=== PATIENT | female | born 1950 | race Caucasian/White ===

== ENCOUNTER 2022-01-31 17:42 | Inpatient (IN) | payer MEDICARE, BC ==
--- NOTE | 2022-01-31 18:59 | ED ---
General Adult HPI - General Chief complaint: Shortness of Breath Stated complaint: Pneumonia Time Seen by Provider: 01/31/22 18:39 Source: patient, RN notes reviewed, old records reviewed Mode of arrival: EMS Limitations: no limitations - History of Present Illness Initial comments: This is a 71-year-old female presents emergency room stating she's had a 10 day history of cough and some shortness of breath. Patient states that she went and saw her doctor Dr. Bustamante and he told her she had pneumonia that she had to come to the emergency department for admission. Patient states she better not be admitted if she can go home. Patient denies chest pain or palpitations. Patient denies any lightheadedness or dizziness. Patient denies any fever. Patient denies any chills. Patient denies any numbness or weakness. Patient denies abdominal pain patient denies nausea vomiting diarrhea. - Related Data Allergies Allergy/AdvReac Type Severity Reaction Status Date / Time No Known Allergies Allergy Verified 01/31/22 17:59 Review of Systems ROS Statement: Those systems with pertinent positive or pertinent negative responses have been documented in the HPI. ROS Other: All systems not noted in ROS Statement are negative. General Exam - General Exam Comments Initial Comments: GENERAL: Patient is well-developed and well-nourished. Patient is nontoxic and well- hydrated and is in no acute distress. ENT: Neck is soft and supple. No significant lymphadenopathy is noted. Oropharynx is clear. Moist mucous membranes. Neck has full range of motion without hazel citing any pain. EYES: The sclera were anicteric and conjunctiva were pink and moist. Extraocular movements were intact and pupils were equal round and reactive to light. Eyelids were unremarkable. PULMONARY: Patient has occasional extra wheeze CARDIOVASCULAR: There is a regular rate and rhythm without any murmurs gallops or rubs. ABDOMEN: Soft and nontender with normal bowel sounds. SKIN: Skin is clear with no lesions or rashes and otherwise unremarkable. NEUROLOGIC: Patient is alert and oriented x3. Cranial nerves II through XII are grossly intact. Motor and sensory are also intact. Normal speech, volume and content. Symmetrical smile. MUSCULOSKELETAL: Normal extremities with adequate strength and full range of motion. LYMPHATICS: No significant lymphadenopathy is noted PSYCHIATRIC: Normal psychiatric evaluation. Limitations: no limitations Course Vital Signs 01/31/22 17:47 Temperature 98.3 F Pulse Rate 81 Respiratory 20 Rate Blood Pressure 133/64 Medical Decision Making - Medical Decision Making I interpreted the EKG EKG shows a sinus rhythm with occasional PAC at a rate of 89 bpm MT interval 235 QRS is 90 QT interval 311 QTC is 358. Patient's EKG shows no ST segment elevation or depression. Patient's chest x-ray was interpreted by me. Patient's chest x-ray showed a left upper lobe and left lower lobe pneumonia with a potential spiculated mass in the left lower lobe. Patient also had a hemoglobin was 6.9 I ordered 1 unit of packed red blood cells. I started the patient on antibiotics. I spoke with Dr. Rose he agreed to admit the patient admitted the patient wrote admitting orders and I continued antibiotics on the floor. - Lab Data Result diagrams: 01/31/22 19:38 01/31/22 19:38 Lab Results 01/31/22 01/31/22 01/31/22 Range/Units 19:38 19:38 19:38 WBC 18.9 H (3.8-10.6) k/uL RBC 1.89 L (3.80-5.40) m/uL Hgb 6.9 L* (11.4-16.0) gm/dL Hct 20.6 L (34.0-46.0) % MCV 108.9 H (80.0-100.0) fL MCH 36.7 H (25.0-35.0) pg MCHC 33.7 (31.0-37.0) g/dL RDW 18.6 H (11.5-15.5) % Plt Count 433 (150-450) k/uL MPV 9.9 Neutrophils % (Manual) 84 % Band Neuts % (Manual) 3 % Lymphocytes % (Manual) 7 % Monocytes % (Manual) 6 % Neutrophils # (Manual) 16.40 H (1.3-7.7) k/uL Lymphocytes # (Manual) 1.32 (1.0-4.8) k/uL Monocytes # (Manual) 1.13 H (0-1.0) k/uL Nucleated RBCs 0 (0-0) /100 WBC Manual Slide Review Performed Hypochromasia Slight Poikilocytosis Slight Anisocytosis Slight Macrocytosis Marked A Sodium 134 L (137-145) mmol/L Potassium 3.6 (3.5-5.1) mmol/L Chloride 98 (98-107) mmol/L Carbon Dioxide 25 (22-30) mmol/L Anion Gap 11 mmol/L BUN 31 H (7-17) mg/dL Creatinine 1.10 H (0.52-1.04) mg/dL Est GFR (CKD-EPI)AfAm 59 (>60 ml/min/1.73 sqM) Est GFR (CKD-EPI)NonAf 51 (>60 ml/min/1.73 sqM) Glucose 125 H (74-99) mg/dL Plasma Lactic Acid Walter 1.3 (0.7-2.0) mmol/L Calcium 9.0 (8.4-10.2) mg/dL Total Bilirubin 0.4 (0.2-1.3) mg/dL AST 30 (14-36) U/L ALT 24 (4-34) U/L Alkaline Phosphatase 107 (38-126) U/L Total Protein 7.2 (6.3-8.2) g/dL Albumin 3.6 (3.5-5.0) g/dL Critical Care Time Critical Care Time: Yes Total Critical Care Time: 35 Disposition Clinical Impression: Anemia, Left lower lobe pneumonia, Left upper lobe pneumonia Disposition: ADMITTED IP TO THIS HOSP Referrals: Hitesh Bustamante DO [Primary Care Provider] - 1-2 days Time of Disposition: 20:19
[2022-01-31 19:46] LABS: Anisocytosis Slight; HCT 20.6 % (34.0-46.0); Hypochromasia Slight; MCH 36.7 pg (25.0-35.0); MCHC 33.7 g/dL (31.0-37.0); MCV 108.9 fL (80.0-100.0); Macrocytosis Marked; Mean Platelet Volume 9.9; Platelet Count 433 k/uL (150-450); Poikilocytosis Slight; RBC 1.89 m/uL (3.80-5.40); RDW 18.6 % (11.5-15.5); WBC 18.9 k/uL (3.8-10.6)
[2022-01-31 19:51] LABS: HGB 6.9 gm/dL (11.4-16.0)
[2022-01-31 19:56] LABS: Albumin 3.6 g/dL (3.5-5.0); Potassium 3.6 mmol/L (3.5-5.1); Total Bilirubin 0.4 mg/dL (0.2-1.3); Total Protein 7.2 g/dL (6.3-8.2)
[2022-01-31 20:03] LABS: Band Neutrophils % 3 %; Lymphocytes # (M) 1.32 k/uL (1.0-4.8); Monocytes # (M) 1.13 k/uL (0-1.0); Neutrophils % (M) 84 %; Nucleated Red Blood Cells 0 /100 WBC (0-0); Total Cells Counted 100
[2022-01-31] MEDS ORDERED: AZITHROMYCIN 500 MG in SODIUM CHLORIDE 0.9% 250 ML IVPB STA (20:20)
[2022-01-31] MEDS ORDERED: PNEUMONIA PROTOCOL UTILIZED 1 EACH MISC PO PRN (20:20)
--- NOTE | 2022-01-31 20:21 | XR ---
EXAMINATION TYPE: XR chest 2V DATE OF EXAM: 01/31/2022 COMPARISON: NONE HISTORY: Short of breath TECHNIQUE: 2 views FINDINGS: There is an 8 cm masslike area of consolidation in the left upper lobe. There is coarsening of interstitial markings. No gross heart failure. Heart size is normal. No pleural effusion. There i s some linear infiltrate in the left lower lobe and right lower lobe posteriorly. Bony thorax appears intact. IMPRESSION: Pulmonary infiltrates as above. Masslike consolidation left upper lobe. Follow-up is darrius mmended.
[2022-01-31] MEDS ORDERED: SODIUM CHLORIDE 0.9% 500 ML 500 ML IV ONE (20:38)
[2022-01-31] MEDS ORDERED: SODIUM CHLORIDE 0.9% 1,000 ML IV ONE (20:38)
[2022-01-31 20:44] LABS: Anisocytosis Slight; Basophils # (A) 0.1 k/uL (0-0.2); Basophils % (A) 1 %; Eosinophils % (A) 0 %; HCT 21.8 % (34.0-46.0); HGB 7.3 gm/dL (11.4-16.0); Hypochromasia Slight; Lymphocytes # (A) 1.5 k/uL (1.0-4.8); Lymphocytes % (A) 8 %; MCH 36.6 pg (25.0-35.0); MCHC 33.6 g/dL (31.0-37.0); Macrocytosis Marked; Mean Platelet Volume 9.5; Monocytes # (A) 1.7 k/uL (0-1.0); Monocytes % (A) 9 %; Neutrophils # (A) 15.5 k/uL (1.3-7.7); Neutrophils % (A) 79 %; Platelet Count 448 k/uL (150-450); Poikilocytosis Slight; RDW 18.3 % (11.5-15.5); WBC 19.7 k/uL (3.8-10.6)
[2022-01-31 20:53] LABS: INR 1.1 (<1.2); Partial Thromboplastin Time 22.2 sec (22.0-30.0); Prothrombin Time 11.1 sec (9.0-12.0)
[2022-01-31 21:34] LABS: Polychromasia Present
[2022-01-31] MEDS ORDERED: RX INFO: IV CONTRAST WAS GIVEN 1 EACH MISC MISCELLANE PRN (22:17)
[2022-01-31] MEDS ORDERED: CALCIUM CARBONATE 500 MG CHEWABLE PO PRN (22:18)
[2022-01-31] MEDS ORDERED: MELATONIN 3 MG TABLET PO PRN (22:18)
[2022-01-31] MEDS ORDERED: NALOXONE 0.4 MG/ML 1 ML VIAL IV PRN (22:18)
[2022-01-31] MEDS ORDERED: LORazepam 0.5 MG TAB PO PRN (22:18)
[2022-01-31] MEDS ORDERED: ACETAMINOPHEN TAB 325 MG TAB PO PRN (22:18)
[2022-01-31] MEDS ORDERED: LACTULOSE 20 GM/30 ML CUP PO PRN (22:18)
[2022-01-31] MEDS ORDERED: ONDANSETRON 4 MG/2 ML VIAL IVP PRN (22:18)
--- NOTE | 2022-01-31 22:19 | P.HPIM ---
History of Present Illness H&P Date: 01/31/22 Chief Complaint: Short of breath This is a pleasant 71-year-old patient who is as established herself with her PCP Dr. Bustamante today. 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 Stem cell transplant was carried out. 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 Forward a week patient been having some cold chills cough. No fever no chills. Has recently noticed that she is getting increasing shortly breath and gets easily tired. Denies any weight loss. Appetite is fair. No change in bowel pattern. Had Hx x-ray was admitted for pneumonia. Also for a hemoglobin of 6.9. During that she is symptomatic weak and tired she'll be transfused blood. 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 Smoked a pack a day for over 35 years stopped about 15 years ago. Alcohol rarely Family history: Reviewed, noncontributory to presentation Physical examination: VITAL SIGNS: 98.3, 91, 20, 133/64, 94% on 2 L GENERAL: BMI 19.8, 10 pills sitting up awake tired. Clubbing. Loss of muscle mass and subcutaneous fat EYES: Pupils equal. Conjunctiva normal. HEENT: External appearance of nose and ears normal, oral cavity grossly normal. NECK: JVD not raised; masses not palpable. HEART: First and second heart sounds are normal; no edema. LUNGS:[ Respiratory rate increased, diminished breath sounds on expiration and wheezing some scattered crackles. ABDOMEN: Soft, nontender, liver spleen not palpable, no masses palpable. PSYCH: Alert and oriented x3; mood and affect normal. MUSCULOSKELETAL:No Clubbing/cyanosis;muscles-grossly intact, OA NEUROLOGICAL: Cranial nerves grossly intact; no facial asymmetry, power and sensation grossly intact. LYMPHATICS: No lymph nodes palpable in the axilla and neck INVESTIGATIONS, reviewed in the clinical context: White count 18.9 hemoglobin 6.9 MCV 108.9 platelets 433 sodium 1:30/83.6 BUN 31 and creatinine 1.10 Stool occult blood: Negative COVID 19 PCR: Not detected EKG tracing personally reviewed by me-normal sinus rhythm. Nonspecific T-wave changes. Chest x-ray film personally reviewed by me-masslike consolidation left upper lobe. Coarse markings. Hyperinflation Assessment and plan: -Suspect underlying pneumonia left upper lobe, gram-negative organism suspected IV ceftriaxone. -Concern for underlying malignancy left upper lobe in a previous smoker. Computed tomography scan chest with contrast in a.m. -Acute COPD exacerbation in an ex-smoker DuoNeb, Pulmicort -Mild protein calorie malnutrition Ensure IV ceftriaxone. DuoNeb. Nebulized Pulmicort. Medications and Allergies Home Medications Medication Instructions Recorded Confirmed Type Albuterol Nebulized [Ventolin 2.5 mg INHALATION RT-QID PRN 01/31/22 01/31/22 History Nebulized] Budesonide/Formoterol Fumarate 2 puff INHALATION RT-BID 01/31/22 01/31/22 History [Symbicort 160-4.5 Mcg Inhaler] Cholecalciferol [Vitamin D3 (25 50 mcg PO DAILY 01/31/22 01/31/22 History Mcg = 1000 Iu)] Montelukast [Singulair] 10 mg PO HS 01/31/22 01/31/22 History Vit C/E/Zn/Coppr/Lutein/Zeaxan 1 cap PO BID 01/31/22 01/31/22 History [Preservision Areds 2 Softgel] Allergies Allergy/AdvReac Type Severity Reaction Status Date / Time No Known Allergies Allergy Verified 01/31/22 20:53 Physical Exam Vitals: Vital Signs Temp Pulse Pulse Resp BP BP Pulse Ox 01/31/22 21:29 98.2 F 91 15 145/73 95 01/31/22 20:29 91 20 141/57 94 L 01/31/22 17:47 98.3 F 81 20 133/64 Intake and Output 01/31/22 01/31/22 01/31/22 06:59 14:59 22:59 Other: Weight 50.802 kg Results CBC & Chem 7: 01/31/22 20:38 01/31/22 19:38 Labs: Abnormal Lab Results - Last 24 Hours (Table) 01/31/22 01/31/22 01/31/22 Range/Units 19:38 19:38 20:23 WBC 18.9 H (3.8-10.6) k/uL RBC 1.89 L (3.80-5.40) m/uL Hgb 6.9 L* (11.4-16.0) gm/dL Hct 20.6 L (34.0-46.0) % MCV 108.9 H (80.0-100.0) fL MCH 36.7 H (25.0-35.0) pg RDW 18.6 H (11.5-15.5) % Neutrophils # (1.3-7.7) k/uL Neutrophils # (Manual) 16.40 H (1.3-7.7) k/uL Monocytes # (0-1.0) k/uL Monocytes # (Manual) 1.13 H (0-1.0) k/uL Macrocytosis Marked A Sodium 134 L (137-145) mmol/L BUN 31 H (7-17) mg/dL Creatinine 1.10 H (0.52-1.04) mg/dL Glucose 125 H (74-99) mg/dL Crossmatch See Detail 01/31/22 Range/Units 20:38 WBC 19.7 H (3.8-10.6) k/uL RBC 2.00 L (3.80-5.40) m/uL Hgb 7.3 L (11.4-16.0) gm/dL Hct 21.8 L (34.0-46.0) % MCV 109.0 H (80.0-100.0) fL MCH 36.6 H (25.0-35.0) pg RDW 18.3 H (11.5-15.5) % Neutrophils # 15.5 H (1.3-7.7) k/uL Neutrophils # (Manual) (1.3-7.7) k/uL Monocytes # 1.7 H (0-1.0) k/uL Monocytes # (Manual) (0-1.0) k/uL Macrocytosis Marked A Sodium (137-145) mmol/L BUN (7-17) mg/dL Creatinine (0.52-1.04) mg/dL Glucose (74-99) mg/dL Crossmatch
[2022-01-31] MEDS ORDERED: AZITHROMYCIN 500 MG in SODIUM CHLORIDE 0.9% 250 ML IVPB ONE (23:00)
[2022-01-31] MEDS: SODIUM CHLORIDE 0.9% 1,000 ML IV SCH (23:08)
[2022-01-31] MEDS: ENOXAPARIN 40 MG/0.4 ML SYRINGE SQ SCH (23:56)
[2022-02-01 06:49] LABS: African American GFR (CKD) 61 (>60 ml/min/1.73 sqM); Anion Gap 5 mmol/L; Blood Urea Nitrogen 27 mg/dL (7-17); Calcium 8.4 mg/dL (8.4-10.2); Carbon Dioxide 27 mmol/L (22-30); Chloride 105 mmol/L (98-107); Glucose 130 mg/dL (74-99); Non-African American GFR(CKD) 53 (>60 ml/min/1.73 sqM); Potassium 3.8 mmol/L (3.5-5.1); Sodium 137 mmol/L (137-145)
--- NOTE | 2022-02-01 07:09 | P.GSCN ---
History of Present Illness Consult date: 02/01/22 History of present illness: Patient presented to the hospital with hemoglobin less than 7.0. She is status post transfusion. Patient has pre-existing history of AML. Last upper endoscopy was at [facility] over 5+ years ago. Patient pending computed tomography scan for evaluation of lung mass. We'll proceed with upper endoscopy for anemia assessment today. Colonoscopy after bowel prep while inpatient. 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 History of Any Multi-Drug Resistant Organisms: None Reported Past Surgical History: Tonsillectomy Past Anesthesia/Blood Transfusion Reactions: No Reported Reaction Past Psychological History: No Psychological Hx Reported Smoking Status: Former smoker Medications and Allergies Home Medications Medication Instructions Recorded Confirmed Type Albuterol Nebulized [Ventolin 2.5 mg INHALATION RT-QID PRN 01/31/22 01/31/22 History Nebulized] Budesonide/Formoterol Fumarate 2 puff INHALATION RT-BID 01/31/22 01/31/22 History [Symbicort 160-4.5 Mcg Inhaler] Cholecalciferol [Vitamin D3 (25 50 mcg PO DAILY 01/31/22 01/31/22 History Mcg = 1000 Iu)] Montelukast [Singulair] 10 mg PO HS 01/31/22 01/31/22 History Vit C/E/Zn/Coppr/Lutein/Zeaxan 1 cap PO BID 01/31/22 01/31/22 History [Preservision Areds 2 Softgel] Allergies Allergy/AdvReac Type Severity Reaction Status Date / Time No Known Allergies Allergy Verified 01/31/22 20:53 Surgical - Exam Vital Signs Temp Pulse Resp BP 98.3 F 81 20 133/64 01/31/22 17:47 01/31/22 17:47 01/31/22 17:47 01/31/22 17:47 Results - Labs 01/31/22 20:38 02/01/22 06:05 Abnormal Lab Results - Last 24 Hours (Table) 01/31/22 01/31/22 01/31/22 Range/Units 19:38 19:38 20:23 WBC 18.9 H (3.8-10.6) k/uL RBC 1.89 L (3.80-5.40) m/uL Hgb 6.9 L* (11.4-16.0) gm/dL Hct 20.6 L (34.0-46.0) % MCV 108.9 H (80.0-100.0) fL MCH 36.7 H (25.0-35.0) pg RDW 18.6 H (11.5-15.5) % Neutrophils # (1.3-7.7) k/uL Neutrophils # (Manual) 16.40 H (1.3-7.7) k/uL Monocytes # (0-1.0) k/uL Monocytes # (Manual) 1.13 H (0-1.0) k/uL Macrocytosis Marked A Sodium 134 L (137-145) mmol/L BUN 31 H (7-17) mg/dL Creatinine 1.10 H (0.52-1.04) mg/dL Glucose 125 H (74-99) mg/dL Crossmatch See Detail 01/31/22 02/01/22 Range/Units 20:38 06:05 WBC 19.7 H (3.8-10.6) k/uL RBC 2.00 L (3.80-5.40) m/uL Hgb 7.3 L (11.4-16.0) gm/dL Hct 21.8 L (34.0-46.0) % MCV 109.0 H (80.0-100.0) fL MCH 36.6 H (25.0-35.0) pg RDW 18.3 H (11.5-15.5) % Neutrophils # 15.5 H (1.3-7.7) k/uL Neutrophils # (Manual) (1.3-7.7) k/uL Monocytes # 1.7 H (0-1.0) k/uL Monocytes # (Manual) (0-1.0) k/uL Macrocytosis Marked A Sodium (137-145) mmol/L BUN 27 H (7-17) mg/dL Creatinine 1.07 H (0.52-1.04) mg/dL Glucose 130 H (74-99) mg/dL Crossmatch Diabetes panel 01/31/22 02/01/22 Range/Units 19:38 06:05 Sodium 134 L 137 (137-145) mmol/L Potassium 3.6 3.8 (3.5-5.1) mmol/L Chloride 98 105 (98-107) mmol/L Carbon Dioxide 25 27 (22-30) mmol/L BUN 31 H 27 H (7-17) mg/dL Creatinine 1.10 H 1.07 H (0.52-1.04) mg/dL Glucose 125 H 130 H (74-99) mg/dL Calcium 9.0 8.4 (8.4-10.2) mg/dL AST 30 (14-36) U/L ALT 24 (4-34) U/L Alkaline Phosphatase 107 (38-126) U/L Total Protein 7.2 (6.3-8.2) g/dL Albumin 3.6 (3.5-5.0) g/dL Calcium panel 01/31/22 02/01/22 Range/Units 19:38 06:05 Calcium 9.0 8.4 (8.4-10.2) mg/dL Albumin 3.6 (3.5-5.0) g/dL Pituitary panel 01/31/22 02/01/22 Range/Units 19:38 06:05 Sodium 134 L 137 (137-145) mmol/L Potassium 3.6 3.8 (3.5-5.1) mmol/L Chloride 98 105 (98-107) mmol/L Carbon Dioxide 25 27 (22-30) mmol/L BUN 31 H 27 H (7-17) mg/dL Creatinine 1.10 H 1.07 H (0.52-1.04) mg/dL Glucose 125 H 130 H (74-99) mg/dL Calcium 9.0 8.4 (8.4-10.2) mg/dL Adrenal panel 01/31/22 02/01/22 Range/Units 19:38 06:05 Sodium 134 L 137 (137-145) mmol/L Potassium 3.6 3.8 (3.5-5.1) mmol/L Chloride 98 105 (98-107) mmol/L Carbon Dioxide 25 27 (22-30) mmol/L BUN 31 H 27 H (7-17) mg/dL Creatinine 1.10 H 1.07 H (0.52-1.04) mg/dL Glucose 125 H 130 H (74-99) mg/dL Calcium 9.0 8.4 (8.4-10.2) mg/dL Total Bilirubin 0.4 (0.2-1.3) mg/dL AST 30 (14-36) U/L ALT 24 (4-34) U/L Alkaline Phosphatase 107 (38-126) U/L Total Protein 7.2 (6.3-8.2) g/dL Albumin 3.6 (3.5-5.0) g/dL
[2022-02-01] MEDS: SODIUM CHLORIDE 0.9% 1,000 ML IV SCH ×2 (07:45→18:50)
--- NOTE | 2022-02-01 08:06 | CT ---
EXAMINATION TYPE: CT chest w con DATE OF EXAM: 02/01/2022 COMPARISON: None HISTORY: Left upper lobe suspected mass CT DLP: 181.4 mGycm Automated exposure control for dose reduction was used. CONTRAST: CT scan of the chest is performed with IV Contrast, patient injected with 100 ml mL of Isovue 370. FINDINGS: LUNGS: There is a left upper lobe mass measuring 6.3 x 5.7 cm with early central necrosis. This is fe lt to reflect malignancy until proven otherwise. There is extension to the lateral pleural surface. L eft apical pleural thickening noted as well. No additional mass is identified at this time. There are basilar areas of atelectasis or infiltrate. Groundglass density right upper lobe may reflect inflamm atory process. A few scattered emphysematous bulla noted. MEDIASTINUM: There are no greater than 1 cm hilar or mediastinal lymph nodes. No pericardial effusi on is seen. Thoracic aorta is of normal caliber. The heart is not enlarged. UPPER ABDOMEN: No significant abnormality appreciated. OTHER: No additional significant abnormality is seen. IMPRESSION: 1. Left upper lobe mass felt to reflect malignancy until proven otherwise. Subcentimeter prevascular space lymph nodes noted. 2. Basilar atelectasis and/or infiltrates as well as scattered areas of groundglass infiltrate right upper lobe could reflect acute inflammatory process. Correlate clinically.
--- NOTE | 2022-02-01 08:10 | XR ---
EXAMINATION TYPE: XR chest 2V DATE OF EXAM: 02/01/2022 COMPARISON: 02/10/2022 HISTORY: Shortness of breath TECHNIQUE: Frontal and lateral views of the chest are obtained. FINDINGS: Scattered senescent parenchymal changes noted. Hyperinflation compatible with COPD. Left upper lobe mass persists. Patchy basilar densities may reflect infiltrate and/or atelectasis. Heart size is stable. Mediastinal structures are stable and grossly unremarkable. No evidence for hilar prominence. Degenerative changes dorsal spine. IMPRESSION: 1. Left upper lobe mass persists. Patchy basilar densities may reflect infiltrate and/or atelectasis.
[2022-02-01] MEDS: IPRATROPIUM-ALBUTEROL 3 ML NEB INHALATION SCH ×4 (08:11→20:00)
[2022-02-01] MEDS: BUDESONIDE 1 MG/2 ML NEBU INHALATION SCH ×2 (08:11→20:00)
[2022-02-01 11:15] LABS: % Iron Saturation 36.83 (12.00-45.00); Iron 59 ug/dL (50-170); Total Iron Binding Capacity 161 ug/dL (228-460)
[2022-02-01] MEDS ORDERED: MELATONIN 5 MG TABLET PO PRN (11:49)
[2022-02-01] MEDS ORDERED: ARTIFICIAL TEARS-HYPROMELLOSE DROPS 15 ML BTL BOTH EYES PRN (11:49)
[2022-02-01] MEDS ORDERED: LIDOCAINE 2% INJ 20 MG/ML (2 ML VIAL) ONE (12:08)
[2022-02-01] MEDS ORDERED: PROPOFOL 10 MG/ML 20 ML VIAL IV ONE (12:08)
[2022-02-01] MEDS ORDERED: IV FLUID CONTINUATION 500 ML IV ONE (12:16)
[2022-02-01] MEDS: ENOXAPARIN 40 MG/0.4 ML SYRINGE SQ SCH (12:32)
[2022-02-01 12:46] LABS: Anisocytosis Moderate; HCT 27.5 % (34.0-46.0); Hypochromasia Slight; MCH 35.4 pg (25.0-35.0); MCHC 34.4 g/dL (31.0-37.0); Macrocytosis Marked; Mean Platelet Volume 10.4; Platelet Count 414 k/uL (150-450); Poikilocytosis Slight; RBC 2.67 m/uL (3.80-5.40); RDW 21.4 % (11.5-15.5); WBC 20.7 k/uL (3.8-10.6)
--- NOTE | 2022-02-01 12:46 | P.PCN ---
Date of Procedure: 02/01/22 Description of Procedure: PREOPERATIVE DIAGNOSIS: Acute anemia History of AML Status post blood transfusion POSTOPERATIVE DIAGNOSIS: Diaphragmatic hiatal hernia History OPERATION: Esophagogastroduodenoscopy SURGEON: Emilia Ferrer MD ANESTHESIA: MAC. INDICATIONS: The patient is a 71-year-old female who presents with acute anemia status post blood transfusion. Benefits and risks of the procedure were described. Informed consent was obtained. DESCRIPTION: The patient was brought into the endoscopy suite and laid in the left lateral decubitus position. An Olympus gastroscope was passed along the posterior oropharynx down to the distal esophagus where the squamocolumnar junction was encountered at 36 cm from the incisors. The stomach was entered and no bile reflux was found. Additional findings are listed below. The first through third portion of the duodenum was examined and unremarkable. Retroflexion of the scope confirmed Hill grade 2 lower esophageal valve. The squamocolumnar junction demonstrated LA grade B erosive esophagitis. The stomach was desufflated. The patient tolerated the procedure well. FINDINGS: Squamocolumnar junction 36 cm from the incisors. Diaphragmatic hiatus at 40 cm. Hiatal hernia, 4 cm Hill grade 3 lower esophageal valve. LA grade B erosive esophagitis. No active duodenitis. No stigmata of bleeding Chronic gastritis RECOMMENDATIONS: 1. Diet as tolerated 2. Upper endoscopy as needed 3. Recommend colonoscopy for anemia evaluation
[2022-02-01 12:47] LABS: HGB 9.5 gm/dL (11.4-16.0); MCV 103.1 fL (80.0-100.0)
[2022-02-01 13:37] LABS: Band Neutrophils % 1 %; Eosinophils # (M) 0.21 k/uL (0-0.7); Lymphocytes # (M) 1.04 k/uL (1.0-4.8); Monocytes # (M) 0.21 k/uL (0-1.0); Neutrophils % (M) 92 %; Nucleated Red Blood Cells 0 /100 WBC (0-0); Polychromasia Present; Total Cells Counted 100
--- NOTE | 2022-02-01 13:38 | P.CNPUL ---
History of Present Illness Consult date: 02/01/22 Requesting physician: Christiano Rose Reason for consult: dyspnea, cough, COPD, hypoxemia, lung mass, abnormal CXR/CT Chief complaint: Shortness of breath and cough. History of present illness: Pulmonary consult dated 02/01/2022. 71-year-old female who presents to the emergency department on January 31, brought in by EMS, because of shortness of breath. She apparently has had a 10 day course of increasing shortness of breath, cough, and occasional phlegm production. She apparently was being treated by her primary care physician for pneumonia. Because she was not getting better, and actually getting worse, she was sent to the emergency room to be evaluated. The patient had a chest x-ray which showed a infiltrate/mass in the left upper lobe. CAT scan suggested mask, and likely we are dealing with bronchogenic carcinoma. The patient was a heavy smoker for a number of years, quit in 2006. White count 20.7, hemoglobin 9.5, hematocrit 27.5, and platelet count normal. Her initial hemoglobin was 6.9. Sodium 137, potassium 3.8, chlorides 105, CO2 27, BUN 27, and creatinine 1.07. Pro-calcitonin level was 0.45. TSH was normal. Testing for coronavirus was negative. Chest x-ray shows a mass in the left upper lobe. Computed tomography scan shows a left upper lobe mass, felt to reflect malignancy until proven otherwise. Review of Systems REVIEW OF SYSTEMS: CONSTITUTIONAL: [Negative.] NEUROLOGIC: [ Negative.] HEENT: [ Negative.] CARDIAC: [Negative.] PULMONARY: Shortness of breath and cough, and minimal phlegm production. GI: [Negative.] : [Negative.] RHEUMATOLOGIC: [ Negative.] IMMUNOLOGIC: [ Negative.] ENDOCRINE: [Negative. 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 History of Any Multi-Drug Resistant Organisms: None Reported Past Surgical History: Tonsillectomy Past Anesthesia/Blood Transfusion Reactions: No Reported Reaction Past Psychological History: No Psychological Hx Reported Smoking Status: Former smoker Medications and Allergies Home Medications Medication Instructions Recorded Confirmed Type Albuterol Nebulized [Ventolin 2.5 mg INHALATION RT-QID PRN 01/31/22 01/31/22 History Nebulized] Budesonide/Formoterol Fumarate 2 puff INHALATION RT-BID 01/31/22 01/31/22 History [Symbicort 160-4.5 Mcg Inhaler] Cholecalciferol [Vitamin D3 (25 50 mcg PO DAILY 01/31/22 01/31/22 History Mcg = 1000 Iu)] Montelukast [Singulair] 10 mg PO HS 01/31/22 01/31/22 History Vit C/E/Zn/Coppr/Lutein/Zeaxan 1 cap PO BID 01/31/22 01/31/22 History [Preservision Areds 2 Softgel] Lifitegrast [Xiidra] 1 dropper BOTH EYES BID 02/01/22 02/01/22 History Melatonin 5 mg PO HS PRN 02/01/22 02/01/22 History Propylene Glycol/Peg 400/Pf 1 dropper BOTH EYES QID PRN 02/01/22 02/01/22 History [Systane 0.3-0.4% Eye Drop] Allergies Allergy/AdvReac Type Severity Reaction Status Date / Time No Known Allergies Allergy Verified 01/31/22 20:53 Physical Exam Osteopathic Statement: *. No significant issues noted on an osteopathic structural exam other than those noted in the History and Physical/Consult. Vitals: Vital Signs Temp Pulse Pulse Resp BP BP Pulse Ox 02/01/22 11:48 76 02/01/22 11:34 76 02/01/22 08:25 74 02/01/22 08:15 74 95 02/01/22 07:13 97.9 F 84 12 126/62 95 02/01/22 05:21 98.3 F 85 18 109/58 96 02/01/22 02:32 97.9 F 89 16 118/61 96 02/01/22 02:12 98.3 F 98 18 99/46 93 L 02/01/22 01:56 100.3 F H 95 16 114/63 96 02/01/22 01:20 99.5 F 95 15 116/63 93 L 01/31/22 21:29 98.2 F 91 15 145/73 95 01/31/22 20:29 91 20 141/57 94 L 01/31/22 17:47 98.3 F 81 20 133/64 Intake and Output 01/31/22 02/01/22 02/01/22 22:59 06:59 14:59 Intake Total 310 200 Balance 310 200 Intake: IV 200 Blood Product 310 Rc As-1 Unit 310 [id number] Other: # Voids 3 Weight 50.802 kg No acute distress, oriented 3. No respiratory distress. Currently on 2 L of oxygen. HEENT examination is grossly unremarkable. Neck supple. Full range of motion. No adenopathy thyromegaly or neck vein distention. Cardiovascular examination reveals regular rhythm rate. S1-S2 normal. No S3 or S4. No discernible murmur noted. Heart rate 76 bpm. Lungs reveal scattered bilateral rhonchi and expiratory wheezes. No crackles. Breath sounds equal bilaterally. 2 L saturation is 95%. Abdomen soft bowel sounds are heard. No masses or tenderness. Extremities are intact. No cyanosis clubbing or edema. Skin is without rash or lesion. Neurologic examination is brief but nonfocal. Results - Laboratory Findings CBC and BMP: 02/01/22 11:40 02/01/22 06:05 PT/INR, D-dimer PT 11.1 sec (9.0-12.0) 01/31/22 20:23 INR 1.1 (<1.2) 01/31/22 20:23 Abnormal lab findings: Abnormal Labs 01/31/22 01/31/22 01/31/22 19:38 19:38 20:23 WBC 18.9 H RBC 1.89 L Hgb 6.9 L* Hct 20.6 L MCV 108.9 H MCH 36.7 H RDW 18.6 H Neutrophils # Neutrophils # (Manual) 16.40 H Monocytes # Monocytes # (Manual) 1.13 H Macrocytosis Marked A Sodium 134 L BUN 31 H Creatinine 1.10 H Glucose 125 H TIBC Transferrin Ferritin Procalcitonin Crossmatch See Detail 01/31/22 02/01/22 02/01/22 20:38 06:05 06:05 WBC 19.7 H RBC 2.00 L Hgb 7.3 L Hct 21.8 L MCV 109.0 H MCH 36.6 H RDW 18.3 H Neutrophils # 15.5 H Neutrophils # (Manual) Monocytes # 1.7 H Monocytes # (Manual) Macrocytosis Marked A Sodium BUN 27 H Creatinine 1.07 H Glucose 130 H TIBC 161 L Transferrin 115.0 L Ferritin 2866.0 H Procalcitonin Crossmatch 02/01/22 02/01/22 06:05 11:40 WBC 20.7 H RBC 2.67 L Hgb 9.5 L D Hct 27.5 L MCV 103.1 H D MCH 35.4 H RDW 21.4 H Neutrophils # Neutrophils # (Manual) Monocytes # Monocytes # (Manual) Macrocytosis Marked A Sodium BUN Creatinine Glucose TIBC Transferrin Ferritin Procalcitonin 0.45 H Crossmatch - Diagnostic Findings Chest x-ray: image reviewed CT scan - chest: image reviewed Assessment and Plan Assessment: Shortness of breath, likely related to underlying COPD exacerbation, from previous heavy tobacco use. 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 Previous history of tobacco use. Anemia, status post EGD, February 01, with findings of erosive gastritis, hiatal hernia, and diaphragmatic hiatus. Plan: Plan dated 02/01/2022. The patient will be maintained nothing by mouth after midnight, and be scheduled for bronchoscopy tomorrow. We explained to the patient that this lesion may represent bronchogenic carcinoma. The patient's currently on antibiotics in the form of azithromycin and ceftriaxone. She is also receiving breathing treatments in the form of albuterol sulfate and ipratropium bromide. Additional recommendations and suggestions are forthcoming. Prognosis is guarded. I will DC the Lovenox. Time with Patient: Greater than 30
--- NOTE | 2022-02-01 16:02 | P.PN ---
Progress Note - Text Progress Note Date: 02/01/22 Chief Complaint: Short of breath This is a pleasant 71-year-old patient who is as established herself with her PCP Dr. Bustamante today. 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 Stem cell transplant was carried out. 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 Forward a week patient been having some cold chills cough. No fever no chills. Has recently noticed that she is getting increasing shortly breath and gets easily tired. Denies any weight loss. Appetite is fair. No change in bowel pattern. Had Hx x-ray was admitted for pneumonia. Also for a hemoglobin of 6.9. During that she is symptomatic weak and tired she'll be transfused blood. Admitted with pneumonia, left upper lobe mass. Started on IV ceftriaxone. COPD exacerbation. DuoNeb. Nebulized Pulmicort. Significant anemia. 02/01/2022: Patient seen earlier this morning. Some wheezing and shortness of breath. Later to underwent EGD by Dr. Lam: LA grade B erosive esophagitis, chronic gastritis. Patient will have bronchoscopy tomorrow. Disc ussed with patient Active Medications Acetaminophen (Acetaminophen Tab 325 Mg Tab) 650 mg PO Q6HR PRN PRN Reason: Mild Pain or Fever > 100.5 Last Admin: 02/01/22 02:09 Dose: 650 mg Albuterol/Ipratropium (Ipratropium-Albuterol 3 Ml Neb) 3 ml INHALATION RT-QID DIEGO Last Admin: 02/01/22 15:49 Dose: 3 ml Artificial Tears (Artificial Tears-Hypromellose Drops 15 Ml Btl) 1 drops BOTH EYES QID PRN PRN Reason: Dry Eye(s) Azithromycin (Azithromycin 500 Mg Tab) 500 mg PO HS DIEGO; Protocol Stop: 02/02/22 21:01 Budesonide (Budesonide 1 Mg/2 Ml Nebu) 1 mg INHALATION RT-BID DIEGO Last Admin: 02/01/22 08:11 Dose: 1 mg Calcium Carbonate/Glycine (Calcium Carbonate 500 Mg Chewable) 1,000 mg PO Q4HR PRN PRN Reason: Dyspepsia Ceftriaxone Sodium 2 gm/ (Sodium Chloride) 50 mls @ 100 mls/hr IVPB HS DIEGO; Protocol Stop: 02/03/22 21:29 Last Admin: 01/31/22 23:09 Dose: 100 mls/hr Sodium Chloride (Saline 0.9%) 1,000 mls @ 100 mls/hr IV .Q10H DIEGO Last Admin: 02/01/22 07:45 Dose: 130 mls/hr Lactulose (Lactulose 20 Gm/30 Ml Cup) 20 gm PO DAILY PRN PRN Reason: Constipation Lorazepam (Lorazepam 0.5 Mg Tab) 0.5 mg PO Q6HR PRN PRN Reason: Anxiety Melatonin (Melatonin 5 Mg Tablet) 5 mg PO HS PRN PRN Reason: Insomnia Miscellaneous Information (Pneumonia Protocol Utilized 1 Each Misc) 1 each PO ONCE PRN PRN Reason: Per Protocol Miscellaneous Information (Rx Info: Iv Contrast Was Given 1 Each Misc) 1 each MISCELLANE DAILY PRN PRN Reason: Per Protocol Stop: 02/02/22 22:17 Naloxone HCl (Naloxone 0.4 Mg/Ml 1 Ml Vial) 0.2 mg IV Q2M PRN PRN Reason: Opioid Reversal Lifitegrast [Xiidra] (1 Each Droperette) 1 dropper BOTH EYES BID DIEGO Ondansetron HCl (Ondansetron 4 Mg/2 Ml Vial) 4 mg IVP Q8HR PRN PRN Reason: Nausea And Vomiting Past medical history to include: COPD, prostatitis, AML with stem cell transplant, 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 Smoked a pack a day for over 35 years stopped about 15 years ago. Alcohol rarely Family history: Reviewed, noncontributory to presentation Physical examination: VITAL SIGNS: 97.6, 97, codeine, 91/65, 93% on 2 L GENERAL: Reclining in bed, awake, tired Clubbing. Loss of muscle mass and subcutaneous fat EYES: Pupils equal. Conjunctiva normal. HEENT: External appearance of nose and ears normal, oral cavity grossly normal. NECK: JVD not raised; masses not palpable. HEART: First and second heart sounds are normal; no edema. LUNGS:[ Respiratory rate increased, diminished breath sounds , expiration / wheezing some scattered crackles. ABDOMEN: Soft, nontender, liver spleen not palpable, no masses palpable. PSYCH: Alert and oriented x3; mood and affect normal. MUSCULOSKELETAL:No Clubbing/cyanosis;muscles-grossly intact, OA INVESTIGATIONS, reviewed in the clinical context: CT chest with contrast: Left upper lobe mass felt to reflect malignancy. Basilar atelectasis/infiltrates. 02/01/2022: White count 20.7 hemoglobin 9.5 platelets 414 BUN 27 creatinine 1.07 Iron 59 TIBC 161 transferrin 115 ferritin 2866 B12 437 procalcitonin 0.45 ESS 0.477 White count 18.9 hemoglobin 6.9 MCV 108.9 platelets 433 sodium 1:30/83.6 BUN 31 and creatinine 1.10 Stool occult blood: Negative COVID 19 PCR: Not detected EKG tracing personally reviewed by me-normal sinus rhythm. Nonspecific T-wave changes. Chest x-ray film personally reviewed by me-masslike consolidation left upper lobe. Coarse markings. Hyperinflation Assessment and plan: -Suspect underlying pneumonia left upper lobe, gram-negative organism suspected IV ceftriaxone. -Concern for underlying malignancy left upper lobe in a previous smoker. Computed tomography scan chest noted. For bronchoscopy tomorrow. -Acute COPD exacerbation in an ex-smoker: Slow to respond DuoNeb, Pulmicort -Esophagitis, gastritis PPI -Mild protein calorie malnutrition Ensure IV ceftriaxone. DuoNeb. Nebulized Pulmicort. For bronchoscopy tomorrow.
[2022-02-01] MEDS: PANTOPRAZOLE 40 MG TABLET PO SCH (16:55)
[2022-02-01 17:47] LABS: HCT 27.8 % (37.2-46.3); HGB 8.7 g/dL (12.0-15.0); MCH 33.5 pg (27.0-32.0); MCHC 31.3 g/dL (32.0-37.0); MCV 106.9 fL (80.0-97.0); Mean Platelet Volume 12.8 fL (9.5-12.2); NRBC Per 100 WBC 0.2 /100 WBCS (0.0-0.0); Platelet Count 407 X 10*3/uL (140-440); RDW 22.1 % (11.5-14.5); WBC 19.95 X 10*3/uL (4.50-10.00)
[2022-02-01 18:25] LABS: Anisocytosis (M) 2+; Basophils # (A) 0.11 X 10*3/uL (0.00-0.10); Basophils % (A) 0.6 %; Crenated RBC 2+; Eosinophils # (A) 0.02 X 10*3/uL (0.04-0.35); Eosinophils % (A) 0.1 %; Immature Grans, Automated 1.7 %; Lymphocytes # (A) 1.79 X 10*3/uL (0.90-5.00); Macrocytosis (M) 2+; Monocytes # (A) 2.63 X 10*3/uL (0.20-1.00); Monocytes % (A) 13.2 %; Neutrophils # (A) 15.07 X 10*3/uL (1.80-7.70); Neutrophils % (A) 75.4 %
[2022-02-01 18:45] LABS: Anisocytosis Moderate; Basophils # (A) 0.1 k/uL (0-0.2); Basophils % (A) 0 %; Eosinophils # (A) 0.1 k/uL (0-0.7); Eosinophils % (A) 0 %; HCT 25.9 % (34.0-46.0); HGB 8.4 gm/dL (11.4-16.0); Hypochromasia Slight; Lymphocytes # (A) 1.7 k/uL (1.0-4.8); Lymphocytes % (A) 8 %; MCH 33.6 pg (25.0-35.0); MCHC 32.4 g/dL (31.0-37.0); MCV 103.4 fL (80.0-100.0); Mean Platelet Volume 9.6; Monocytes # (A) 1.6 k/uL (0-1.0); Monocytes % (A) 8 %; Neutrophils # (A) 16.7 k/uL (1.3-7.7); Neutrophils % (A) 80 %; Platelet Count 408 k/uL (150-450); Poikilocytosis Slight; RDW 21.6 % (11.5-15.5); WBC 20.8 k/uL (3.8-10.6)
[2022-02-01 18:48] LABS: Macrocytosis Marked
[2022-02-01] MEDS: VIT A,C & E-LUTEIN-MINERALS 1 EACH TAB PO SCH (18:50)
[2022-02-01] MEDS: MONTELUKAST 10 MG TAB PO SCH (18:50)
[2022-02-01] MEDS ORDERED: MONTELUKAST 10 MG TAB PO SCH (21:00)
[2022-02-01] MEDS: Lifitegrast [Xiidra] 1 EACH Droperette BOTH EYES SCH (21:43)
[2022-02-01] MEDS: AZITHROMYCIN 500 MG TAB PO SCH (21:48)
[2022-02-02] MEDS: IPRATROPIUM-ALBUTEROL 3 ML NEB INHALATION SCH ×4 (08:22→21:12)
[2022-02-02] MEDS: BUDESONIDE 1 MG/2 ML NEBU INHALATION SCH ×2 (08:22→21:12)
[2022-02-02] MEDS: SODIUM CHLORIDE 0.9% 1,000 ML IV SCH ×3 (09:20→21:46)
[2022-02-02] MEDS: VIT A,C & E-LUTEIN-MINERALS 1 EACH TAB PO SCH ×2 (09:21→17:49)
[2022-02-02] MEDS: CHOLECALCIFEROL 25 MCG (1000 IU) TABLET PO SCH (09:21)
[2022-02-02] MEDS: PANTOPRAZOLE 40 MG TABLET PO SCH (09:21)
[2022-02-02] MEDS: Lifitegrast [Xiidra] 1 EACH Droperette BOTH EYES SCH ×2 (10:58→21:36)
[2022-02-02] MEDS ORDERED: LIDOCAINE 2% INJ 20 MG/ML (2 ML VIAL) ONE (13:08)
[2022-02-02] MEDS ORDERED: PROPOFOL 10 MG/ML 20 ML VIAL IV ONE (13:08)
[2022-02-02] MEDS ORDERED: IV FLUID CONTINUATION 1,000 ML IV ONE ×2 (13:10)
--- NOTE | 2022-02-02 13:53 | P.PN ---
Subjective Progress Note Date: 02/02/22 71-year-old female who presents to the emergency department on January 31, brought in by EMS, because of shortness of breath. She apparently has had a 10 day course of increasing shortness of breath, cough, and occasional phlegm production. She apparently was being treated by her primary care physician for pneumonia. Because she was not getting better, and actually getting worse, she was sent to the emergency room to be evaluated. The patient had a chest x-ray which showed a infiltrate/mass in the left upper lobe. CAT scan suggested mask, and likely we are dealing with bronchogenic carcinoma. The patient was a heavy smoker for a number of years, quit in 2006. White count 20.7, hemoglobin 9.5, hematocrit 27.5, and platelet count normal. Her initial hemoglobin was 6.9. Sodium 137, potassium 3.8, chlorides 105, CO2 27, BUN 27, and creatinine 1.07. Pro-calcitonin level was 0.45. TSH was normal. Testing for coronavirus was negative. Chest x-ray shows a mass in the left upper lobe. Computed tomography scan shows a left upper lobe mass, felt to reflect malignancy until proven otherwise. Progress note dated 02/02/2022 in follow-up on the regular medical floor. He is currently sitting up in bed. Awake and alert in no acute distress. No worsening shortness of breath, cough or congestion.maintaining O2 saturation the mid 90s on 4 L/m per nasal cannula. Afebrile. She did undergo EGD yesterday that revealed diaphragmatic hiatal hernia. No active bleeding. Current hemoglobin 8.4. The plan is for bronchoscopy and biopsy of the left upper lobe mass today. Objective - Vital Signs Vital signs: Vital Signs Temp 97.8 F 02/02/22 13:42 Pulse 95 02/02/22 13:42 Resp 16 02/02/22 13:42 BP 125/64 02/02/22 13:42 Pulse Ox 95 02/02/22 13:42 FiO2 Intake & Output 02/01/22 02/02/22 02/02/22 18:59 06:59 18:59 Intake Total 1200 500 Balance 1200 500 Intake: IV 200 500 Oral 1000 Other: # Voids 4 4 - Exam GENERAL EXAM: Alert, pleasant 71-year-old female, on 4 L nasal cannula, comfortable in no apparent distress. HEAD: Normocephalic. EYES: Normal reaction of pupils, equal size. NOSE: Clear with pink turbinates. THROAT: No erythema or exudates. NECK: No masses, no JVD. CHEST: No chest wall deformity. LUNGS: Equal air entry with few scattered rhonchi. CVS: S1 and S2 normal with no audible murmur, regular rhythm. ABDOMEN: No hepatosplenomegaly, normal bowel sounds, no guarding or rigidity. SPINE: No scoliosis or deformity SKIN: No rashes CENTRAL NERVOUS SYSTEM: No focal deficits, tone is normal in all 4 extremities. EXTREMITIES: There is no peripheral edema. No clubbing, no cyanosis. Peripheral pulses are intact. - Labs CBC & Chem 7: 02/01/22 18:07 02/01/22 06:05 Labs: Abnormal Lab Results - Last 24 Hours (Table) 02/01/22 02/01/22 Range/Units 06:05 18:07 WBC 19.95 H 20.8 H (4.50-10.00) X 10*3/uL RBC 2.60 L 2.50 L (4.10-5.20) X 10*6/uL Hgb 8.7 L 8.4 L (12.0-15.0) g/dL Hct 27.8 L 25.9 L (37.2-46.3) % MCV 106.9 H 103.4 H (80.0-97.0) fL MCH 33.5 H (27.0-32.0) pg MCHC 31.3 L (32.0-37.0) g/dL RDW 22.1 H 21.6 H (11.5-14.5) % MPV 12.8 H (9.5-12.2) fL Absolute Nucleated RBC 0.03 H (0.00-0.00) X 10*3/uL Immature Gran # 0.33 H (0.00-0.04) X 10*3/uL Neutrophils # 15.07 H 16.7 H (1.80-7.70) X 10*3/uL Monocytes # 2.63 H 1.6 H (0.20-1.00) X 10*3/uL Eosinophils # 0.02 L (0.04-0.35) X 10*3/uL Basophils # 0.11 H (0.00-0.10) X 10*3/uL NRBC/100 WBC Diff 0.2 H (0.0-0.0) /100 WBCS Macrocytosis Marked A Microbiology - Last 24 Hours (Table) 02/01/22 08:11 Gram Stain - Preliminary Sputum Sputum Culture - Preliminary 01/31/22 19:15 Blood Culture - Preliminary Blood No Growth after 24 hours 01/31/22 19:30 Blood Culture - Preliminary Blood No Growth after 24 hours Assessment and Plan Assessment: Shortness of breath, likely related to underlying COPD exacerbation, from previous heavy tobacco use. 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 Previous history of tobacco use. Anemia, status post EGD, February 01, with findings of erosive gastritis, hiatal hernia, and diaphragmatic hiatus. Plan: The patient was seen and evaluated Currently stable and on 4 L nasal cannula Plan is for bronchoscopy with biopsies a left upper lobe mass today Patient verbalizes understanding and is agreeable to the plan I have personally seen and examined the patient, performed the documentation and the assessment and plan as written. Number of minutes spent on the visit: 10.
--- NOTE | 2022-02-02 14:02 | FL ---
Intraoperative/procedural fluoroscopic services were provided. Total fluoroscopy time is 36 seconds w ith a total of 1 submitted image to PACS. Please see the operative note for further details.
--- NOTE | 2022-02-02 14:24 | XR ---
EXAMINATION TYPE: XR chest 1V portable DATE OF EXAM: 02/02/2022 CLINICAL HISTORY: Difficulty breathing progress study. TECHNIQUE: Single AP portable upright view of the chest is obtained. COMPARISON: Chest CT from February 01, 2022. FINDINGS: Background chronic emphysematous change with persistent left upper lung consolidation seco ndary to suprahilar mass. Bibasilar opacities remain present. Cardiac silhouette size is stable and u pper limits of normal. Osseous structures remain demineralized with underlying scoliosis. IMPRESSION: Chronic emphysematous change with bibasilar acute infiltrate and/or atelectasis redemonst rated. Persistent left upper lung mass or neoplasm with obstructive left upper lung atelectasis and/o r consolidation. No significant change from one day earlier.
--- NOTE | 2022-02-02 15:50 | P.PN ---
Subjective Progress Note Date: 02/02/22 CHIEF COMPLAINT: Anemia HISTORY OF PRESENT ILLNESS: Patient is status post EGD for evaluation of anemia and results showed a diaphragmatic hiatal hernia, erosive esophagitis and chronic gastritis. Patient is sitting up at bedside chair. She denies any abdominal pain. Denies any nausea or vomiting. She is tolerating diet. Patient scheduled for bronchoscopy and biopsy of left upper lobe mass today with pulmonary service. Afebrile. WBC is 20.8 Hgb 8.4 platelets 408. PHYSICAL EXAM: VITAL SIGNS: Reviewed GENERAL: Well-developed in no acute distress. HEENT: No sclera icterus. Extraocular movements grossly intact. Moist buccal mucosa. Head is atraumatic, normocephalic. Hears conversational speech. No nasal drainage. NECK: Supple without lymphadenopathy. CHEST: Non-labored respirations and equal bilateral excursions. CARDIOVASCULAR: Palpable 2+ radial pulses. ABDOMEN: Soft. Nondistended. Nontender. MUSCULOSKELETAL: No clubbing or cyanosis. NEUROLOGIC: No focal or lateralizing signs. Cranial nerves II through XII grossly intact. PSYCH: Appropriate affect. Alert and oriented to person, place and time. SKIN: Well perfused. Good skin turgor. ASSESSMENT: 1. Diaphragmatic hiatal hernia, erosive esophagitis and chronic gastritis on EGD 2. Anemia 3. History of AML 4. Left upper lobe lung mass PLAN: -Continue pulmonary workup for lung mass -Recommend colonoscopy for anemia evaluation -Continue supportive care -Continue Regular diet Physician [place] Supervisor note has been reviewed by physician. Signing provider agrees with the documented findings, assessment, and plan of care. Objective - Vital Signs Vital signs: Vital Signs Temp 97.8 F 02/02/22 13:42 Pulse 101 H 02/02/22 14:12 Resp 16 02/02/22 14:12 BP 124/67 02/02/22 14:12 Pulse Ox 92 L 02/02/22 14:12 FiO2 Intake & Output 02/01/22 02/02/22 02/02/22 18:59 06:59 18:59 Intake Total 1200 500 Balance 1200 500 Intake: IV 200 500 Oral 1000 Other: # Voids 4 4 - Labs CBC & Chem 7: 02/01/22 18:07 02/01/22 06:05 Labs: Abnormal Lab Results - Last 24 Hours (Table) 02/01/22 02/01/22 Range/Units 06:05 18:07 WBC 19.95 H 20.8 H (4.50-10.00) X 10*3/uL RBC 2.60 L 2.50 L (4.10-5.20) X 10*6/uL Hgb 8.7 L 8.4 L (12.0-15.0) g/dL Hct 27.8 L 25.9 L (37.2-46.3) % MCV 106.9 H 103.4 H (80.0-97.0) fL MCH 33.5 H (27.0-32.0) pg MCHC 31.3 L (32.0-37.0) g/dL RDW 22.1 H 21.6 H (11.5-14.5) % MPV 12.8 H (9.5-12.2) fL Absolute Nucleated RBC 0.03 H (0.00-0.00) X 10*3/uL Immature Gran # 0.33 H (0.00-0.04) X 10*3/uL Neutrophils # 15.07 H 16.7 H (1.80-7.70) X 10*3/uL Monocytes # 2.63 H 1.6 H (0.20-1.00) X 10*3/uL Eosinophils # 0.02 L (0.04-0.35) X 10*3/uL Basophils # 0.11 H (0.00-0.10) X 10*3/uL NRBC/100 WBC Diff 0.2 H (0.0-0.0) /100 WBCS Macrocytosis Marked A Microbiology - Last 24 Hours (Table) 02/01/22 08:11 Gram Stain - Preliminary Sputum Sputum Culture - Preliminary 01/31/22 19:15 Blood Culture - Preliminary Blood No Growth after 24 hours 01/31/22 19:30 Blood Culture - Preliminary Blood No Growth after 24 hours
[2022-02-02] MEDS: MONTELUKAST 10 MG TAB PO SCH (17:49)
--- NOTE | 2022-02-02 20:50 | PCN ---
PROCEDURE NOTE This is a Pulmonary/Critical Care Procedure Note. PROCEDURES PERFORMED: Bronchoscopy, airway examination, therapeutic lavage, bronchoalveolar lavage, brushes and biopsies, transbronchial, left upper lobe. PREOPERATIVE DIAGNOSIS: Left upper lobe mass. Rule out lung cancer. POSTOPERATIVE DIAGNOSIS: Left upper lobe mass. Rule out lung cancer. OPERATORS: 1. Dr. Person. 2. Dr. Edwards. There were informed consent and universal time-out ANESTHESIA PROVIDED: General anesthesia DESCRIPTION OF PROCEDURE: Once the patient was placed on the anesthesia machine and was intubated, the bronchoscope was inserted through the bronchoscope adapter connected to the endotracheal tube. We did a thorough evaluation of the right lung. Right upper lobe and its 3 segments, right middle lobe and its 2 segments, and the right lower lobe and its 5 segments were normal. On the left side, there was thick mucus noted throughout the left lung. It was suctioned with some difficulty. The left lower lobe and its 4 segments appeared normal. Likewise, the lingula and its 2 segments appeared normal. The left upper lobe proper appeared relatively normal, although there did seem to be some mucosal friability and easy bleeding. There was no dominant mass or tumor. Under fluoroscopic guidance, brushes were performed in the apical posterior segment of the left upper lobe. Next, multiple transbronchial biopsies were performed under fluoroscopic guidance in the left upper lobe, apical posterior segment. Finally, washes were done in the apical posterior segment of the left upper lobe. The patient tolerated the procedure well. There was minimal bleeding. Once there was adequate hemostasis, the bronchoscope was withdrawn. The patient will be recovered. No additional recommendations are made. The patient tolerated the procedure well without difficulty. MMODL / IJN: [id number] /
[2022-02-02] MEDS: AZITHROMYCIN 500 MG TAB PO SCH (21:35)
--- NOTE | 2022-02-02 22:50 | P.PN ---
Progress Note - Text Progress Note Date: 02/02/22 Chief Complaint: Short of breath This is a pleasant 71-year-old patient who is as established herself with her PCP Dr. Bustamante today. 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 Stem cell transplant was carried out. 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 Forward a week patient been having some cold chills cough. No fever no chills. Has recently noticed that she is getting increasing shortly breath and gets easily tired. Denies any weight loss. Appetite is fair. No change in bowel pattern. Had Hx x-ray was admitted for pneumonia. Also for a hemoglobin of 6.9. During that she is symptomatic weak and tired she'll be transfused blood. Admitted with pneumonia, left upper lobe mass. Started on IV ceftriaxone. COPD exacerbation. DuoNeb. Nebulized Pulmicort. Significant anemia. 02/01/2022: Patient seen earlier this morning. Some wheezing and shortness of breath. Later to underwent EGD by Dr. Lam: LA grade B erosive esophagitis, chronic gastritis. Patient will have bronchoscopy tomorrow. Disc ussed with patient 02/02/2022: Patient had bronchoscopy today. Diet. Resting in a recliner. Coloscopy: Thick mucus noted throughout the left lung. It was suctioned. No obvious mass encountered. Brushings were done. Active Medications Acetaminophen (Acetaminophen Tab 325 Mg Tab) 650 mg PO Q6HR PRN PRN Reason: Mild Pain or Fever > 100.5 Last Admin: 02/01/22 02:09 Dose: 650 mg Albuterol/Ipratropium (Ipratropium-Albuterol 3 Ml Neb) 3 ml INHALATION RT-QID [facility] Last Admin: 02/02/22 21:12 Dose: 3 ml Artificial Tears (Artificial Tears-Hypromellose Drops 15 Ml Btl) 1 drops BOTH EYES QID PRN PRN Reason: Dry Eye(s) Budesonide (Budesonide 1 Mg/2 Ml Nebu) 1 mg INHALATION RT-BID [facility] Last Admin: 02/02/22 21:12 Dose: 1 mg Calcium Carbonate/Glycine (Calcium Carbonate 500 Mg Chewable) 1,000 mg PO Q4HR PRN PRN Reason: Dyspepsia Cholecalciferol (Cholecalciferol 25 Mcg (1000 Iu) Tablet) 50 mcg PO DAILY@0800 [facility] Last Admin: 02/02/22 09:21 Dose: 50 mcg Ceftriaxone Sodium 2 gm/ (Sodium Chloride) 50 mls @ 100 mls/hr IVPB [facility]; Protocol Stop: 02/03/22 21:29 Last Admin: 02/02/22 21:35 Dose: 100 mls/hr Sodium Chloride (Saline 0.9%) 1,000 mls @ 100 mls/hr IV .Q10H [facility] Last Admin: 02/02/22 21:46 Dose: 100 mls/hr Lactulose (Lactulose 20 Gm/30 Ml Cup) 20 gm PO DAILY PRN PRN Reason: Constipation Lorazepam (Lorazepam 0.5 Mg Tab) 0.5 mg PO Q6HR PRN PRN Reason: Anxiety Melatonin (Melatonin 5 Mg Tablet) 5 mg PO HS PRN PRN Reason: Insomnia Miscellaneous Information (Pneumonia Protocol Utilized 1 Each Misc) 1 each PO ONCE PRN PRN Reason: Per Protocol Montelukast Sodium (Montelukast 10 Mg Tab) 10 mg PO 1800 [facility] Last Admin: 02/02/22 17:49 Dose: 10 mg Multivitamins/Minerals (Vit A,C & E-Daqawm-Xwpsepme 1 Each Tab) 1 each PO BID @0800,1800 [facility] Last Admin: 02/02/22 17:49 Dose: 1 each Naloxone HCl (Naloxone 0.4 Mg/Ml 1 Ml Vial) 0.2 mg IV Q2M PRN PRN Reason: Opioid Reversal Lifitegrast [Xiidra] (1 Each Droperette) 1 dropper BOTH EYES BID [facility] Last Admin: 02/02/22 21:36 Dose: 1 dropper Ondansetron HCl (Ondansetron 4 Mg/2 Ml Vial) 4 mg IVP Q8HR PRN PRN Reason: Nausea And Vomiting Pantoprazole Sodium (Pantoprazole 40 Mg Tablet) 40 mg PO AC-BRKFST [facility] Last Admin: 02/02/22 09:21 Dose: 40 mg Past medical history to include: COPD, prostatitis, AML with stem cell transplant, 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 Smoked a pack a day for over 35 years stopped about 15 years ago. Alcohol rarely Family history: Reviewed, noncontributory to presentation Physical examination: VITAL SIGNS: 98.3, 96, 16, 1 43 x 57, 96% on 2 L GENERAL: Reclining in bed, awake, tired Clubbing. Loss of muscle mass and subcutaneous fat EYES: Pupils equal. Conjunctiva normal. HEENT: External appearance of nose and ears normal, oral cavity grossly normal. NECK: JVD not raised; masses not palpable. HEART: First and second heart sounds are normal; no edema. LUNGS:[ Respiratory rate increased, diminished breath sounds , expiration / wheezing some scattered crackles. ABDOMEN: Soft, nontender, liver spleen not palpable, no masses palpable. PSYCH: Tired. Answering questions appropriately. MUSCULOSKELETAL:No Clubbing/cyanosis;muscles-grossly intact, OA INVESTIGATIONS, reviewed in the clinical context: CT chest with contrast: Left upper lobe mass felt to reflect malignancy. Basilar atelectasis/infiltrates. 02/01/2022: White count 20.7 hemoglobin 9.5 platelets 414 BUN 27 creatinine 1.07 Iron 59 TIBC 161 transferrin 115 ferritin 2866 B12 437 procalcitonin 0.45 ESS 0.477 White count 18.9 hemoglobin 6.9 MCV 108.9 platelets 433 sodium 1:30/83.6 BUN 31 and creatinine 1.10 Stool occult blood: Negative COVID 19 PCR: Not detected EKG tracing personally reviewed by me-normal sinus rhythm. Nonspecific T-wave changes. Chest x-ray film personally reviewed by me-masslike consolidation left upper lobe. Coarse markings. Hyperinflation Assessment and plan: -Suspect underlying pneumonia left upper lobe, gram-negative organism suspected IV ceftriaxone. -Concern for underlying malignancy left upper lobe in a previous smoker. Computed tomography scan chest noted. Bronchoscopy done on February 02. Brushings. -Acute COPD exacerbation in an ex-smoker: Slow to respond DuoNeb, Pulmicort -Esophagitis, gastritis PPI -Mild protein calorie malnutrition Ensure IV ceftriaxone. DuoNeb. Nebulized Pulmicort. Bronchoscopy done today.
[2022-02-03 04:00] LABS: Appearance,BF Bloody
[2022-02-03] MEDS: PANTOPRAZOLE 40 MG TABLET PO SCH (06:43)
[2022-02-03] MEDS: SODIUM CHLORIDE 0.9% 1,000 ML IV SCH ×2 (06:44→16:44)
[2022-02-03] MEDS: BUDESONIDE 1 MG/2 ML NEBU INHALATION SCH ×2 (08:49→21:10)
[2022-02-03] MEDS: IPRATROPIUM-ALBUTEROL 3 ML NEB INHALATION SCH ×4 (08:49→21:10)
[2022-02-03] MEDS: CHOLECALCIFEROL 25 MCG (1000 IU) TABLET PO SCH (10:23)
[2022-02-03] MEDS: Lifitegrast [Xiidra] 1 EACH Droperette BOTH EYES SCH ×2 (10:26→21:01)
[2022-02-03] MEDS: VIT A,C & E-LUTEIN-MINERALS 1 EACH TAB PO SCH ×2 (10:26→16:43)
--- NOTE | 2022-02-03 11:01 | P.PN ---
Progress Note - Text Progress Note Date: 02/03/22 Patient Gertrudis stable. Her hemoglobin is 8.4. It was 9.5 yesterday. She denies any rectal bleeding. On exam vital signs are stable. Abdomen soft. Patient scheduled for colonoscopy on Saturday.
--- NOTE | 2022-02-03 13:44 | P.PN ---
Subjective Progress Note Date: 02/03/22 71-year-old female who presents to the emergency department on January 31, brought in by EMS, because of shortness of breath. She apparently has had a 10 day course of increasing shortness of breath, cough, and occasional phlegm production. She apparently was being treated by her primary care physician for pneumonia. Because she was not getting better, and actually getting worse, she was sent to the emergency room to be evaluated. The patient had a chest x-ray which showed a infiltrate/mass in the left upper lobe. CAT scan suggested mask, and likely we are dealing with bronchogenic carcinoma. The patient was a heavy smoker for a number of years, quit in 2006. White count 20.7, hemoglobin 9.5, hematocrit 27.5, and platelet count normal. Her initial hemoglobin was 6.9. Sodium 137, potassium 3.8, chlorides 105, CO2 27, BUN 27, and creatinine 1.07. Pro-calcitonin level was 0.45. TSH was normal. Testing for coronavirus was negative. Chest x-ray shows a mass in the left upper lobe. Computed tomography scan shows a left upper lobe mass, felt to reflect malignancy until proven otherwise. Progress note dated 02/02/2022 in follow-up on the regular medical floor. He is currently sitting up in bed. Awake and alert in no acute distress. No worsening shortness of breath, cough or congestion.maintaining O2 saturation the mid 90s on 4 L/m per nasal cannula. Afebrile. She did undergo EGD yesterday that revealed diaphragmatic hiatal hernia. No active bleeding. Current hemoglobin 8.4. The plan is for bronchoscopy and biopsy of the left upper lobe mass today. Patient is seen today 02/03/2022 in follow-up on the regular medical floor. She is currently sitting up in a chair at the bedside. Awake and alert in no acute distress. Maintaining O2 saturations in the 90s on 2 L/m per nasal cannula. She did undergo bronchoscopy with biopsies yesterday. Pathology pending. She's normal saline at 100 ML's per hour. Slightly febrile with a temperature of 99.9. Blood cultures reveal no growth. Sputum culture reveals no growth. She is continued on Augmentin along with bronchodilators. Objective - Vital Signs Vital signs: Vital Signs Temp 99.9 F H 02/03/22 08:00 Pulse 86 02/03/22 12:26 Resp 18 02/03/22 08:00 BP 116/66 02/03/22 08:00 Pulse Ox 94 L 02/03/22 08:57 FiO2 Intake & Output 02/02/22 02/03/22 02/03/22 18:59 06:59 18:59 Intake Total 500 Balance 500 Intake: IV 500 Other: Voiding Method Toilet Toilet # Voids 6 5 - Exam GENERAL EXAM: Alert, 71-year-old female, on 2 L nasal cannula, comfortable in no apparent distress. HEAD: Normocephalic. EYES: Normal reaction of pupils, equal size. NOSE: Clear with pink turbinates. THROAT: No erythema or exudates. NECK: No masses, no JVD. CHEST: No chest wall deformity. LUNGS: Equal air entry with few scattered rhonchi. CVS: S1 and S2 normal with no audible murmur, regular rhythm. ABDOMEN: No hepatosplenomegaly, normal bowel sounds, no guarding or rigidity. SPINE: No scoliosis or deformity SKIN: No rashes CENTRAL NERVOUS SYSTEM: No focal deficits, tone is normal in all 4 extremities. EXTREMITIES: There is no peripheral edema. No clubbing, no cyanosis. Peripheral pulses are intact. - Labs CBC & Chem 7: 02/01/22 18:07 02/01/22 06:05 Labs: Microbiology - Last 24 Hours (Table) 02/01/22 08:11 Gram Stain - Final Sputum Sputum Culture - Final 01/31/22 19:30 Blood Culture - Preliminary Blood No Growth after 48 hours 01/31/22 19:15 Blood Culture - Preliminary Blood No Growth after 48 hours Assessment and Plan Assessment: Shortness of breath, likely related to underlying COPD exacerbation, from previous heavy tobacco use. 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 She did undergo bronchoscopy with biopsies on 02/02/2022. Pathology pending. Previous history of tobacco use. Anemia, status post EGD, February 01, with findings of erosive gastritis, hiatal hernia, and diaphragmatic hiatus. Plan: The patient was seen and evaluated Medications reviewed Currently stable and on 2 L nasal cannula Pathology pending We'll continue to follow I have personally seen and examined the patient, performed the documentation and the assessment and plan as written. Number of minutes spent on the visit: 10.
--- NOTE | 2022-02-03 16:12 | P.PN ---
Progress Note - Text Progress Note Date: 02/03/22 Chief Complaint: Short of breath This is a pleasant 71-year-old patient who is as established herself with her PCP Dr. Bustamante today. 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 Stem cell transplant was carried out. 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 Forward a week patient been having some cold chills cough. No fever no chills. Has recently noticed that she is getting increasing shortly breath and gets easily tired. Denies any weight loss. Appetite is fair. No change in bowel pattern. Had Hx x-ray was admitted for pneumonia. Also for a hemoglobin of 6.9. During that she is symptomatic weak and tired she'll be transfused blood. Admitted with pneumonia, left upper lobe mass. Started on IV ceftriaxone. COPD exacerbation. DuoNeb. Nebulized Pulmicort. Significant anemia. 02/01/2022: Patient seen earlier this morning. Some wheezing and shortness of breath. Later to underwent EGD by Dr. Lam: LA grade B erosive esophagitis, chronic gastritis. Patient will have bronchoscopy tomorrow. Disc ussed with patient 02/02/2022: Patient had bronchoscopy today. Diet. Resting in a recliner. Bronchoscopy: Thick mucus noted throughout the left lung. It was suctioned. No obvious mass encountered. Brushings were done. 02/03/2022: Up in a chair. Short. Wheezing. Cough. Cultures pending. Discussed with patient. Active Medications Acetaminophen (Acetaminophen Tab 325 Mg Tab) 650 mg PO Q6HR PRN PRN Reason: Mild Pain or Fever > 100.5 Last Admin: 02/01/22 02:09 Dose: 650 mg Albuterol/Ipratropium (Ipratropium-Albuterol 3 Ml Neb) 3 ml INHALATION RT-QID [facility] Last Admin: 02/03/22 15:54 Dose: 3 ml Amoxicillin/Clavulanate Potassium (Amoxic-Pot Clav 875-125mg 1 Each Tab) 1 each PO Q12HR [facility]; Protocol Stop: 02/10/22 09:01 Artificial Tears (Artificial Tears-Hypromellose Drops 15 Ml Btl) 1 drops BOTH EYES QID PRN PRN Reason: Dry Eye(s) Budesonide (Budesonide 1 Mg/2 Ml Nebu) 1 mg INHALATION RT-BID [facility] Last Admin: 02/03/22 08:49 Dose: 1 mg Calcium Carbonate/Glycine (Calcium Carbonate 500 Mg Chewable) 1,000 mg PO Q4HR PRN PRN Reason: Dyspepsia Cholecalciferol (Cholecalciferol 25 Mcg (1000 Iu) Tablet) 50 mcg PO DAILY@0800 [facility] Last Admin: 02/03/22 10:23 Dose: 50 mcg Sodium Chloride (Saline 0.9%) 1,000 mls @ 100 mls/hr IV .Q10H [facility] Last Admin: 02/03/22 06:44 Dose: 100 mls/hr Lactulose (Lactulose 20 Gm/30 Ml Cup) 20 gm PO DAILY PRN PRN Reason: Constipation Lactulose (Lactulose 20 Gm/30 Ml Cup) 20 gm PO ONCE ONE Stop: 02/04/22 08:01 Lorazepam (Lorazepam 0.5 Mg Tab) 0.5 mg PO Q6HR PRN PRN Reason: Anxiety Magnesium Hydroxide (Magnesium Hydroxide 2,400 Mg/10 Ml Cup) 2,400 mg PO ONCE ONE Stop: 02/04/22 08:01 Melatonin (Melatonin 5 Mg Tablet) 5 mg PO HS PRN PRN Reason: Insomnia Miscellaneous Information (Pneumonia Protocol Utilized 1 Each Misc) 1 each PO ONCE PRN PRN Reason: Per Protocol Montelukast Sodium (Montelukast 10 Mg Tab) 10 mg PO 1800 [facility] Last Admin: 02/02/22 17:49 Dose: 10 mg Multivitamins/Minerals (Vit A,C & A-Kfnoyn-Pealtutw 1 Each Tab) 1 each PO BID@0800,1800 [facility] Last Admin: 02/03/22 10:26 Dose: 1 each Naloxone HCl (Naloxone 0.4 Mg/Ml 1 Ml Vial) 0.2 mg IV Q2M PRN PRN Reason: Opioid Reversal Lifitegrast [Xiidra] (1 Each Droperette) 1 dropper BOTH EYES BID [facility] Last Admin: 02/03/22 10:26 Dose: 1 dropper Ondansetron HCl (Ondansetron 4 Mg/2 Ml Vial) 4 mg IVP Q8HR PRN PRN Reason: Nausea And Vomiting Pantoprazole Sodium (Pantoprazole 40 Mg Tablet) 40 mg PO AC-BRKFST [facility] Last Admin: 02/03/22 06:43 Dose: 40 mg Polyethylene Glycol/Electrolytes (Peg 3350 (420 Gm/Btl) + Lytes 4,000 Ml Bottle) 2,000 ml PO ONCE ONE Stop: 02/04/22 08:01 Past medical history to include: COPD, prostatitis, AML with stem cell transplant, 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 Smoked a pack a day for over 35 years stopped about 15 years ago. Alcohol rarely Family history: Reviewed, noncontributory to presentation Physical examination: VITAL SIGNS: 98.8, 68, 17, 92/57, 97% room air GENERAL: Up in a chair Clubbing. Loss of muscle mass and subcutaneous fat EYES: Pupils equal. Conjunctiva normal. HEENT: External appearance of nose and ears normal, oral cavity grossly normal. NECK: JVD not raised; masses not palpable. HEART: First and second heart sounds are normal; no edema. LUNGS:[ Respiratory rate increased, diminished breath sounds , expiration / wheezing some scattered crackles. ABDOMEN: Soft, nontender, liver spleen not palpable, no masses palpable. PSYCH: Tired. Answering questions appropriately. MUSCULOSKELETAL:No Clubbing/cyanosis;muscles-grossly intact, OA INVESTIGATIONS, reviewed in the clinical context: CT chest with contrast: Left upper lobe mass felt to reflect malignancy. Basilar atelectasis/infiltrates. 02/01/2022: White count 20.7 hemoglobin 9.5 platelets 414 BUN 27 creatinine 1.07 Iron 59 TIBC 161 transferrin 115 ferritin 2866 B12 437 procalcitonin 0.45 ESS 0.477 White count 18.9 hemoglobin 6.9 MCV 108.9 platelets 433 sodium 1:30/83.6 BUN 31 and creatinine 1.10 Stool occult blood: Negative COVID 19 PCR: Not detected EKG tracing personally reviewed by me-normal sinus rhythm. Nonspecific T-wave changes. Chest x-ray film personally reviewed by me-masslike consolidation left upper lobe. Coarse markings. Hyperinflation Assessment and plan: -Suspect underlying pneumonia left upper lobe, gram-negative organism suspected IV ceftriaxone. -Concern for underlying malignancy left upper lobe in a previous smoker. Computed tomography scan chest noted. Bronchoscopy done on February 02. Brushings. -Acute COPD exacerbation in an ex-smoker: Slow to respond DuoNeb, Pulmicort -Esophagitis, gastritis PPI -Mild protein calorie malnutrition Ensure IV ceftriaxone. DuoNeb. Nebulized Pulmicort. Pending culture results. Discussed with patient. Continue current medications.
[2022-02-03] MEDS: MONTELUKAST 10 MG TAB PO SCH (16:43)
[2022-02-03] MEDS: AMOXIC-POT CLAV 875-125MG 1 EACH TAB PO SCH (21:01)
[2022-02-04] MEDS: SODIUM CHLORIDE 0.9% 1,000 ML IV SCH ×2 (05:08→12:36)
[2022-02-04] MEDS: PANTOPRAZOLE 40 MG TABLET PO SCH (06:31)
[2022-02-04] MEDS ORDERED: LACTULOSE 20 GM/30 ML CUP PO ONE (08:00)
[2022-02-04] MEDS ORDERED: MAGNESIUM HYDROXIDE 2,400 MG/10 ML CUP PO ONE (08:00)
[2022-02-04] MEDS ORDERED: PEG 3350 (420 GM/BTL) + LYTES 4,000 ML BOTTLE PO ONE (08:00)
[2022-02-04] MEDS: BUDESONIDE 1 MG/2 ML NEBU INHALATION SCH ×2 (08:19→21:05)
[2022-02-04] MEDS: IPRATROPIUM-ALBUTEROL 3 ML NEB INHALATION SCH ×4 (08:19→21:05)
[2022-02-04] MEDS: Lifitegrast [Xiidra] 1 EACH Droperette BOTH EYES SCH ×2 (08:34→21:00)
[2022-02-04] MEDS: CHOLECALCIFEROL 25 MCG (1000 IU) TABLET PO SCH (08:35)
[2022-02-04] MEDS: AMOXIC-POT CLAV 875-125MG 1 EACH TAB PO SCH ×2 (08:35→20:59)
[2022-02-04] MEDS: VIT A,C & E-LUTEIN-MINERALS 1 EACH TAB PO SCH ×2 (08:35→17:09)
--- NOTE | 2022-02-04 10:52 | P.PN ---
Progress Note - Text Progress Note Date: 02/04/22 Patient's sleeping in her bed. She denies any serious complaints. On exam vital signs are stable. Abdomen soft. He will was a 0.4. Patient scheduled for colonoscopy Dr. Lam tomorrow.
--- NOTE | 2022-02-04 13:14 | P.PN ---
Subjective Progress Note Date: 02/04/22 Principal diagnosis: Shortness of breath/abnormal chest x-ray. 71-year-old female who presents to the emergency department on January 31, brought in by EMS, because of shortness of breath. She apparently has had a 10 day course of increasing shortness of breath, cough, and occasional phlegm production. She apparently was being treated by her primary care physician for pneumonia. Because she was not getting better, and actually getting worse, she was sent to the emergency room to be evaluated. The patient had a chest x-ray which showed a infiltrate/mass in the left upper lobe. CAT scan suggested mask, and likely we are dealing with bronchogenic carcinoma. The patient was a heavy smoker for a number of years, quit in 2006. White count 20.7, hemoglobin 9.5, hematocrit 27.5, and platelet count normal. Her initial hemoglobin was 6.9. Sodium 137, potassium 3.8, chlorides 105, CO2 27, BUN 27, and creatinine 1.07. Pro-calcitonin level was 0.45. TSH was normal. Testing for coronavirus was negative. Chest x-ray shows a mass in the left upper lobe. Computed tomography scan shows a left upper lobe mass, felt to reflect malignancy until proven otherwise. Progress note dated 02/02/2022 in follow-up on the regular medical floor. He is currently sitting up in bed. Awake and alert in no acute distress. No worsening shortness of breath, cough or congestion.maintaining O2 saturation the mid 90s on 4 L/m per nasal cannula. Afebrile. She did undergo EGD yesterday that revealed diaphragmatic hiatal hernia. No active bleeding. Current hemoglobin 8.4. The plan is for bronchoscopy and biopsy of the left upper lobe mass today. Patient is seen today 02/03/2022 in follow-up on the regular medical floor. She is currently sitting up in a chair at the bedside. Awake and alert in no acute distress. Maintaining O2 saturations in the 90s on 2 L/m per nasal cannula. She did undergo bronchoscopy with biopsies yesterday. Pathology pending. She's normal saline at 100 ML's per hour. Slightly febrile with a temperature of 99.9. Blood cultures reveal no growth. Sputum culture reveals no growth. She is continued on Augmentin along with bronchodilators. Progress note dated 02/04/2022. Currently, the patient is doing reasonably well. She is on 2 L of oxygen. She's getting saline at 100 mL an hour. She is scheduled for colonoscopy tomorrow. After colonoscopy, and my opinion, she could be discharged home, and follow up with me later this week to get the results of her bronchoscopy, and biopsies, that were done on Saturday. She has a mass in the left upper lobe. She is a smoker, and we suspect bronchogenic carcinoma. No new labs are noted. Objective - Vital Signs Vital signs: Vital Signs Temp 98.4 F 02/04/22 07:55 Pulse 100 02/04/22 12:46 Resp 15 02/04/22 07:55 BP 143/74 02/04/22 07:55 Pulse Ox 90 L 02/04/22 08:22 FiO2 Intake & Output 02/03/22 02/04/22 02/04/22 18:59 06:59 18:59 Intake Total 1700 Output Total 1 Balance -1 1700 Intake: Intake, IV Titration 1200 Amount Sodium Chloride 0.9% 1, 1200 000 ml @ 100 mls/hr IV . Q10H [facility] Rx#:[id number] Oral 500 Output: Stool 1 Other: Voiding Method Toilet Toilet # Voids 4 4 # Bowel Movements 1 1 - Exam No acute distress, oriented 3. 2 L saturation is 96%. HEENT examination is grossly unremarkable. Mucous membranes are moist. No oral lesions. Neck supple. Full range of motion. No adenopathy thyromegaly or neck vein distention. Cardiovascular examination reveals regular rhythm rate. S1-S2 normal. No S3 or S4. No discernible murmur noted. Heart rate 92 bpm. Lungs reveal mild scattered rhonchi. No wheezes. No crackles. Breath sounds equal bilaterally. Abdomen soft bowel sounds are heard. No masses or tenderness. Extremities are intact. No cyanosis clubbing or edema. Skin is without rash or lesion. Neurologic examination is brief but nonfocal. - Labs CBC & Chem 7: 02/01/22 18:07 02/01/22 06:05 Labs: Microbiology - Last 24 Hours (Table) 02/02/22 13:30 Gram Stain - Preliminary Bronchoalviolar Lavage - Left Bronchial Washings Culture - Preliminary 01/31/22 19:15 Blood Culture - Preliminary Blood No Growth after 72 hours 01/31/22 19:30 Blood Culture - Preliminary Blood No Growth after 72 hours 02/01/22 08:11 Gram Stain - Final Sputum Sputum Culture - Final Assessment and Plan Assessment: Shortness of breath, likely related to underlying COPD exacerbation, from previous heavy tobacco use. 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 Previous history of tobacco use. Anemia, status post EGD, February 01, with findings of erosive gastritis, hiatal hernia, and diaphragmatic hiatus. Plan: Plan dated 02/01/2022. The patient will be maintained nothing by mouth after midnight, and be scheduled for bronchoscopy tomorrow. We explained to the patient that this lesion may represent bronchogenic carcinoma. The patient's currently on antibiotics in the form of azithromycin and ceftriaxone. She is also receiving breathing treatments in the form of albuterol sulfate and ipratropium bromide. Additional recommendations and suggestions are forthcoming. Prognosis is guarded. I will DC the Lovenox. Plan dated 02/04/2022. The patient had a bronchoscopy brushings, transbronchial biopsies, and BAL, and the left upper lobe on Saturday. Results are currently pending. The patient is scheduled to have a colonoscopy tomorrow. Afterwards, she could be discharged, and follow-up with me in the office on . Additional recommendations and suggestions are forthcoming. She is on 2 L. She continues on breathing treatments, and Augmentin. Prognosis is guarded. Time with Patient: Less than 30
--- NOTE | 2022-02-04 16:06 | P.PN ---
Progress Note - Text Progress Note Date: 02/04/22 Chief Complaint: Short of breath This is a pleasant 71-year-old patient who is as established herself with her PCP Dr. Bustamante today. 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 Stem cell transplant was carried out. 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 Forward a week patient been having some cold chills cough. No fever no chills. Has recently noticed that she is getting increasing shortly breath and gets easily tired. Denies any weight loss. Appetite is fair. No change in bowel pattern. Had Hx x-ray was admitted for pneumonia. Also for a hemoglobin of 6.9. During that she is symptomatic weak and tired she'll be transfused blood. Admitted with pneumonia, left upper lobe mass. Started on IV ceftriaxone. COPD exacerbation. DuoNeb. Nebulized Pulmicort. Significant anemia. 02/01/2022: Patient seen earlier this morning. Some wheezing and shortness of breath. Later to underwent EGD by Dr. Lam: LA grade B erosive esophagitis, chronic gastritis. Patient will have bronchoscopy tomorrow. Disc ussed with patient 02/02/2022: Patient had bronchoscopy today. Diet. Resting in a recliner. Bronchoscopy: Thick mucus noted throughout the left lung. It was suctioned. No obvious mass encountered. Brushings were done. 02/03/2022: Up in a chair. Short. Wheezing. Cough. Cultures pending. Discussed with patient. 02/04/2022: Up in a recliner. Breathing better. Less wheezing.. Eating some. Bronchial wash is negative.. Cytology pending. Patient for colonoscopy per Dr. Lam tomorrow. Active Medications Acetaminophen (Acetaminophen Tab 325 Mg Tab) 650 mg PO Q6HR PRN PRN Reason: Mild Pain or Fever > 100.5 Last Admin: 02/01/22 02:09 Dose: 650 mg Albuterol/Ipratropium (Ipratropium-Albuterol 3 Ml Neb) 3 ml INHALATION RT-QID [facility] Last Admin: 02/04/22 12:29 Dose: 3 ml Amoxicillin/Clavulanate Potassium (Amoxic-Pot Clav 875-125mg 1 Each Tab) 1 each PO Q12HR [facility]; Protocol Stop: 02/10/22 09:01 Last Admin: 02/04/22 08:35 Dose: 1 each Artificial Tears (Artificial Tears-Hypromellose Drops 15 Ml Btl) 1 drops BOTH EYES QID PRN PRN Reason: Dry Eye(s) Budesonide (Budesonide 1 Mg/2 Ml Nebu) 1 mg INHALATION RT-BID [facility] Last Admin: 02/04/22 08:19 Dose: 1 mg Calcium Carbonate/Glycine (Calcium Carbonate 500 Mg Chewable) 1,000 mg PO Q4HR PRN PRN Reason: Dyspepsia Cholecalciferol (Cholecalciferol 25 Mcg (1000 Iu) Tablet) 50 mcg PO DAILY@0800 [facility] Last Admin: 02/04/22 08:35 Dose: 50 mcg Sodium Chloride (Saline 0.9%) 1,000 mls @ 100 mls/hr IV .Q10H [facility] Last Admin: 02/04/22 12:36 Dose: 100 mls/hr Lactulose (Lactulose 20 Gm/30 Ml Cup) 20 gm PO DAILY PRN PRN Reason: Constipation Lorazepam (Lorazepam 0.5 Mg Tab) 0.5 mg PO Q6HR PRN PRN Reason: Anxiety Melatonin (Melatonin 5 Mg Tablet) 5 mg PO HS PRN PRN Reason: Insomnia Miscellaneous Information (Pneumonia Protocol Utilized 1 Each Misc) 1 each PO ONCE PRN PRN Reason: Per Protocol Montelukast Sodium (Montelukast 10 Mg Tab) 10 mg PO 1800 [facility] Last Admin: 02/03/22 16:43 Dose: 10 mg Multivitamins/Minerals (Vit A,C & J-Jbnkkb-Wbcvyizk 1 Each Tab) 1 each PO BID@0800,1800 [facility] Last Admin: 02/04/22 08:35 Dose: 1 each Naloxone HCl (Naloxone 0.4 Mg/Ml 1 Ml Vial) 0.2 mg IV Q2M PRN PRN Reason: Opioid Reversal Lifitegrast [Xiidra] (1 Each Droperette) 1 dropper BOTH EYES BID [facility] Last Admin: 02/04/22 08:34 Dose: 1 dropper Ondansetron HCl (Ondansetron 4 Mg/2 Ml Vial) 4 mg IVP Q8HR PRN PRN Reason: Nausea And Vomiting Pantoprazole Sodium (Pantoprazole 40 Mg Tablet) 40 mg PO AC-BRKFST [facility] Last Admin: 02/04/22 06:31 Dose: 40 mg Past medical history to include: COPD, prostatitis, AML with stem cell transplant, 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 Smoked a pack a day for over 35 years stopped about 15 years ago. Alcohol rarely Family history: Reviewed, noncontributory to presentation Physical examination: VITAL SIGNS: 98.7, 98, 16, 129/60, 97% on 3 L GENERAL: Up in a recliner. Clubbing. Loss of muscle mass and subcutaneous fat EYES: Pupils equal. Conjunctiva normal. HEENT: External appearance of nose and ears normal, oral cavity grossly normal. NECK: JVD not raised; masses not palpable. HEART: First and second heart sounds are normal; no edema. LUNGS:[ Respiratory rate increased, diminished breath sounds , decreased wheezing, occasional crackles. ABDOMEN: Soft, nontender, liver spleen not palpable, no masses palpable. PSYCH: Tired. Answering questions appropriately. MUSCULOSKELETAL:No Clubbing/cyanosis;muscles-grossly intact, OA INVESTIGATIONS, reviewed in the clinical context: CT chest with contrast: Left upper lobe mass felt to reflect malignancy. Basilar atelectasis/infiltrates. 02/01/2022: White count 20.7 hemoglobin 9.5 platelets 414 BUN 27 creatinine 1.07 Iron 59 TIBC 161 transferrin 115 ferritin 2866 B12 437 procalcitonin 0.45 ESS 0.477 White count 18.9 hemoglobin 6.9 MCV 108.9 platelets 433 sodium 1:30/83.6 BUN 31 and creatinine 1.10 Stool occult blood: Negative COVID 19 PCR: Not detected EKG tracing personally reviewed by me-normal sinus rhythm. Nonspecific T-wave changes. Chest x-ray film personally reviewed by me-masslike consolidation left upper lobe. Coarse markings. Hyperinflation Assessment and plan: -Suspect underlying pneumonia left upper lobe, gram-negative organism suspected IV ceftriaxone changed to Augmentin -Concern for underlying malignancy left upper lobe in a previous smoker. Computed tomography scan chest noted. Bronchoscopy done on February 02. Brushings. -Acute COPD exacerbation in an ex-smoker: DuoNeb, Pulmicort -Esophagitis, gastritis PPI -Mild protein calorie malnutrition Ensure IV ceftriaxone changed to Augmentin. DuoNeb. Nebulized Pulmicort. Colonoscopy tomorrow. Can be discharged after that..
[2022-02-04] MEDS: MONTELUKAST 10 MG TAB PO SCH (17:09)
[2022-02-05] MEDS: SODIUM CHLORIDE 0.9% 1,000 ML IV SCH ×2 (02:31→08:13)
[2022-02-05] MEDS: IPRATROPIUM-ALBUTEROL 3 ML NEB INHALATION SCH ×2 (07:23→10:57)
[2022-02-05] MEDS: BUDESONIDE 1 MG/2 ML NEBU INHALATION SCH (07:23)
[2022-02-05] MEDS: PANTOPRAZOLE 40 MG TABLET PO SCH (08:12)
[2022-02-05] MEDS: Lifitegrast [Xiidra] 1 EACH Droperette BOTH EYES SCH (08:12)
[2022-02-05] MEDS: CHOLECALCIFEROL 25 MCG (1000 IU) TABLET PO SCH (08:12)
[2022-02-05] MEDS: AMOXIC-POT CLAV 875-125MG 1 EACH TAB PO SCH (08:12)
[2022-02-05] MEDS: VIT A,C & E-LUTEIN-MINERALS 1 EACH TAB PO SCH (08:12)
[2022-02-05] MEDS ORDERED: SODIUM CHLORIDE 0.9% 500 ML 500 ML IV ONE (10:44)
[2022-02-05] MEDS ORDERED: PROPOFOL 10 MG/ML 20 ML VIAL IV ONE (10:45)
--- NOTE | 2022-02-05 11:14 | P.PCN ---
Date of Procedure: 02/05/22 Description of Procedure: PREOPERATIVE DIAGNOSIS: Acute blood loss anemia status post transfusion History of AML POSTOPERATIVE DIAGNOSIS: Acute blood loss anemia status post transfusion History of AML OPERATION: Colonoscopy to the cecum, ileocecal valve and appendiceal orifice SURGEON: Emilia Ferrer MD. ANESTHESIA: MAC. INDICATIONS: The patient is a 71-year-old female who presents with anemia. Benefits and risks were described and informed consent was obtained. DESCRIPTION OF PROCEDURE: The patient had undergone attempted Golytely prep 2 L. The patient had been brought into the operating room and laid in the left lateral decubitus position. After adequate intravenous sedation, the rectum was examined with 2% lidocaine jelly. Large nonreducible grade 3 internal hemorrhoids with ulceration, recent inflammation. An Olympus colonoscope was gently advanced to the cecum with clear visualization of the ileocecal valve including appendiceal orifice. The prep was good. No sigmoid diverticulosis was encountered without active bleeding. No active colonic bleeding was found. No intraluminal masses were identified within the colon. No colonic polyps were found. No evidence of focal colitis was found. Retroflexion of the scope demonstrated grade 4 internal hemorrhoids with recent inflammation. The colon was desufflated. The patient had tolerated the procedure well. Withdrawal time was over 6 minutes. FINDINGS: Aronchick preparation quality scale 2 (1-5) Internal hemorrhoids, grade 3 No thrombosed hemorrhoid identified. No arteriovenous malformations. No adenomatous polyps. No focal colitis. RECOMMENDATIONS: 1. Diet as tolerated 2. Lower endoscopy as needed Plan - Discharge Summary Discharge Rx Participant: Yes New Discharge Prescriptions: No Action Budesonide/Formoterol Fumarate [Symbicort 160-4.5 Mcg Inhaler] 2 puff INHALATION RT-BID Albuterol Nebulized [Ventolin Nebulized] 2.5 mg INHALATION RT-QID PRN PRN Reason: Shortness Of Breath Montelukast [Singulair] 10 mg PO HS Vit C/E/Zn/Coppr/Lutein/Zeaxan [Preservision Areds 2 Softgel] 1 cap PO BID Propylene Glycol/Peg 400/Pf [Systane 0.3-0.4% Eye Drop] 1 dropper BOTH EYES QID PRN PRN Reason: Dry Eye(S) Lifitegrast [Xiidra] 1 dropper BOTH EYES BID Cholecalciferol [Vitamin D3 (25 Mcg = 1000 Iu)] 50 mcg PO DAILY Melatonin 5 mg PO HS PRN PRN Reason: Insomnia Discharge Medication List Albuterol Nebulized [Ventolin Nebulized] 2.5 mg INHALATION RT-QID PRN 01/31/22 [History] Budesonide/Formoterol Fumarate [Symbicort 160-4.5 Mcg Inhaler] 2 puff INHALATION RT-BID 01/31/22 [History] Cholecalciferol [Vitamin D3 (25 Mcg = 1000 Iu)] 50 mcg PO DAILY 01/31/22 [History] Montelukast [Singulair] 10 mg PO HS 01/31/22 [History] Vit C/E/Zn/Coppr/Lutein/Zeaxan [Preservision Areds 2 Softgel] 1 cap PO BID 01/31/22 [History] Lifitegrast [Xiidra] 1 dropper BOTH EYES BID 02/01/22 [History] Melatonin 5 mg PO HS PRN 02/01/22 [History] Propylene Glycol/Peg 400/Pf [Systane 0.3-0.4% Eye Drop] 1 dropper BOTH EYES QID PRN 02/01/22 [History] Follow up Appointment(s)/Referral(s): Hitesh Bustamante DO [Primary Care Provider] - 1-2 days Emilia Ferrer MD [STAFF PHYSICIAN] - As Needed
[2022-02-05 14:41] VITALS: BP 155/75; PULSE 102; RESP 17; TEMP 98.1
--- NOTE | 2022-02-05 18:25 | P.DS ---
Providers Date of admission: 01/31/22 20:20 Expected date of discharge: 02/05/22 Attending physician: Christiano Rose Consults: 01/31/22 20:26 Consult Physician Urgent Consulting Provider: Emilia Ferrer Consult Reason/Comments: Anemia Do you want consulting provider notified?: Yes 01/31/22 22:18 Consult Physician Routine Consulting Provider: Khadar Person Consult Reason/Comments: Possible lung mass Do you want consulting provider notified?: Yes Primary care physician: [facility] Course: Chief Complaint: Short of breath This is a pleasant 71-year-old patient who is as established herself with her PCP Dr. Bustamante today. 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 Stem cell transplant was carried out. 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 Forward a week patient been having some cold chills cough. No fever no chills. Has recently noticed that she is getting increasing shortly breath and gets easily tired. Denies any weight loss. Appetite is fair. No change in bowel pattern. Had Hx x-ray was admitted for pneumonia. Also for a hemoglobin of 6.9. During that she is symptomatic weak and tired she'll be transfused blood. Admitted with pneumonia, left upper lobe mass. Started on IV ceftriaxone. COPD exacerbation. DuoNeb. Nebulized Pulmicort. Significant anemia. 02/01/2022: Patient seen earlier this morning. Some wheezing and shortness of breath. Later to underwent EGD by Dr. Lam: LA grade B erosive esophagitis, chronic gastritis. Patient will have bronchoscopy tomorrow. Discussed with patient 02/02/2022: Patient had bronchoscopy today. Diet. Resting in a recliner. Bronchoscopy: Thick mucus noted throughout the left lung. It was suctioned. No obvious mass encountered. Brushings were done. 02/03/2022: Up in a chair. Short. Wheezing. Cough. Cultures pending. Discussed with patient. 02/04/2022: Up in a recliner. Breathing better. Less wheezing.. Eating some. Bronchial wash is negative.. Cytology pending. Patient for colonoscopy per Dr. Lam tomorrow. 02/05/2022: Patient be discharged to oxygen. Had colonoscopic today.: Internal hemorrhoids grade 3. Patient follow-up with pulmonary as outpatient. Questions answered. Discussed with patient case manager. Discussed with patient. 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 Smoked a pack a day for over 35 years stopped about 15 years ago. Alcohol rarely Family history: Reviewed, noncontributory to presentation Physical examination: VITAL SIGNS: 98.1, 1 or 2, 17, 1 55 x 75, 94% on 2 L. [80% with activity] GENERAL: Up in a recliner. Clubbing. Loss of muscle mass and subcutaneous fat EYES: Pupils equal. Conjunctiva normal. HEENT: External appearance of nose and ears normal, oral cavity grossly normal. NECK: JVD not raised; masses not palpable. HEART: First and second heart sounds are normal; no edema. LUNGS:[ Respiratory rate increased, diminished breath sounds , decreased wheezing, occasional crackles. ABDOMEN: Soft, nontender, liver spleen not palpable, no masses palpable. PSYCH: Tired. Answering questions appropriately. MUSCULOSKELETAL:No Clubbing/cyanosis;muscles-grossly intact, OA INVESTIGATIONS, reviewed in the clinical context: CT chest with contrast: Left upper lobe mass felt to reflect malignancy. Basilar atelectasis/infiltrates. 02/01/2022: White count 20.7 hemoglobin 9.5 platelets 414 BUN 27 creatinine 1.07 Iron 59 TIBC 161 transferrin 115 ferritin 2866 B12 437 procalcitonin 0.45 ESS 0.477 White count 18.9 hemoglobin 6.9 MCV 108.9 platelets 433 sodium 1:30/83.6 BUN 31 and creatinine 1.10 Stool occult blood: Negative COVID 19 PCR: Not detected EKG tracing personally reviewed by me-normal sinus rhythm. Nonspecific T-wave changes. Chest x-ray film personally reviewed by me-masslike consolidation left upper lobe. Coarse markings. Hyperinflation Assessment and plan: -Suspect underlying pneumonia left upper lobe, gram-negative organism suspected IV ceftriaxone changed to Augmentin -Concern for underlying malignancy left upper lobe in a previous smoker. Computed tomography scan chest noted. Bronchoscopy done on February 02. Brushings. Results pending. Will follow with Dr. Alexander. -Acute COPD exacerbation in an ex-smoker: Hannah Alvarez Discharged on DuoNeb 3 times a day and Symbicort -Esophagitis, gastritis PPI -Mild protein calorie malnutrition Ensure Disposition: Home Patient Condition at Discharge: Fair Plan - Discharge Summary Discharge Rx Participant: Yes New Discharge Prescriptions: New Amoxic-Pot Clav 875-125Mg [Augmentin 875-125] 1 each PO Q12HR #10 tab Ipratropium-Albuterol Nebulize [Duoneb 0.5 mg-3 mg/3 ml Soln] 3 ml INHALATION TID #90 each Pantoprazole [Protonix] 40 mg PO AC-BRKFST #30 tab Continue Budesonide/Formoterol Fumarate [Symbicort 160-4.5 Mcg Inhaler] 2 puff INHALATION RT-BID Albuterol Nebulized [Ventolin Nebulized] 2.5 mg INHALATION RT-QID PRN PRN Reason: Shortness Of Breath Montelukast [Singulair] 10 mg PO HS Vit C/E/Zn/Coppr/Lutein/Zeaxan [Preservision Areds 2 Softgel] 1 cap PO BID Propylene Glycol/Peg 400/Pf [Systane 0.3-0.4% Eye Drop] 1 dropper BOTH EYES QID PRN PRN Reason: Dry Eye(S) Lifitegrast [Xiidra] 1 dropper BOTH EYES BID Cholecalciferol [Vitamin D3 (25 Mcg = 1000 Iu)] 50 mcg PO DAILY Melatonin 5 mg PO HS PRN PRN Reason: Insomnia Discharge Medication List Albuterol Nebulized [Ventolin Nebulized] 2.5 mg INHALATION RT-QID PRN 01/31/22 [History] Budesonide/Formoterol Fumarate [Symbicort 160-4.5 Mcg Inhaler] 2 puff INHALATION RT-BID 01/31/22 [History] Cholecalciferol [Vitamin D3 (25 Mcg = 1000 Iu)] 50 mcg PO DAILY 01/31/22 [History] Montelukast [Singulair] 10 mg PO HS 01/31/22 [History] Vit C/E/Zn/Coppr/Lutein/Zeaxan [Preservision Areds 2 Softgel] 1 cap PO BID 1 04/03/21 [History] Lifitegrast [Xiidra] 1 dropper BOTH EYES BID 02/01/22 [History] Melatonin 5 mg PO HS PRN 02/01/22 [History] Propylene Glycol/Peg 400/Pf [Systane 0.3-0.4% Eye Drop] 1 dropper BOTH EYES QID PRN 02/01/22 [History] Amoxic-Pot Clav 875-125Mg [Augmentin 875-125] 1 each PO Q12HR #10 tab 02/05/22 [Rx] Ipratropium-Albuterol Nebulize [Duoneb 0.5 mg-3 mg/3 ml Soln] 3 ml INHALATION TID #90 each 02/05/22 [Rx] Pantoprazole [Protonix] 40 mg PO AC-BRKFST #30 tab 02/05/22 [Rx] Follow up Appointment(s)/Referral(s): Hitesh Bustamante DO [Primary Care Provider] - 1-2 days (Office will call with appointment time) [employer] [NON-STAFF] - As Needed (Call [facility] to arrange delivery of the oxygen concentrator. ) Emilia Ferrer MD [STAFF PHYSICIAN] - As Needed Khadar Person DO [Doctor of Osteopathic Medicine] - 03/01/22 9:00 am [facility] Visiting Nurse, [NON-STAFF] - 1-2 Days ([facility] WILL CONTACT YOU.) Patient Instructions/Handouts: Amoxicillin/Clavulanate Potassium (By mouth), Ipratropium/Albuterol (By breathing), Pantoprazole (By mouth), Using Oxygen at Home (DC), COPD (Chronic Obstructive Pulmonary Disease) (DC), How to Use a Nebulizer (DC), Anemia (DC), Pneumonia (DC) Discharge Disposition: HOME WITH HOME HEALTH SERVICES
== END 2022-02-05 15:41 | disposition home health service (06) | DRG 178 ==
LOC: EC 17:42 → 4SSUR 20:20
PROVIDERS: ADMIT Hospitalist; ATTEND Hospitalist
PROC: 0B9M8ZX Drainage of Bilateral Lungs, Via Natural or Artificial Opening Endoscopic, Diagnostic (ICD-10-PCS; 2022-02-02)
PROC: 0B9C8ZX Drainage of Right Upper Lung Lobe, Via Natural or Artificial Opening Endoscopic, Diagnostic (ICD-10-PCS; 2022-02-02)
PROC: 0B9D8ZX Drainage of Right Middle Lung Lobe, Via Natural or Artificial Opening Endoscopic, Diagnostic (ICD-10-PCS; 2022-02-02)
PROC: 0B9G8ZX Drainage of Left Upper Lung Lobe, Via Natural or Artificial Opening Endoscopic, Diagnostic (ICD-10-PCS; 2022-02-02)
PROC: 0B9H8ZX Drainage of Lung Lingula, Via Natural or Artificial Opening Endoscopic, Diagnostic (ICD-10-PCS; 2022-02-02)
PROC: 0B9G8ZX Drainage of Left Upper Lung Lobe, Via Natural or Artificial Opening Endoscopic, Diagnostic (ICD-10-PCS; 2022-02-02)
PROC: 0B9J8ZX Drainage of Left Lower Lung Lobe, Via Natural or Artificial Opening Endoscopic, Diagnostic (ICD-10-PCS; principal; 2022-02-02 13:40)
PROC: 0B9L8ZZ Drainage of Left Lung, Via Natural or Artificial Opening Endoscopic (ICD-10-PCS; 2022-02-02 13:40)
PROC: 0BDG8ZX Extraction of Left Upper Lung Lobe, Via Natural or Artificial Opening Endoscopic, Diagnostic (ICD-10-PCS; 2022-02-02 13:40)
PROC: 0DJD8ZZ Inspection of Lower Intestinal Tract, Via Natural or Artificial Opening Endoscopic (ICD-10-PCS; 2022-02-05)
DX: J15.6 Pneumonia due to other Gram-negative bacteria (principal); C34.12 Malignant neoplasm of upper lobe, left bronchus or lung; C92.00 Acute myeloblastic leukemia, not having achieved remission; J44.0 Chronic obstructive pulmonary disease with (acute) lower respiratory infection; E44.1 Mild protein-calorie malnutrition; K22.10 Ulcer of esophagus without bleeding; D62 Acute posthemorrhagic anemia; D89.813 Graft-versus-host disease, unspecified; J44.1 Chronic obstructive pulmonary disease with (acute) exacerbation; Z68.1 Body mass index [BMI] 19.9 or less, adult; G44.1 Vascular headache, not elsewhere classified; D53.9 Nutritional anemia, unspecified; K29.50 Unspecified chronic gastritis without bleeding; K59.00 Constipation, unspecified; Z87.891 Personal history of nicotine dependence; K44.9 Diaphragmatic hernia without obstruction or gangrene; K64.8 Other hemorrhoids; F41.9 Anxiety disorder, unspecified; G47.00 Insomnia, unspecified; Z79.51 Long term (current) use of inhaled steroids; Z79.899 Other long term (current) drug therapy; Z87.19 Personal history of other diseases of the digestive system; Z20.822 Contact with and (suspected) exposure to COVID-19
CPT/HCPCS: 31623; 31624; 31625; 36415; 36430; 43235; 45378; 71045; 71046; 71260; 80048; 80053; 82272; 82607; 82728; 83540; 83550; 83605; 84145; 84443; 85025; 85610; 85730; 86850; 86900; 86901; 86920; 87040; 87070; 87205; 87635; 88104; 88108; 88305; 88342; 89050; 93005; 94640; 94760; 99291

== ENCOUNTER → 2022-02-16 | Outpatient (CLI) | payer MEDICARE, BC ==
--- NOTE | 2022-02-17 06:53 | PE ---
EXAMINATION TYPE: PET CT fusion skull to thigh DATE OF EXAM: 02/16/2022 COMPARISON: Chest CT February 01, 2022 HISTORY: Newly diagnosed left upper lung cancer. TECHNIQUE: Following the intravenous administration of 11.71 mCi of F-18 FDG, whole body images are performed from the skull base to the midthigh. Images are reviewed on the computer in the coronal, a xial, and sagittal planes. Reconstructed rotating images are created on independent workstation and reviewed on the computer. A localization and attenuation correction CT is performed in conjunction with the PET scan. Blood glucose level equals 97. SCAN: Initial Scan FINDINGS: SKULL BASE AND NECK: Symmetric uptake at the level of the vocal cords. No suspicious hypermetabolic uptake. CHEST, MEDIASTINUM, AND HILAR REGION: Background mild to moderate underlying emphysematous change red emonstrated with hypermetabolic 5.5 cm left upper lung mass adjacent to the aortic arch. There is adj acent peripheral pleural fluid and atelectatic change. No additional areas of abnormal hypermetabolic uptake are present. No hypermetabolic mediastinal lymp h nodes are seen. Patchy areas of groundglass opacity in the right upper lung are still present but l ess prominent from recent CT. ABDOMEN AND PELVIS: Normal excretion is seen. There is asymmetric low dense 1.4 cm nodular thickening of the left adrenal gland without abnormal hypermetabolic uptake. To reflect benign lipid rich adeno ma. No abnormal hypermetabolic uptake. OSSEOUS STRUCTURES: No abnormal hypermetabolic uptake. OTHER CT: Nasal septum deviated to the right of midline. Enlarged pulmonary arteries consistent with underlying pulmonary artery hypertension redemonstrated. Benign calcification in the left breast is n oted. IMPRESSION: Known left upper lobe mass or neoplasm redemonstrated. No suspicious adenopathy or metast atic disease seen.
== END | disposition home or self-care (01) ==
LOC: RADPETMAIN 13:43
PROVIDERS: ATTEND Internal Medicine Critical Care Medicine
DX: C34.12 Malignant neoplasm of upper lobe, left bronchus or lung (principal); R91.1 Solitary pulmonary nodule
CPT/HCPCS: 78815; A9552

== ENCOUNTER → 2022-02-26 | Outpatient (CLI) | payer MEDICARE, BC ==
--- NOTE | 2022-02-26 17:19 | MR ---
EXAMINATION TYPE: MR brain wo/w con DATE OF EXAM: 02/26/2022 5:02 PM CLINICAL INDICATION:Female, 71 years old with history of C34.12 LUNG CANCER; COMPARISON: 02/13/2022 TECHNIQUE: Multi planar, multi sequence imaging was performed through the brain including: T1, T2, In version recovery, susceptibility weighted imaging and gradient echo imaging and Diffusion weighted im aging. The patient was then given intravenous contrast and multi planar, T1 fat-saturation images wer e obtained. IV Contrast: 5 cc Gadavist FINDINGS: Cerebral atrophy with dilation of the ventricular systems. The basal cisterns appear unremarkable. Di ffusion-weighted imaging shows no evidence of restricted diffusion to suggest acute/subacute infarct. Intracranial arterial flow voids are maintained. Midline structures show no abnormality. Scattered f oci of high T2 signal intensity are seen within the periventricular white matter. The susceptibility weighted images demonstrates a focus of blooming artifact in the right parietal/frontal regions bilat erally suggestive of micro-hemorrhage. After administration of gadolinium, no abnormal enhancement is seen. The bone marrow signal is within normal limits. Paranasal sinuses and mastoid air cells: Clear Visualized orbits: Orbital contents are intact. IMPRESSION: 1. No evidence of intracranial mass, acute/subacute infarct, or abnormal enhancement. 2. Dilation of the ventricular systems without evidence for hydrocephalus. 3. Nonspecific white matter changes, likely related to small vessel ischemic disease
== END | disposition home or self-care (01) ==
LOC: RADMRIMAIN 15:51
PROVIDERS: ATTEND Internal Medicine
DX: C34.12 Malignant neoplasm of upper lobe, left bronchus or lung (principal); R90.82 White matter disease, unspecified; G93.89 Other specified disorders of brain
CPT/HCPCS: 70553; A9585

== ENCOUNTER → 2022-06-22 | Outpatient (CLI) | payer MEDICARE, BC ==
--- NOTE | 2022-06-22 15:58 | CT ---
EXAMINATION TYPE: CT chest abdomen w con DATE OF EXAM: 06/22/2022 COMPARISON: 02/01/2022, 02/16/2022 HISTORY: 71-year-old female C34.12, h/o lung CA, f/u TECHNIQUE: Contiguous axial scanning of the chest and abdomen following administration of 100 ml Isov ue 300 IV contrast. Delayed images through the kidneys. Coronal/sagittal reconstructions performed. CT DLP: 406.3 mGycm Automated exposure control for dose reduction was used. FINDINGS: CHEST: Heart normal size without pericardial effusion. Aorta normal caliber with bovine configuration to the aortic arch. Mild atherosclerotic arch calcific ations. Enlarged caliber to the main right and left pulmonary arteries and 2.8 cm each. No thoracic lymphadenopathy by CT size criteria. The left suprahilar and left upper lobe mass now shows prominent cavitation. It measures up to 5.1 cm versus over 5.5 cm, previously. The surrounding airspace disease also shows some improvement. Mild patchy groundglass change remains right upper lobe. Background moderate centrilobular emphysema. No pleural effusion. ABDOMEN: No focal liver lesion or biliary ductal dilatation. Portal venous system is patent. Gallbladder, kidneys, spleen, right adrenal gland, and mildly atrophic pancreas show no gross organom egaly. 1.5 cm nodularity left adrenal gland remains unchanged. Not noted to be metabolic on the patient's CT . 6 cm hypodensity posterior upper pole left kidney too small fractured CT characterization, probably a tiny cyst. No dilated small bowel, free fluid, or free air. No mesenteric or retroperitoneal lymphadenopathy. Sc attered [id number] stool. No pericolonic inflammatory change. Pelvis not imaged. BONES: Hypertrophic facet arthropathy mid to lower lumbar spine. Accentuated mid thoracic kyphosis. IMPRESSION: 1. INTERVAL PARTIAL TREATMENT RESPONSE. THE PREVIOUS LEFT SUPRAHILAR AND LEFT UPPER LOBE MASS CURRENT LY MEASURES 5.1 CM VERSUS 5.5 CM, PREVIOUSLY. INTERVAL DEVELOPMENT OF EXTENSIVE CENTRAL CAVITATION LI ENRIQUE FROM TUMOR NECROSIS. ONGOING FOLLOW-UP RECOMMENDED. 2. COPD WITH MODERATE EMPHYSEMA AND PULMONARY ARTERY HYPERTENSION. SOME PATCHY GROUNDGLASS IN THE RIG HT UPPER LOBE REMAINS UNCHANGED FROM 02/16/2022 AND MAY IN PART BE CHRONIC.
== END | disposition home or self-care (01) ==
LOC: RADCTMAIN 13:11
PROVIDERS: ATTEND Internal Medicine
DX: C34.12 Malignant neoplasm of upper lobe, left bronchus or lung (principal); J43.2 Centrilobular emphysema; I27.21 Secondary pulmonary arterial hypertension
CPT/HCPCS: 82565; 84520; 71260; 74160; 36415; Q9967

== ENCOUNTER → 2022-07-09 | Outpatient (CLI) | payer MEDICARE, BC ==
--- NOTE | 2022-07-09 17:05 | XR ---
EXAMINATION TYPE: XR chest 2V DATE OF EXAM: 07/09/2022 COMPARISON: CT 06/22/2022 HISTORY: 71-year-old female C34.12, TECHNIQUE: Frontal and lateral views FINDINGS: Heart normal size. Atherosclerotic arch calcifications. Residual left upper lobe and left suprahilar abnormal opacity. Mild diffuse interstitial density has a chronic appearance. IMPRESSION: Focal left suprahilar and left upper lobe opacity remains. Background COPD and chronic parenchymal ch anges.
== END | disposition home or self-care (01) ==
LOC: RADXRMAIN 14:56
PROVIDERS: ATTEND Internal Medicine
DX: C34.12 Malignant neoplasm of upper lobe, left bronchus or lung (principal); C92.A1 Acute myeloid leukemia with multilineage dysplasia, in remission; J44.9 Chronic obstructive pulmonary disease, unspecified; J98.4 Other disorders of lung; R91.8 Other nonspecific abnormal finding of lung field
CPT/HCPCS: 71046

== ENCOUNTER → 2022-09-10 | Outpatient (CLI) | payer MEDICARE, BC ==
[2022-09-10 13:16] LABS: African American GFR (CKD) 56 (>60 ml/min/1.73 sqM); Blood Urea Nitrogen 36 mg/dL (7-17); Non-African American GFR(CKD) 49 (>60 ml/min/1.73 sqM)
--- NOTE | 2022-09-10 14:31 | CT ---
EXAMINATION TYPE: CT chest wo/w con DATE OF EXAM: 09/10/2022 COMPARISON: 06/22/2022 HISTORY: Follow up for lung cancer and myeloid leukemia. CT DLP: 740.5 mGycm Automated exposure control for dose reduction was used. CONTRAST: CT scan of the chest is performed with IV Contrast, patient injected with 80ml mL of Isovue 300. FINDINGS: LUNGS: There is left upper lobe mass which extends to the left lung apex posteriorly and measures 5.1 x 4.4 cm. A portion of the opacity may reflect postobstructive change. Mass measured 5.1 cm previous ly. There is continued bronchial wall thickening. There is no definite hilar or mediastinal adenopath y at this time. Stable 2 mm nodule within the lingula image 29 sequence 4. Scattered interstitial pro minence persists throughout both lung jiménez. MEDIASTINUM: There are no greater than 1 cm hilar or mediastinal lymph nodes. No pericardial effusi on is seen. Thoracic aorta is of normal caliber. The heart is not enlarged. UPPER ABDOMEN: No significant abnormality appreciated. OTHER: No additional significant abnormality is seen. IMPRESSION: 1. Persistent left upper lobe mass with extension to the left lung apex posteriorly. A portion of thi s masslike density may reflect postobstructive change. No definite adenopathy present at this time.
--- NOTE | 2022-09-10 14:34 | CT ---
EXAMINATION TYPE: CT abdomen w con DATE OF EXAM: 09/10/2022 COMPARISON: 06/22/2022 HISTORY: Follow up for lung cancer and myeloid leukemia. CT DLP: 740.5 mGycm CONTRAST: CT scan of the abdomen and pelvis is performed with Oral Contrast and with IV Contrast, patient injec sunday with 80ml mL of Isovue 300. FINDINGS: LUNG BASES-: No visible nodule. No infiltrate. LIVER/GB: No calcified gallstones. No space occupying hepatic lesion. Biliary tree is of normal ca liber. PANCREAS: No inflammation. No distinct mass. SPLEEN: No splenic enlargement. No lesion seen. ADRENALS: No nodule. No thickening. KIDNEYS/BLADDER: No hydronephrosis. No nephrolithiasis. No distinct renal mass. Urinary bladder g rossly unremarkable. BOWEL: The visualized bowel loops appear to be of normal caliber. No inflammatory change or obstructi ve change seen. LYMPH NODES: No greater than 1cm abdominal or pelvic lymph nodes are appreciated. AORTA: No significant abnormality. OSSEOUS STRUCTURES: No significant abnormality is seen. OTHER: No significant additional abnormality is seen. IMPRESSION: 1. No evidence of metastatic disease to the abdomen or evidence for adenopathy.
== END | disposition home or self-care (01) ==
LOC: RADCTMAIN 12:15
PROVIDERS: ATTEND Radiology Radiation Oncology
DX: C34.12 Malignant neoplasm of upper lobe, left bronchus or lung (principal); J98.4 Other disorders of lung; R91.8 Other nonspecific abnormal finding of lung field
CPT/HCPCS: 82565; 84520; 71270; 74160; 36415; Q9967

== ENCOUNTER → 2023-01-21 | Outpatient (CLI) | payer MEDICARE, BC ==
[2023-01-21 10:00] LABS: African American GFR (CKD) 55 (>60 ml/min/1.73 sqM); Blood Urea Nitrogen 29 mg/dL (7-17); Non-African American GFR(CKD) 48 (>60 ml/min/1.73 sqM)
--- NOTE | 2023-01-21 12:10 | CT ---
EXAMINATION TYPE: CT ChestAbdPelvis w con DATE OF EXAM: 01/21/2023 COMPARISON: Most recent prior CT October 24, 2022 and older studies. HISTORY: f/u lung ca CT DLP: 421.9 mGycm. Automated Exposure Control for Dose Reduction was Utilized. CONTRAST: CT scan of the thorax, abdomen and pelvis is performed with oral and with IV Contrast, patient inject ed with 80 mL of Isovue 300. FINDINGS: LUNGS: Mild to moderate underlying emphysematous changes are redemonstrated. Worsening left upper elias g masslike consolidation and/or mass extending towards the left and suprahilar region with mass effec t on the wall of the left pulmonary artery axial image 13 now identified. Finding likely reflects enl arging neoplasm with adjacent compressive atelectasis. Some groundglass opacity in the medial right u pper to midlung likely reflecting posttreatment change remains present. No pleural effusion or pneumo thorax is seen. No new right-sided pulmonary masses. MEDIASTINUM: There are no greater than 1 cm hilar or mediastinal lymph nodes. No cardiomegaly or pe ricardial effusion is seen. Prominent pulmonary arteries remain present. OTHER: Benign calcifications in the left breast redemonstrated. LIVER/GB: No significant abnormality is appreciated. PANCREAS: No significant abnormality is seen. SPLEEN: No significant abnormality is seen. ADRENALS: Stable slight nodular thickening to the left adrenal gland axial image 49. KIDNEYS: No significant abnormality is seen. BOWEL: No significant abnormality is seen. GENITAL ORGANS: No gross abnormality seen. LYMPH NODES: No greater than 1cm abdominal or pelvic lymph nodes are appreciated. OSSEOUS STRUCTURES: Prominent thoracic kyphosis redemonstrated. OTHER: No significant additional abnormality is seen. IMPRESSION: Enlarging left upper lung mass or neoplasm with more prominent compressive atelectasis. No new metastatic disease is seen.
== END | disposition home or self-care (01) ==
LOC: RADCTMAIN 09:14
PROVIDERS: ATTEND Internal Medicine
DX: C34.12 Malignant neoplasm of upper lobe, left bronchus or lung (principal); C92.A1 Acute myeloid leukemia with multilineage dysplasia, in remission; J98.11 Atelectasis
CPT/HCPCS: 82565; 84520; 71260; 74177; 36415; Q9967

== ENCOUNTER → 2023-01-31 | Outpatient (CLI) | payer MEDICARE, BC ==
--- NOTE | 2023-02-01 08:25 | PE ---
EXAMINATION TYPE: PET CT fusion skull to thigh DATE OF EXAM: 01/31/2023 CLINICAL INDICATION:Female, 72 years old with history of C34.12 lung ca; TECHNIQUE: Following the intravenous administration of 10.1 mCi of F-18 FDG, whole body images are performed from the skull base to the midthigh. Images are reviewed on the computer in the coronal, a xial, and sagittal planes. Reconstructed rotating images are created on independent workstation and reviewed on the computer. A non-contrast CT is performed in conjunction with the PET scan. Glucose level 92 mg/dL CT DLP: 197.58 mGycm, Automated exposure control for dose reduction was used. COMPARISON: CT 01/21/2023, PET/CT 02/16/2022, FINDINGS: Mediastinal SUV mean is 2.3. Hepatic parenchyma SUV mean is 2.9. SKULL BASE AND NECK: No suspicious radiotracer activity. CHEST, MEDIASTINUM, AND HILAR REGION: There is suspected complete atelectasis and/or consolidation of the left upper lung which has worsene d from prior PET/CT 02/16/2022 overall the lung parenchyma is not significantly changed from 01/22/20. Right upper lobe medial consolidation has increased. FDG activity: * FDG avid uptake is seen throughout the left upper lung which is patchy max SUV 5.3. As well as анна ng the pleura medially max SUV 4.4. * Airspace opacities in the left lower lung max SUV 6.5. * There is uptake within the right upper lung medially which has progressed from 12/07/2022 soft tis jassi nodule measures 17 x 15 mm. Series 3 image 68 max SUV 5.6 . Uptake within the scattered musculature of the upper thorax near the left shoulder is noted and presu mably physiologic. ABDOMEN AND PELVIS: No suspicious radiotracer activity. MUSCULOSKELETAL STRUCTURES: No suspicious radiotracer activity. OTHER CT: Bilaterally aphakia. Atherosclerosis of the arterial vasculature. Scattered colonic diverti culosis. IMPRESSION: 1. Right upper lobe medial enlarging soft tissue could represent neoplasm versus worsening. Airspace disease has progressed from 12/07/2022. Treatment and follow-up CT recommended. 2. Left upper lobe consolidation with likely superimposed malignancy along the pleura. Evaluation di fficult given patchy uptake and lack of IV contrast on CT imaging. Continued surveillance recommended 3. Left lower lobe patchy uptake favoring infectious process. Treatment and follow-up CT recommended .
== END | disposition home or self-care (01) ==
LOC: RADPETMAIN 12:17
PROVIDERS: ATTEND Radiology Radiation Oncology
DX: C34.12 Malignant neoplasm of upper lobe, left bronchus or lung (principal); Z85.6 Personal history of leukemia
CPT/HCPCS: 78815; A9552

== ENCOUNTER → 2023-06-13 | Outpatient (CLI) | payer MEDICARE, BC ==
--- NOTE | 2023-06-13 21:26 | PE ---
EXAMINATION TYPE: PET CT fusion skull to thigh DATE OF EXAM: 06/13/2023 COMPARISON: 01/21/2023 CT chest abdomen pelvis Prior PET/CT: 01/31/2023 HISTORY: Lung cancer TECHNIQUE: Following the intravenous administration of 11.09 mCi of F-18 FDG, whole body images are performed from the skull base to the midthigh. Images are reviewed on the computer in the coronal, a xial, and sagittal planes. Reconstructed rotating images are created on independent workstation and reviewed on the computer. A localization and attenuation correction CT is performed in conjunction with the PET scan. DLP: 153.73 mGycm SCAN: Subsequent Blood glucose: 87 mg/dL Average Mediastinum SUV: 2.17 Average Liver SUV: 2.5 FINDINGS: NECK: No suspicious uptake THORAX: There is some diffuse uptake within the lung opacity at the left apex. There is a focal hyper intensity within the margin anteriorly, image 62, SUV 5.96. Some mild uptake is along the medial aspe ct, image 61, SUV 4.74. Along the inferior and lateral aspects of the lung mass SUV value measures 6. 99. Findings are compatible with recurrent or metastatic neoplasm. Findings there is mild uptake within the right suprahilar medial region, example image 69, SUV 3.65. ABDOMEN: No abnormal uptake PELVIS: No abnormal uptake OSSEOUS STRUCTURES: Mild uptake within the distal sternum, image 108, SUV 2.77. LOCALIZATION CT: Lung mass medial right apical mass identified. COMPARISON: SUV values of the left apical mass are slightly increased over the interval. IMPRESSION: 1. Increasing radiotracer accumulation within the left peripheral apical mass suspicious for recurren t neoplasm. 2. Milder increasing uptake in the right medial apical mass.
== END | disposition home or self-care (01) ==
LOC: RADPETMAIN 12:43
PROVIDERS: ATTEND Radiology Radiation Oncology
DX: C34.12 Malignant neoplasm of upper lobe, left bronchus or lung (principal); R91.8 Other nonspecific abnormal finding of lung field; Z85.6 Personal history of leukemia
CPT/HCPCS: 78815; A9552

== ENCOUNTER → 2023-08-15 | Outpatient (CLI) | payer MEDICARE, BC ==
--- NOTE | 2023-08-18 11:48 | PE ---
EXAMINATION TYPE: PET CT fusion skull to thigh DATE OF EXAM: 08/15/2023 COMPARISON: Most recent CT chest 01/21/2023 Prior PET/CT: 06/13/2023 HISTORY: Lung cancer TECHNIQUE: Following the intravenous administration of 9.14 mCi of F-18 FDG, whole body images are p erformed from the skull base to the midthigh. Images are reviewed on the computer in the coronal, ax ial, and sagittal planes. Reconstructed rotating images are created on independent workstation and r eviewed on the computer. A localization and attenuation correction CT is performed in conjunction w ith the PET scan. DLP: 165.88 mGycm SCAN: Subsequent Blood glucose: 120 mg/dL Average Mediastinum SUV: 2.34 Average Liver SUV: 3.07 FINDINGS: NECK: Suspicious uptake not identified. THORAX: Anterior superior left upper lobe uptake is present with an SUV of 8. Image 59. This extends along the lateral and posterior portions of the left upper lobe. Some additional focal uptake is in t he posterior medial left mid lung. Image 75, SUV 7.94. ABDOMEN: No suspicious intra-abdominal uptake. There is some focal uptake within the abdominal wall o n the left, image 161, SUV 3.68. PELVIS: No suspicious uptake OSSEOUS STRUCTURES: Subtle diffuse uptake may be within ribs and sternum. Heterogenous signal is thro ugh the pelvis Could be related to treatment. Focal suspicious uptake not identified. LOCALIZATION CT: Diffuse increased densities through the left apex. Portions of this correspond to th e hyperintensity on the PET scan. COMPARISON: The uptake in the anterior lateral left abdominal wall is increasing over the interval. U ptake within the left apex has a similar SUV and appearance. IMPRESSION: 1. Left apical uptake compatible with neoplasm has a stable appearance from prior examination. 2. New or increasing focal uptake left anterior lateral abdominal wall. 3. Scattered heterogenous appearance of uptake within osseous structures may be treatment related.
== END | disposition home or self-care (01) ==
LOC: RADPETMAIN 15:15
PROVIDERS: ATTEND Family Medicine
DX: C34.12 Malignant neoplasm of upper lobe, left bronchus or lung (principal); R93.7 Abnormal findings on diagnostic imaging of other parts of musculoskeletal system
CPT/HCPCS: 78815; A9552

== ENCOUNTER → 2023-08-27 | Outpatient (CLI) | payer MEDICARE, BC | END | disposition home or self-care (01) | LOC: LABWHC1 09:32 | PROVIDERS: ATTEND Internal Medicine | DX: D64.9 Anemia, unspecified (principal) | CPT/HCPCS: 86850; 86870; 86880; 86900; 86901 ==

== ENCOUNTER 2023-09-02 06:21 | Day surgery (SDC) | payer MEDICARE, BC ==
[2023-08-27 11:52] VITALS: BMI 18.0
[~2023-09-02 06:21] MED LIST: LACTATED RINGERS 1,000 ML IV SCH; LIDOCAINE 1% (10MG/ML) FOR IV START INTRADERMA PRN; ONDANSETRON 4 MG/2 ML VIAL IVP PRN
[2023-09-02] MEDS: IV FLUID CONTINUATION 1,000 ML IV ONE ×2 (06:38→07:03)
[2023-09-02 06:42] VITALS: TEMP 98.2
[2023-09-02] MEDS ORDERED: PROPOFOL 10 MG/ML 20 ML VIAL IV ONE (07:04)
[2023-09-02] MEDS ORDERED: PHENYLEPHRINE-0.9% NACL SYG 1,000 MCG/10 ML SYRINGE ONE (07:04)
--- NOTE | 2023-09-02 08:15 | OP ---
OPERATIVE REPORT DATE OF SERVICE : PROCEDURE PERFORMED: Bone marrow biopsy with general and local sedation. PREOPERATIVE DIAGNOSIS: Bicytopenia. POSTOPERATIVE DIAGNOSIS: Bicytopenia. DESCRIPTION OF PROCEDURE: After placement in the left lateral decubitus position, general anesthesia was administered. Palpation of the right posterior iliac spine was obtained. This area was marked with a non-permanent skin maker following anesthetization with 3 swabs of Betadine and 3 swabs of alcohol. 1% local lidocaine was applied to the periosteum. A 0.3 cm incision into the subcutaneous tissue was made. 4-inch Jamshidi needle was advanced through the periosteum to the bone marrow. Three initial passes did not obtain aspirate. A second 0.3 cm incision was made inferiorly to the first one followed by advancement of the 4-inch Jamshidi needle through the periosteum to the bone marrow. Approximately 18 mL of aspirate was obtained. Three passes were made to obtain a core sample with a small piece of bone obtained measuring about 0.2 cm. Samples will be sent for flow cytometry, FISH, cytogenetics, NGS, and morphology. We will follow up on the results in clinic. MMODL / IJN: [id number] /
[2023-09-02 08:16] VITALS: BP 112/54; PULSE 81; RESP 16
[2023-09-02 08:20] LABS: Anisocytosis Slight; HCT 28.4 % (34.0-46.0); HGB 8.8 gm/dL (11.4-16.0); Hypochromasia Moderate; MCH 28.5 pg (25.0-35.0); MCV 91.9 fL (80.0-100.0); Mean Platelet Volume 19.5; Poikilocytosis Moderate; RBC 3.09 m/uL (3.80-5.40); RDW 18.9 % (11.5-15.5); Reticulocyte % 4.9 % (0.5-2.0)
[2023-09-02 09:48] LABS: Platelet Count 56 k/uL (150-450)
[2023-09-02 09:53] LABS: Band Neutrophils % 1 %; Metamyelocytes % 2 %; Myelocytes % 2 %; Neutrophils % (M) 50 %; Nucleated Red Blood Cells 11 /100 WBC (0-0); Total Cells Counted 200
[2023-09-02 09:54] LABS: Eosinophils # (M) 0.07 k/uL (0-0.7); Lymphocytes # (M) 0.65 k/uL (1.0-4.8); Metamyelocytes # (M) 0.07 k/uL (0); Monocytes # (M) 0.94 k/uL (0-1.0); Myelocytes # (M) 0.07 k/uL (0); Polychromasia Present; WBC 3.6 k/uL (3.8-10.6)
== END 2023-09-02 08:54 | disposition home or self-care (01) ==
LOC: OR 06:21
PROVIDERS: ATTEND Internal Medicine
DX: C92.A1 Acute myeloid leukemia with multilineage dysplasia, in remission (principal); D61.818 Other pancytopenia; D69.6 Thrombocytopenia, unspecified; C34.12 Malignant neoplasm of upper lobe, left bronchus or lung; Z94.84 Stem cells transplant status; Z92.21 Personal history of antineoplastic chemotherapy; Z92.3 Personal history of irradiation; Z83.2 Family history of diseases of the blood and blood-forming organs and certain disorders involving the immune mechanism; Z87.891 Personal history of nicotine dependence; Z79.899 Other long term (current) drug therapy
CPT/HCPCS: 85025; 85045; 38222; J2704; J2371

== ENCOUNTER 2023-09-17 13:26 | Inpatient (IN) | payer MEDICARE, BC ==
[2023-09-17 14:25] LABS: Anisocytosis Slight; HCT 21.4 % (34.0-46.0); Hypochromasia Marked; MCH 29.6 pg (25.0-35.0); MCHC 32.8 g/dL (31.0-37.0); MCV 90.2 fL (80.0-100.0); Mean Platelet Volume 16.4; Poikilocytosis Slight; RBC 2.37 m/uL (3.80-5.40); RDW 18.7 % (11.5-15.5)
[2023-09-17 14:29] LABS: INR 1.1 (<1.2); Prothrombin Time 11.8 sec (10.0-12.5)
[2023-09-17 14:41] LABS: Platelet Count 61 k/uL (150-450)
[2023-09-17 14:49] LABS: ALT 12 U/L (4-34); AST 19 U/L (14-36); African American GFR (CKD) 44 (>60 ml/min/1.73 sqM); Albumin 3.5 g/dL (3.5-5.0); Alkaline Phosphatase 80 U/L (38-126); Anion Gap 6 mmol/L; Blood Urea Nitrogen 26 mg/dL (7-17); Calcium 8.3 mg/dL (8.4-10.2); Carbon Dioxide 27 mmol/L (22-30); Chloride 103 mmol/L (98-107); Glucose 122 mg/dL (74-99); Non-African American GFR(CKD) 38 (>60 ml/min/1.73 sqM); Potassium 4.3 mmol/L (3.5-5.1); Sodium 136 mmol/L (137-145); Total Bilirubin 0.5 mg/dL (0.2-1.3); Total Protein 6.4 g/dL (6.3-8.2)
--- NOTE | 2023-09-17 15:20 | CT ---
EXAMINATION TYPE: CT brain cspine wo con CT DLP: 1197.5 mGycm, Automated exposure control for dose reduction was used. DATE OF EXAM: 09/17/2023 2:47 PM COMPARISON: None. CLINICAL INDICATION:Female, 73 years old with history of fall, trauma; pain after fall today. Initi al encounter. TECHNIQUE: Brain: Multiple axial CT images of the brain were obtained without IV contrast. Cspine: Axial CT images from the skull base to the inferior aspect of T2 we obtained without intraven ous contrast. Coronal and sagittal reformatted images were also reviewed. FINDINGS: Brain: Extra-axial spaces: No abnormal extra-axial fluid collections. Ventricular system: Within normal limits Cerebral parenchyma: No acute intraparenchymal hemorrhage or mass effect. The warner-white junction is well differentiated. Cerebellum: Unremarkable. Mass effect: No evidence of midline shift. Intracranial vasculature: unremarkable Soft tissues: Normal. Calvarium/osseous structures: No depressed skull fracture. Paranasal sinuses and mastoid air cells: Clear. Visualized orbits: Orbital contents are intact. Cervical spine: Fracture: None. Osseous structures: Unremarkable Vertebral alignment: Within normal limits. Spinal canal/Neural Foramina: No evidence of significant spinal canal narrowing. No evidence for sign ificant neural foraminal stenosis. Neck soft tissues: Large left pleural effusion, other etiology approximately mass. Follow-up CT chest recommended. Other: The airway is patent. The lung apices are clear. IMPRESSION: No acute intracranial process. Large left pleural effusion other pathological process in the left chest. No evidence of cervical spine fracture. Mild multilevel degenerative disc disease.
--- NOTE | 2023-09-17 15:23 | XR ---
EXAMINATION TYPE: XR hand complete RT DATE OF EXAM: 09/17/2023 2:58 PM CLINICAL INDICATION:Female, 73 years old with history of fall, pain; [facility]. Initial encounter. COMPARISON: None TECHNIQUE: XR hand complete RT Frontal, lateral and oblique views were obtained. FINDINGS: Normal alignment of the visualized joints. No acute osseous pathology is identified. No e vidence of soft tissue swelling. Scaphoid/ST-T complex arthritic changes IMPRESSION: No acute osseous pathology.
--- NOTE | 2023-09-17 15:28 | XR ---
EXAMINATION TYPE: XR knee complete RT DATE OF EXAM: 09/17/2023 2:58 PM CLINICAL INDICATION:Female, 73 years old with history of trauma, fall; [facility] COMPARISON: No recent comparisons. TECHNIQUE: XR knee complete RT; examined in Frontal, Tunnel, lateral and oblique projections. FINDINGS: Patellar fracture, due to suspected. 2 partially threaded screws in the tibial plateau ar e intact., soft tissue swelling, or joint effusion is noted. IMPRESSION: 1. Patellar fracture suspected.. 2. 2 partially threaded screws in the tibial plateau. .
--- NOTE | 2023-09-17 15:29 | XR ---
EXAMINATION TYPE: XR shoulder complete LT DATE OF EXAM: 09/17/2023 2:58 PM CLINICAL INDICATION:Female, 73 years old with history of trauma, fall; H COMPARISON: None recent. TECHNIQUE: XR shoulder complete LT; examined in AP, internally rotated and scapular Y projections. FINDINGS: No evidence of acute osseous pathology, joint dislocation, or soft tissue swelling. The remaining po rtions of the visualized chest are unremarkable. IMPRESSION: No acute osseous pathology.
[2023-09-17 15:34] LABS: Howell-Jolly Bodies Present; Large Platelets Present; Polychromasia Present
[2023-09-17 15:43] LABS: Band Neutrophils % 4 %; Metamyelocytes % 1 %; Myelocytes % 7 %; Neutrophils % (M) 66 %; Nucleated Red Blood Cells 21 /100 WBC (0-0); Total Cells Counted 100
[2023-09-17 15:44] LABS: Lymphocytes # (M) 0.22 k/uL (1.0-4.8); Metamyelocytes # (M) 0.03 k/uL (0); Monocytes # (M) 0.48 k/uL (0-1.0); Myelocytes # (M) 0.22 k/uL (0); WBC 3.2 k/uL (3.8-10.6)
[2023-09-17] MEDS: ACETAMINOPHEN TAB 500 MG TAB PO STA (17:05)
--- NOTE | 2023-09-17 18:28 | ED ---
Fall HPI - General Chief Complaint: Fall Stated Complaint: Fall-R side knee pain Time Seen by Provider: 09/17/23 13:30 Source: patient, EMS Mode of arrival: EMS - History of Present Illness Initial Comments: 73-year-old female who presents to the emergency department after a fall. Patient was taking out her trash when she lost her balance. She fell onto her right knee, left shoulder and hit her face on the cement. She denies losing consciousness. She was able to get to her phone and call her sister. A neighbor had been walking by and saw her on the ground and assisted her up. She was able to put some weight on the right knee however it was extremely painful. Subsequently it has swollen up pretty well and patient is no longer able to ambulate on it. Patient denies being on any blood thinners. 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 Recently the patient has had low hemoglobin with blood transfusions. Her last transfusion was on August 27. She denies any neck or back pain. No chest pain or difficulty breathing. No headaches or visual changes. No other alleviating, precipitating or modifying factors - Related Data Home Medications Medication Instructions Recorded Confirmed Cholecalciferol (Vitamin D3) 50 mcg PO DAILY 09/17/23 09/17/23 [Vitamin D3 (50 Mcg = 2000 Iu)] Vit C/E/Zn/Coppr/Lutein/Zeaxan 1 cap PO BID 09/17/23 09/17/23 [Preservision Areds 2 Softgel] Allergies Allergy/AdvReac Type Severity Reaction Status Date / Time No Known Allergies Allergy Verified 09/17/23 16:09 Review of Systems ROS Statement: Those systems with pertinent positive or pertinent negative responses have been documented in the HPI. ROS Other: All systems not noted in ROS Statement are negative. 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, lung CA History of Any Multi-Drug Resistant Organisms: None Reported Past Surgical History: Orthopedic Surgery, Tonsillectomy Additional Past Surgical History / Comment(s): bone marrow transplant, left ankle surgery with screw, right tib surgery with screw Past Anesthesia/Blood Transfusion Reactions: No Reported Reaction Past Psychological History: No Psychological Hx Reported Smoking Status: Former smoker General Exam Limitations: no limitations General appearance: alert, in no apparent distress Head exam: Present: other (Ecchymosis and abrasions to the left forehead) Eye exam: Present: normal appearance, PERRL, EOMI. Absent: scleral icterus, conjunctival injection, periorbital swelling ENT exam: Present: normal exam, mucous membranes moist Neck exam: Present: normal inspection. Absent: tenderness, meningismus, lymphadenopathy Respiratory exam: Present: normal lung sounds bilaterally. Absent: respiratory distress, wheezes, rales, rhonchi, stridor Cardiovascular Exam: Present: regular rate, normal rhythm, normal heart sounds. Absent: systolic murmur, diastolic murmur, rubs, gallop, clicks GI/Abdominal exam: Present: soft, normal bowel sounds. Absent: distended, tenderness, guarding, rebound, rigid Extremities exam: Present: other (Ecchymosis to the left shoulder. There is a large knee effusion on the right with overlying ecchymosis. Mild abrasion. Patient has no ability to extend the right leg) Back exam: Present: normal inspection Neurological exam: Present: alert, oriented X3, CN II-XII intact Skin exam: Present: warm, dry, normal color. Absent: rash Course Vital Signs 09/17/23 09/17/23 13:28 17:01 Temperature 97.8 F Pulse Rate 103 H 81 Respiratory 16 17 Rate Blood Pressure 118/49 128/56 O2 Sat by Pulse 96 94 L Oximetry Medical Decision Making - Medical Decision Making Was pt. sent in by a medical professional or institution ([facility], GRADUATE STUDENT INSTRUCTOR, urgent care, hospital, or detention...) When possible be specific @ -No Did you speak to anyone other than the patient for history (EMS, parent, family, police, friend...)? What history was obtained from this source @ -Spoke with patient's family for history as well as EMS Did you review nursing and triage notes (agree or disagree)? Why? @ -I reviewed and agree with nursing and triage notes Were old charts reviewed (outside hosp., previous admission, EMS record, old EKG, old radiological studies, urgent care reports/EKG's, detention records)? Report findings @ -I reviewed the results of the patient's bone marrow biopsy which was done on September 01 Differential Diagnosis (chest pain, altered mental status, abdominal pain women, abdominal pain men, vaginal bleeding, weakness, fever, dyspnea, syncope, headache, dizziness, GI bleed, back pain, seizure, CVA, palpatations, mental health, musculoskeletal)? @ -Differential Musculoskeletal Muscular strain, contusion, ligament sprain, fracture, arthritis, septic arthritis, bursitis, cellulitis, muscle spasm, nerve compression, DVT, arterial occlusion, herpes zoster, electrolyte abnormality, tumor.... This is not meant to be in all inclusive list EKG interpreted by me (3pts min.). @ -Not done X-rays interpreted by me (1pt min.). @ -Yes and demonstrates patellar fracture on the right CT interpreted by me (1pt min.). @ -Yes and demonstrates no acute intracranial process U/S interpreted by me (1pt. min.). @ -None done What testing was considered but not performed or refused? (CT, X-rays, U/S, labs)? Why? @ -None What meds were considered but not given or refused? Why? @ -None Did you discuss the management of the patient with other professionals (professionals i.e. , PA, GRADUATE STUDENT INSTRUCTOR, lab, RT, psych nurse, child protective services social worker, paper sample clerk, teacher, gift officer, case packer)? Give summary @ -Spoke with Delores from [facility] for admission Was smoking cessation discussed for >3mins.? @ -No Was critical care preformed (if so, how long)? @ -Yes, 35 minutes for blood product transfusion Were there social determinants of health that impacted care today? How? (Homelessness, low income, unemployed, alcoholism, drug addiction, transportation, low edu. Level, literacy, decrease access to med. care, [facility] [facility], rehab)? @ -No Was there de-escalation of care discussed even if they declined (Discuss DNR or withdrawal of care, Hospice)? DNR status @ -No What co-morbidities impacted this encounter? (DM, HTN, Smoking, COPD, CAD, Cancer, CVA, ARF, Chemo, Hep., AIDS, mental health diagnosis, sleep apnea, morbid obesity)? @ -AML Was patient admitted / discharged? Hospital course, mention meds given and route, prescriptions, significant lab abnormalities, going to OR and other pertinent info. @ -Upon arrival patient seen and evaluated in room 17. Thorough history and physical exam was performed. Patient had been given pain medications by EMS. IV was established and laboratory studies are conducted. CT of the brain was performed. X-ray was performed as well as a knee x-ray. Imaging is remarkable for a patellar fracture. Patient is unable to extend the right leg. She is placed in a knee immobilizer. Hemoglobin is 7 from 8.8. I do have high concern that patient's next hemoglobin drop will be below 7 and she will require transfusion. Patient has antibodies and therefore type and screen is ordered at this time with a repeat CBC at 8 PM. Patient will be admitted with orthopedic consult. Spoke with Delores from [facility] for admission Undiagnosed new problem with uncertain prognosis? @ -No Drug Therapy requiring intensive monitoring for toxicity (Heparin, Nitro, Insulin, Cardizem)? @ -No Were any procedures done? @ -No Diagnosis/symptom? @ -Acute fall, acute right patellar fracture, anemia, history of AML Acute, or Chronic, or Acute on Chronic? @ -Acute Uncomplicated (without systemic symptoms) or Complicated (systemic symptoms)? @ -complicated Side effects of treatment? @ -No Exacerbation, Progression, or Severe Exacerbation? @ -No Poses a threat to life or bodily function? How? (Chest pain, [place], [place], pneumonia, PE, COPD, DKA, ARF, appy, cholecystitis, CVA, Diverticulitis, Homicidal, Suicidal, threat to staff... and all critical care pts) @ -Yes as patient requires transfusion of blood products - Lab Data Result diagrams: 09/17/23 14:13 09/17/23 14:13 Lab Results 09/17/23 09/17/23 09/17/23 Range/Units 14:13 14:13 14:13 WBC 3.2 L (3.8-10.6) k/uL RBC 2.37 L (3.80-5.40) m/uL Hgb 7.0 L D (11.4-16.0) gm/dL Hct 21.4 L (34.0-46.0) % MCV 90.2 (80.0-100.0) fL MCH 29.6 (25.0-35.0) pg MCHC 32.8 (31.0-37.0) g/dL RDW 18.7 H (11.5-15.5) % Plt Count 61 L (150-450) k/uL MPV 16.4 Neutrophils % (Manual) 66 % Band Neuts % (Manual) 4 % Lymphocytes % (Manual) 7 % Monocytes % (Manual) 15 % Metamyelocytes % 1 % Myelocytes % 7 % Neutrophils # (Manual) 2.20 (1.3-7.7) k/uL Lymphocytes # (Manual) 0.22 L (1.0-4.8) k/uL Monocytes # (Manual) 0.48 (0-1.0) k/uL Metamyelocytes # (Man) 0.03 H (0) k/uL Myelocytes # (Manual) 0.22 H (0) k/uL Nucleated RBCs 21 H (0-0) /100 WBC Manual Slide Review Performed Large Platelets Present Polychromasia Present Hypochromasia Marked Poikilocytosis Slight Anisocytosis Slight Xion[place] Bodies Present PT 11.8 (10.0-12.5) sec INR 1.1 (<1.2) Sodium 136 L (137-145) mmol/L Potassium 4.3 (3.5-5.1) mmol/L Chloride 103 (98-107) mmol/L Carbon Dioxide 27 (22-30) mmol/L Anion Gap 6 mmol/L BUN 26 H (7-17) mg/dL Creatinine 1.38 H (0.52-1.04) mg/dL Est GFR (CKD-EPI)AfAm 44 (>60 ml/min/1.73 sqM) Est GFR (CKD-EPI)NonAf 38 (>60 ml/min/1.73 sqM) Glucose 122 H (74-99) mg/dL Calcium 8.3 L (8.4-10.2) mg/dL Total Bilirubin 0.5 (0.2-1.3) mg/dL AST 19 (14-36) U/L ALT 12 (4-34) U/L Alkaline Phosphatase 80 (38-126) U/L Total Protein 6.4 (6.3-8.2) g/dL Albumin 3.5 (3.5-5.0) g/dL Disposition Clinical Impression: Fall, Right patella fracture, Blunt head injury, Anemia Disposition: ADMITTED IP TO THIS [facility] Condition: Stable Is patient prescribed a controlled substance at d/c from ED?: No Referrals: Hitesh Bustamante DO [Primary Care Provider] - 1-2 days Time of Disposition: 18:28 Decision to Admit Reason: Admit from EC Decision Date: 09/17/23 Decision Time: 18:29
[2023-09-17] MEDS ORDERED: NALOXONE 0.4 MG/ML 1 ML VIAL IV PRN (18:29)
[2023-09-17] MEDS ORDERED: ACETAMINOPHEN TAB 325 MG TAB PO PRN (18:29)
[2023-09-17] MEDS: ARTIFICIAL TEARS-HYPROMELLOSE DROPS 15 ML BTL BOTH EYES PRN (22:23)
[2023-09-17] MEDS: VIT A,C & E-LUTEIN-MINERALS 1 EACH TAB PO SCH (22:23)
[2023-09-17] MEDS: MELATONIN 5 MG TABLET PO SCH (22:32)
[2023-09-17] MEDS: MORPHINE SULFATE 4 MG/ML SYRINGE IV PRN (23:46)
[2023-09-18 03:33] LABS: African American GFR (CKD) 45 (>60 ml/min/1.73 sqM); Anion Gap 7 mmol/L; Blood Urea Nitrogen 31 mg/dL (7-17); Calcium 8.8 mg/dL (8.4-10.2); Carbon Dioxide 25 mmol/L (22-30); Chloride 103 mmol/L (98-107); Glucose 102 mg/dL (74-99); Non-African American GFR(CKD) 39 (>60 ml/min/1.73 sqM); Potassium 4.8 mmol/L (3.5-5.1); Sodium 135 mmol/L (137-145)
[2023-09-18 03:37] LABS: Anisocytosis Slight; Hypochromasia Marked; MCH 29.5 pg (25.0-35.0); MCHC 32.1 g/dL (31.0-37.0); MCV 91.9 fL (80.0-100.0); Mean Platelet Volume 18.5; Platelet Count 40 k/uL (150-450); Poikilocytosis Slight; RBC 2.16 m/uL (3.80-5.40); RDW 18.7 % (11.5-15.5)
[2023-09-18 03:38] LABS: HCT 19.9 % (34.0-46.0); HGB 6.4 gm/dL (11.4-16.0)
[2023-09-18 06:12] LABS: Band Neutrophils % 21 %; Neutrophils % (M) 39 %; Nucleated Red Blood Cells 33 /100 WBC (0-0); Total Cells Counted 200
[2023-09-18 06:13] LABS: Eosinophils # (M) 0.06 k/uL (0-0.7); Lymphocytes # (M) 0.58 k/uL (1.0-4.8); Monocytes # (M) 0.55 k/uL (0-1.0); WBC 2.9 k/uL (3.8-10.6)
[2023-09-18 06:14] LABS: Anisocytosis (M) Present; Howell-Jolly Bodies Present; Hypochromasia (M) Present; Polychromasia Present
[2023-09-18 06:15] LABS: Large Platelets Present
[2023-09-18] MEDS: CHOLECALCIFEROL 25 MCG (1000 IU) TABLET PO SCH (08:41)
[2023-09-18 11:40] VITALS: BMI 17.4
[2023-09-18] MEDS ORDERED: HYDROcodone/APAP 5-325MG 1 EACH TAB PO PRN (13:07)
--- NOTE | 2023-09-18 14:32 | P.HPIM ---
History of Present Illness H&P Date: 09/18/23 This is a very pleasant 73-year-old female who presented to the emergency department with right knee pain with a recent mechanical fall while walking the garbage to the end of the road in her driveway. Patient did strike her head and shoulder and landed directly on her right knee and reports did not lose consciousness. Neighbors were walking by and has a tight neck community and she also brought her phone with her and called her sister. Patient on the scene was able to get up and stand until she realized trying to get into the house she was having severe pain in her right knee. Patient reports she follows with Dr. 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 Patient reports she had a blood transfusion on 27 August this month. Hemoglobin was noted to be 7.0 with a WBC of 3.2 and platelets were 61 on admission to the ER. This morning's labs repeated showing a hemoglobin of 6.4 with hematocrit of 19.9 currently awaited specialized blood per oncology. Patient also with a mildly elevated creatinine of 1.3 and baseline appears to be 1.0-1.1 and most recently 1.2 in June of this year. Patient underwent other images including CT head and cervical spine showing no acute intracranial process with large left pleural effusion and other pathological process in the left chest with no evidence of cervical spine fracture and noted mild multilevel degenerative disc disease. Left shoulder x-ray showed no acute osseous pathology, right hand negative for any fractures, right knee is suggestive of a patellar fracture and 2 partially-threaded screws in the tibial plateau that are intact with noted soft tissue swelling. Patient was admitted with orthopedics on consult as well as hematology/oncology. REVIEW OF SYSTEMS: CONSTITUTIONAL: No fever, no malaise, no fatigue. HEENT: No recent visual problems or hearing problems. Denied any sore throat. CARDIOVASCULAR: No chest pain, orthopnea, PND, no palpitations, no syncope. PULMONARY: No shortness of breath, no cough, no hemoptysis. GASTROINTESTINAL: No diarrhea, no nausea, no vomiting, no abdominal pain. NEUROLOGICAL: No headaches, no weakness, no numbness. HEMATOLOGICAL: Denies any bleeding or petechiae. GENITOURINARY: Denies any burning micturition, frequency, or urgency. MUSCULOSKELETAL/RHEUMATOLOGICAL: Reports right knee pain and swelling, pain is managed when not moving the knee with inability to ambulate on that right knee ENDOCRINE: Denies any polyuria or polydipsia. The rest of the 14-point review of systems is negative. PHYSICAL EXAMINATION: GENERAL: The patient is alert and oriented x3, not in any acute distress. Well developed, well nourished. HEENT: Pupils are round and equally reacting to light. EOMI. No scleral icterus. No conjunctival pallor. Normocephalic, atraumatic. No pharyngeal erythema. No thyromegaly. CARDIOVASCULAR: S1 and S2 present. No murmurs, rubs, or gallops. PULMONARY: Chest is clear to auscultation, no wheezing or crackles. ABDOMEN: Soft, nontender, nondistended, normoactive bowel sounds. No palpable organomegaly. MUSCULOSKELETAL: No joint swelling or deformity. EXTREMITIES: No cyanosis, clubbing, or pedal edema. NEUROLOGICAL: Gross neurological examination did not reveal any focal deficits. SKIN: No rashes. 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 Hemoglobin was found to be 6.9 and currently awaiting blood per oncology as patient has antibodies noted Platelets are 40 and will likely monitor closely and needed transfusion Awaiting orthopedic recommendations and weightbearing status Continue with pain management Continue gentle hydration and follow-up on repeat labs to monitor kidney func tions. replace electrolytes per protocol PT/OT therapy to evaluate as patient may need rehab on discharge with case management consulted and pending. The impression and plan of care has been dictated by Delores Looney, Nurse Practitioner as directed. Dr. Allyn MD I have performed a history and examination and MDM of this patient, discussed the same with the dictator, and agree with the dictator's assessment and plan as written ,documented as a scribe. Based on total visit time, I have performed more than 50% of the visit. 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, lung CA, last blood transfusion was on 08/28/23 History of Any Multi-Drug Resistant Organisms: None Reported Past Surgical History: Orthopedic Surgery, Tonsillectomy Additional Past Surgical History / Comment(s): bone marrow transplant, left ankle surgery with screw, right tib surgery with screw Past Anesthesia/Blood Transfusion Reactions: No Reported Reaction Past Psychological History: No Psychological Hx Reported Smoking Status: Former smoker Past Alcohol Use History: Rare Past Drug Use History: None Reported Medications and Allergies Home Medications Medication Instructions Recorded Confirmed Type Cholecalciferol (Vitamin D3) 50 mcg PO DAILY 09/17/23 09/17/23 History [Vitamin D3 (50 Mcg = 2000 Iu)] Vit C/E/Zn/Coppr/Lutein/Zeaxan 1 cap PO BID 09/17/23 09/17/23 History [Preservision Areds 2 Softgel] HYDROcodone/APAP 5-325MG [[place] 1 tab PO Q6HR PRN #28 tab 09/18/23 Rx 5-325] Allergies Allergy/AdvReac Type Severity Reaction Status Date / Time No Known Allergies Allergy Verified 09/17/23 16:09 Physical Exam Vitals: Vital Signs Temp Pulse Pulse Resp BP BP BP 09/18/23 07:20 98.1 F 89 18 97/42 96/45 09/18/23 00:01 97.4 F L 99 15 101/54 09/17/23 21:17 16 09/17/23 21:03 98.6 F 76 15 113/56 09/17/23 20:30 97.8 F 104 H 17 102/56 09/17/23 17:01 81 17 128/56 09/17/23 13:28 97.8 F 103 H 16 118/49 Pulse Ox 09/18/23 07:20 93 L 09/18/23 00:01 94 L 09/17/23 21:17 09/17/23 21:03 92 L 09/17/23 20:30 95 09/17/23 17:01 94 L 09/17/23 13:28 96 Intake and Output 09/17/23 09/18/23 09/18/23 22:59 06:59 14:59 Other: Voiding Method Bedside Commode # Voids 1 1 1 Weight 47.627 kg Results CBC & Chem 7: 09/18/23 02:16 09/18/23 02:16 Labs: Abnormal Lab Results - Last 24 Hours (Table) 09/17/23 09/17/23 09/18/23 Range/Units 14:13 14:13 02:16 WBC 3.2 L (3.8-10.6) k/uL RBC 2.37 L (3.80-5.40) m/uL Hgb 7.0 L D (11.4-16.0) gm/dL Hct 21.4 L (34.0-46.0) % RDW 18.7 H (11.5-15.5) % Plt Count 61 L (150-450) k/uL Lymphocytes # (Manual) 0.22 L (1.0-4.8) k/uL Metamyelocytes # (Man) 0.03 H (0) k/uL Myelocytes # (Manual) 0.22 H (0) k/uL Nucleated RBCs 21 H (0-0) /100 WBC Sodium 136 L 135 L (137-145) mmol/L BUN 26 H 31 H (7-17) mg/dL Creatinine 1.38 H 1.36 H (0.52-1.04) mg/dL Glucose 122 H 102 H (74-99) mg/dL Calcium 8.3 L (8.4-10.2) mg/dL 09/18/23 Range/Units 02:16 WBC 2.9 L (3.8-10.6) k/uL RBC 2.16 L (3.80-5.40) m/uL Hgb 6.4 L* (11.4-16.0) gm/dL Hct 19.9 L* (34.0-46.0) % RDW 18.7 H (11.5-15.5) % Plt Count 40 L (150-450) k/uL Lymphocytes # (Manual) 0.58 L (1.0-4.8) k/uL Metamyelocytes # (Man) (0) k/uL Myelocytes # (Manual) (0) k/uL Nucleated RBCs 33 H (0-0) /100 WBC Sodium (137-145) mmol/L BUN (7-17) mg/dL Creatinine (0.52-1.04) mg/dL Glucose (74-99) mg/dL Calcium (8.4-10.2) mg/dL Thrombosis Risk Factor Assmnt - DVT/VTE Prophylaxis DVT/VTE Prophylaxis: Pharmacologic Prophylaxis ordered, Mechanical Prophylaxis ordered - Choose All That Apply Any of the Below Risk Factors Present?: Yes Other Risk Factors: Yes Each Risk Factor Represents 2 Points: Age 61-74 years, Malignancy Each Risk Factor Represents 5 Points: Hip, pelvis, or leg fracture (< 1 month) Thrombosis Risk Factor Assessment Total Risk Factor Score: 9 Thrombosis Risk Factor Assessment Level: High Risk Assessment and Plan Time with Patient: Greater than 30
--- NOTE | 2023-09-18 17:27 | P.CONS ---
History of Present Illness - Reason for Consult Consult date: 09/18/23 anemia, hx AML Requesting physician: Deepthi Reza - Chief Complaint fall - History of Present Illness Ms. 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 She is now following with Dr. Nigel Vera, who was referred for squamous cell carcinoma of the left upper lobe. She had been at her baseline up until the end of December 2021, when she noted increased dyspnea on exertion, which she did not have prior. In addition, she noted a productive cough with nonbloody sputum. When this did not improve with outpatient antibiotics, she was recommended to be admitted for additional inpatient management. Chest x-ray on 01/31/2022 noted 8 cm masslike area of consolidation in the left upper lobe. Subsequent CT scan of the chest on 02/01/2022 noted a 6.3 x 5.7 cm left upper lobe mass with central necrosis and extension to the left lateral pleural surface. No hilar or mediastinal lymphadenopathy was noted. Subcentimeter prevascular space lymph nodes were visualized. She underwent a bronchoscopy with BAL and biopsy on 02/02/2022 with pathology of the left upper lobe brush tip consistent with focal cytologic atypia compatible with squamous cell carcinoma (P 40 positive). Biopsy of the left upper lobe mass revealed peribronchial tissue with acute and chronic inflammation and was not diagnostic for neoplasia. She subsequently underwent a PET/CT on 02/16/2022, which noted a 5.5 cm left upper lobe mass with hypermetabolic uptake (no SUV reported). There was no evidence of hypermetabolic activity in the mediastinal lymph nodes or anywhere outside of the chest. Brain MRI revealed no evidence of intracranial metastases. She was discussed at [facility] multidisciplinary tumor board was evaluated [facility] with both concluding that she is not a candidate for surgical intervention. Moreover, she had bronchoscopy performed on 04/25/2022 at [facility], which noted positive station 4R lymph node with PD-L1 TPS of 25%. Original NGS revealed 2 TP53 mutations with no targetable mutations. 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 She initiated concurrent chemotherapy with carboplatin/paclitaxel and radiation therapy on 05/07/2022. She underwent cycle 6 with Taxol on 06/18/2022 alone due to national shortage of carboplatin, and completed radiation therapy on 06/21/2022. CT chest/abdomen on 06/22/2022 with associated with partial response of the left upper lobe/left suprahilar mass. Following discussion with her transplant team at [facility], she proceeded to cycle 1 of consolidative durvalumab on 07/13/2022 and has since completed cycle 12 of treatment on 05/29/2023. Repeat PET/CT on 06/13/2023 following completion of durvalumab noted persistent FDG avidity with the most uptake at the left lateral aspect more medially. Her case was discussed at [facility] thoracic multidisciplinary tumor board and recommended short follow-up PET/CT. PET/CT on 08/15/2023 noted stable appearance to the left apical FDG avid area. Per my review of imaging, she appears to have less FDG avidity in this region compared to the PET/CT in May 2023. It is unclear what the uptake at the left anterior abdominal wall is, but she denies any abdominal pain with no abdominal wall lesions on exam. She has having evidence of symptomatic anemia with progressive drop in hemoglobin and platelets. Workup following her last visit revealed no evidence of iron, vitamin B12, folic acid deficiency, or hemolysis. SPEP and immunnofixation negative for monoclonal paraproteinemia, K/L ratio normal. Given her prior history with AML and allogenic stem cell transplant, bone marrow biopsy was scheduled for 09/02/23. She received 1 unit PRBCs outpt on 08/28/23. 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 Next clinic f/u scheduled with Dr. Nai Vera on 09/26/23 to further discuss bone marrow results and treatment recommendations. Patient presented to the emergency room after mechanical fall injuring her right knee and striking her head. On admission CT brain cervical spine was negative for acute intracranial processes negative for acute fracture. Right knee x-ray showed suspected patellar fracture. Orthopedic surgery has been consulted. Labs reviewed, on admission CBC showing pancytopenia, with WBC 3.2, hemoglobin 7.0, and platelets 61,000. Today WBC 2.9, ANC 1.7, hemoglobin 6.4, platelets 40,000. 1 unit PRBCs has been ordered. No reported acute bleeding episodes. Review of Systems 10 point ROS is negative except as stated in the HPI 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, lung CA, last blood transfusion was on 08/28/23 History of Any Multi-Drug Resistant Organisms: None Reported Past Surgical History: Orthopedic Surgery, Tonsillectomy Additional Past Surgical History / Comment(s): bone marrow transplant, left ankle surgery with screw, right tib surgery with screw Past Anesthesia/Blood Transfusion Reactions: No Reported Reaction Past Psychological History: No Psychological Hx Reported Smoking Status: Former smoker Past Alcohol Use History: Rare Past Drug Use History: None Reported Medications and Allergies Home Medications Medication Instructions Recorded Confirmed Type Cholecalciferol (Vitamin D3) 50 mcg PO DAILY 09/17/23 09/17/23 History [Vitamin D3 (50 Mcg = 2000 Iu)] Vit C/E/Zn/Coppr/Lutein/Zeaxan 1 cap PO BID 09/17/23 09/17/23 History [Preservision Areds 2 Softgel] HYDROcodone/APAP 5-325MG [[place] 1 tab PO Q6HR PRN 7 Days #28 tab 09/18/23 Rx 5-325] Allergies Allergy/AdvReac Type Severity Reaction Status Date / Time No Known Allergies Allergy Verified 09/17/23 16:09 Physical Exam Vitals: Vital Signs Temp Pulse Pulse Resp BP BP BP 09/18/23 07:20 98.1 F 89 18 97/42 96/45 09/18/23 00:01 97.4 F L 99 15 101/54 09/17/23 21:17 16 09/17/23 21:03 98.6 F 76 15 113/56 09/17/23 20:30 97.8 F 104 H 17 102/56 09/17/23 17:01 81 17 128/56 09/17/23 13:28 97.8 F 103 H 16 118/49 Pulse Ox 09/18/23 07:20 93 L 09/18/23 00:01 94 L 09/17/23 21:17 09/17/23 21:03 92 L 09/17/23 20:30 95 09/17/23 17:01 94 L 09/17/23 13:28 96 Intake and Output 09/17/23 09/18/23 09/18/23 22:59 06:59 14:59 Other: Voiding Method Bedside Commode # Voids 1 1 1 Weight 47.627 kg 47.627 kg - Constitutional General appearance: average body habitus, no acute distress - EENT Eyes: anicteric sclerae, EOMI ENT: hearing grossly normal - Respiratory Respiratory: bilateral: CTA - Cardiovascular Rhythm: regular - Gastrointestinal General gastrointestinal: soft, no tenderness - Integumentary Integumentary: no cyanotic, no jaundiced, pale - Neurologic grossly intact - Musculoskeletal bruising and edema noted to right knee - Psychiatric Psychiatric: A&O x's 3 Results CBC & Chem 7: 09/18/23 02:16 09/18/23 02:16 Labs: Abnormal Lab Results - Last 24 Hours (Table) 09/17/23 09/17/23 09/18/23 Range/Units 14:13 14:13 02:16 WBC 3.2 L (3.8-10.6) k/uL RBC 2.37 L (3.80-5.40) m/uL Hgb 7.0 L D (11.4-16.0) gm/dL Hct 21.4 L (34.0-46.0) % RDW 18.7 H (11.5-15.5) % Plt Count 61 L (150-450) k/uL Lymphocytes # (Manual) 0.22 L (1.0-4.8) k/uL Metamyelocytes # (Man) 0.03 H (0) k/uL Myelocytes # (Manual) 0.22 H (0) k/uL Nucleated RBCs 21 H (0-0) /100 WBC Sodium 136 L 135 L (137-145) mmol/L BUN 26 H 31 H (7-17) mg/dL Creatinine 1.38 H 1.36 H (0.52-1.04) mg/dL Glucose 122 H 102 H (74-99) mg/dL Calcium 8.3 L (8.4-10.2) mg/dL 09/18/23 Range/Units 02:16 WBC 2.9 L (3.8-10.6) k/uL RBC 2.16 L (3.80-5.40) m/uL Hgb 6.4 L* (11.4-16.0) gm/dL Hct 19.9 L* (34.0-46.0) % RDW 18.7 H (11.5-15.5) % Plt Count 40 L (150-450) k/uL Lymphocytes # (Manual) 0.58 L (1.0-4.8) k/uL Metamyelocytes # (Man) (0) k/uL Myelocytes # (Manual) (0) k/uL Nucleated RBCs 33 H (0-0) /100 WBC Sodium (137-145) mmol/L BUN (7-17) mg/dL Creatinine (0.52-1.04) mg/dL Glucose (74-99) mg/dL Calcium (8.4-10.2) mg/dL Comments: CT head/cervical spine and knee xray reviewed CT Scan - head: report reviewed Assessment and Plan (1) Pancytopenia Current Visit: Yes Status: Acute Priority: High Code(s): D61.818 - OTHER PANCYTOPENIA SNOMED Code(s): 129896509 (2) Fall Current Visit: Yes Status: Acute Priority: Medium Code(s): W19.XXXA - UNSPECIFIED FALL, INITIAL ENCOUNTER SNOMED Code(s): 1900791 (3) Right patella fracture Current Visit: Yes Status: Acute Priority: Medium Code(s): S82.001A - UNSP FRACTURE OF RIGHT PATELLA, INIT FOR CLOS FX SNOMED Code(s): 01661281 Plan: Patellar fracture Presented to the emergency room after mechanical fall injuring her right knee and striking her head -On admission CT brain cervical spine was negative for acute intracranial processes negative for acute fracture. Right knee x-ray showed suspected patellar fracture. -Orthopedic surgery has been consulted. -If surgery indicated from orthopedic standpoint, due to persisting anemia/thrombocytopenia and newly diagnosed MDS would recommend transfusing 1 unit PRBC and platelets just prior to scheduled procedure. 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 -Due to noted symptomatic anemia with progressive drop in hemoglobin and platelets. Further workup was obtained following her last visit, which revealed no evidence of iron, vitamin B12, folic acid deficiency, or hemolysis. SPEP and immunnofixation were negative for monoclonal paraproteinemia, with normal K/L ratio. -Given her prior history with AML and allogenic stem cell transplant, bone marrow biopsy was then recommended and was obtained on 09/02/23. 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 Nai Vera on 09/26/23 to further discuss bone marrow results and treatment recommendations -On admission CBC showing pancytopenia, with WBC 3.2, hemoglobin 7.0, and platelets 61,000. Today WBC 2.9, ANC 1.7, hemoglobin 6.4, platelets 40,000. 1 unit PRBCs has been ordered. No reported episodes of acute bleeding. Of note, patient did receive 1 unit PRBCs outpt on 08/28/23, due to symptomatic anemia, with hgb 7.2 -Continue to closely monitor CBC and for s/s of acute bleeding. Please transfuse for hgb less than 7 and for platelets less than 10,000 or if symptomatic. Please transfuse with IRRADIATED blood products attests:I have seen and examined pt, performed H&P, developed impression and plan of care. Discussed with dictator. Agree with documentation, dictated as a scribe.
[2023-09-18] MEDS: SODIUM CHLORIDE 0.9% 1,000 ML IV SCH (18:57)
[2023-09-18] MEDS: SODIUM CHLORIDE 0.9% 1,000 ML BAG IV STA (18:57)
[2023-09-18] MEDS: diphenhydrAMINE 25 MG CAP PO STA (21:21)
[2023-09-18] MEDS: HYDROCORTISONE SUCCINATE 100 MG/2 ML VIAL IV STA (21:22)
[2023-09-18] MEDS: ACETAMINOPHEN TAB 325 MG TAB PO STA (21:22)
[2023-09-19 07:40] LABS: Anisocytosis Slight; HCT 25.9 % (34.0-46.0); Hypochromasia Marked; MCH 28.3 pg (25.0-35.0); MCHC 32.1 g/dL (31.0-37.0); MCV 88.3 fL (80.0-100.0); Poikilocytosis Slight; RBC 2.93 m/uL (3.80-5.40); RDW 18.8 % (11.5-15.5); WBC 3.4 k/uL (3.8-10.6)
[2023-09-19 08:42] LABS: Platelet Count 60 k/uL (150-450)
--- NOTE | 2023-09-19 11:56 | P.CNOR ---
History of Present Illness - [facility] Consult date: 09/18/23 Consult reason: fracture History of present illness: Patient is a pleasant 73-year-old female seen at bedside today. She was admitted through the ED last evening after suffering a fall. Patient was taking out her trash when she lost her balance. She fell onto her right knee, left shoulder and hit her face on the cement. She denies losing consciousness. She was able to get to her phone and call her sister. A neighbor had been walking by and saw her on the ground and assisted her up. She was able to put some weight on the right knee however it was extremely painful. Subsequently it has swollen up pretty well and patient is no longer able to ambulate on it. Patient denies being on any blood thinners. 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 Recently the patient has had low hemoglobin with blood transfusions. Her last transfusion was on August 27. She denies any neck or back pain. No chest pain or difficulty breathing. No headaches or visual changes. No other alleviating, precipitating or modifying factorsFell last evening at home onto right knee. Xray show non-displaced right patella fracture Review of Systems All systems: negative Constitutional: Denies chills, Denies fever Eyes: denies blurred vision, denies pain Ears, nose, mouth and throat: Denies headache, Denies sore throat Cardiovascular: Denies chest pain, Denies shortness of breath Respiratory: Denies cough Gastrointestinal: Denies abdominal pain, Denies diarrhea, Denies nausea, Denies vomiting Genitourinary: Denies dysuria, Denies hematuria Musculoskeletal: Denies myalgias Integumentary: Denies pruritus, Denies rash Neurological: Denies numbness, Denies weakness Psychiatric: Denies anxiety, Denies depression Endocrine: Denies fatigue, Denies weight change 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, lung CA, last blood transfusion was on 08/28/23 History of Any Multi-Drug Resistant Organisms: None Reported Past Surgical History: Orthopedic Surgery, Tonsillectomy Additional Past Surgical History / Comment(s): bone marrow transplant, left ankle surgery with screw, right tib surgery with screw Past Anesthesia/Blood Transfusion Reactions: No Reported Reaction Past Psychological History: No Psychological Hx Reported Smoking Status: Former smoker Past Alcohol Use History: Rare Past Drug Use History: None Reported Medications and Allergies Home Medications Medication Instructions Recorded Confirmed Type Cholecalciferol (Vitamin D3) 50 mcg PO DAILY 09/17/23 09/17/23 History [Vitamin D3 (50 Mcg = 2000 Iu)] Vit C/E/Zn/Coppr/Lutein/Zeaxan 1 cap PO BID 09/17/23 09/17/23 History [Preservision Areds 2 Softgel] HYDROcodone/APAP 5-325MG [Randolph 1 tab PO Q6HR PRN 7 Days #28 tab 09/18/23 Rx 5-325] Allergies Allergy/AdvReac Type Severity Reaction Status Date / Time No Known Allergies Allergy Verified 09/17/23 16:09 Physical Examination Inspection of right lower extremity shows no wounds. Full ROM of knee not tested due to fracture Effusion: Moderate Extension: Full Pain with Forced Extension: No Cande: Stable with firm endpoint MCL: Stable LCL: Stable PCL: Stable with firm endpoint Joint Line Tenderness: Medial Flexion: not tested Pain with Forced Flexion:not tested Calf SNT Hip and ankle painless ROM Neurovascular status: Intact sensation at the lateral, medial and plantar first dorsal web spaces. There is 2+ posterior tibial pulse with brisk capillary refill in all digits Results nondisplaced right patella fracture - Labs Labs: Abnormal Lab Results - Last 24 Hours (Table) 09/17/23 09/17/23 09/17/23 Range/Units 14:13 14:13 20:16 WBC 3.2 L (3.8-10.6) k/uL RBC 2.37 L (3.80-5.40) m/uL Hgb 7.0 L D (11.4-16.0) gm/dL Hct 21.4 L (34.0-46.0) % RDW 18.7 H (11.5-15.5) % Plt Count 61 L (150-450) k/uL Lymphocytes # (Manual) 0.22 L (1.0-4.8) k/uL Metamyelocytes # (Man) 0.03 H (0) k/uL Myelocytes # (Manual) 0.22 H (0) k/uL Nucleated RBCs 21 H (0-0) /100 WBC Sodium 136 L (137-145) mmol/L BUN 26 H (7-17) mg/dL Creatinine 1.38 H (0.52-1.04) mg/dL Glucose 122 H (74-99) mg/dL Calcium 8.3 L (8.4-10.2) mg/dL Crossmatch See Detail Blood Bank Comment Sent to [facility] A Reference Lab Result See BBK REF Reports A 09/18/23 09/18/23 Range/Units 02:16 02:16 WBC 2.9 L (3.8-10.6) k/uL RBC 2.16 L (3.80-5.40) m/uL Hgb 6.4 L* (11.4-16.0) gm/dL Hct 19.9 L* (34.0-46.0) % RDW 18.7 H (11.5-15.5) % Plt Count 40 L (150-450) k/uL Lymphocytes # (Manual) 0.58 L (1.0-4.8) k/uL Metamyelocytes # (Man) (0) k/uL Myelocytes # (Manual) (0) k/uL Nucleated RBCs 33 H (0-0) /100 WBC Sodium 135 L (137-145) mmol/L BUN 31 H (7-17) mg/dL Creatinine 1.36 H (0.52-1.04) mg/dL Glucose 102 H (74-99) mg/dL Calcium (8.4-10.2) mg/dL Crossmatch Blood Bank Comment Reference Lab Result H & H 09/17/23 09/18/23 Range/Units 14:13 02:16 Hgb 7.0 L D 6.4 L* (11.4-16.0) gm/dL Hct 21.4 L 19.9 L* (34.0-46.0) % Coagulation 09/17/23 Range/Units 14:13 INR 1.1 (<1.2) Result Diagrams: 09/19/23 07:32 09/18/23 02:16 - Diagnostic results Knee x-ray: report reviewed, image reviewed Assessment and Plan (1) Right patella fracture Narrative/Plan: Patient has been reviewed with Dr. Oviedo. There are no plans for surgical intervention. Recommend knee immobilizer, ice, pain management, touchdown weightbearing with walker and immobilzer while ambulating at all times. She may F/U in office in one week Current Visit: Yes Status: Acute Priority: Medium Code(s): S82.001A - UNSP FRACTURE OF RIGHT PATELLA, INIT FOR CLOS FX SNOMED Code(s): 58543759 Time with Patient: Less than 30
--- NOTE | 2023-09-19 12:45 | P.PN ---
Subjective Progress Note Date: 09/19/23 Patient resting comfortably in bed. Reports feeling improved today. Ortho has evaluated pt, no plan for surgical intervention, knee immobilizer ordered. S/p 1 unit PRBCs, hgb improved at 8.3. Plan for discharge today Objective - Vital Signs Vital signs: Vital Signs Temp 97.8 F 09/19/23 08:28 Pulse 88 09/19/23 08:28 Resp 15 09/19/23 08:28 BP 112/57 09/19/23 08:28 Pulse Ox 96 09/19/23 08:28 FiO2 Intake & Output 09/18/23 09/19/23 09/19/23 18:59 06:59 18:59 Intake Total 310 Balance 310 Weight 47.627 kg Intake: Blood Product 310 Rc Irr As1 Unit 310 [id number] Other: # Voids 1 3 1 - Constitutional General appearance: Present: no acute distress - EENT Eyes: Present: anicteric sclerae, EOMI ENT: Present: hearing grossly normal - Respiratory Details: breathing is even and unlabored - Cardiovascular Details: well perfused - Gastrointestinal General gastrointestinal: Present: soft. Absent: tenderness - Integumentary Integumentary: Absent: cyanotic, jaundiced - Neurologic Neurologic Comment(s): grossly intact - Musculoskeletal Musculoskeletal: Present: strength equal bilaterally - Psychiatric Psychiatric: Present: A&O x's 3 - Labs CBC & Chem 7: 09/19/23 07:32 09/18/23 02:16 Labs: Abnormal Lab Results - Last 24 Hours (Table) 09/17/23 09/19/23 Range/Units 20:16 07:32 WBC 3.4 L (3.8-10.6) k/uL RBC 2.93 L (3.80-5.40) m/uL Hgb 8.3 L D (11.4-16.0) gm/dL Hct 25.9 L (34.0-46.0) % RDW 18.8 H (11.5-15.5) % Plt Count 60 L (150-450) k/uL Crossmatch See Detail Blood Bank Comment Sent to [facility] A Reference Lab Result See BBK REF Reports A Assessment and Plan (1) Pancytopenia Current Visit: Yes Status: Acute Priority: High Code(s): D61.818 - OTHER PANCYTOPENIA SNOMED Code(s): 540516167 (2) Fall Current Visit: Yes Status: Acute Priority: Medium Code(s): W19.XXXA - UNSPECIFIED FALL, INITIAL ENCOUNTER SNOMED Code(s): 8430859 (3) Right patella fracture Current Visit: Yes Status: Acute Priority: Medium Code(s): S82.001A - UNSP FRACTURE OF RIGHT PATELLA, INIT FOR CLOS FX SNOMED Code(s): 72187945 Plan: Patellar fracture Presented to the emergency room after mechanical fall injuring her right knee and striking her head -On admission CT brain cervical spine was negative for acute intracranial processes negative for acute fracture. Right knee x-ray showed suspected patellar fracture. -Orthopedic surgery has been consulted. No plan for surgical intervention, knee immobilizer has been ordered -If surgery is indicated from an orthopedic standpoint, due to persisting anemia/thrombocytopenia and newly diagnosed MDS would recommend transfusing 1 unit PRBC and platelets just prior to scheduled procedure. 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 -Due to noted symptomatic anemia with progressive drop in hemoglobin and platelets. Further workup was obtained following her last visit, which revealed no evidence of iron, vitamin B12, folic acid deficiency, or hemolysis. SPEP and immunnofixation were negative for monoclonal paraproteinemia, with normal K/L ratio. -Given her prior history with AML and allogenic stem cell transplant, bone marrow biopsy was then recommended and was obtained on 09/02/23. 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 Nai Vera on 09/26/23 to further discuss bone marrow results and treatment recommendations -On admission CBC showing pancytopenia, with WBC 3.2, hemoglobin 7.0, and platelets 61,000. Today WBC 2.9, ANC 1.7, hemoglobin 6.4, platelets 40,000. 1 unit PRBCs has been ordered. No reported episodes of acute bleeding. Of note, patient did receive 1 unit PRBCs outpt on 08/28/23, due to symptomatic anemia, with hgb 7.2 -S/p 1 unit PRBCs, with good response, repeat hgb today 8.3. Plts 60,000, WBC 3.4. -Monitor CBC. Please transfuse for hgb less than 7 and for platelets less than 10,000 or if symptomatic. Please transfuse with IRRADIATED blood products Plan for discharge today. Spoke with admitting team regarding POC. Will schedule CBC recheck for Saturday, and clinic f/u with Dr. Nai Vera on 09/25. Pt is cleared for discharge from hem/onc standpoint, once cleared by IM and other consulted specialities
[2023-09-19 14:59] LABS: HGB 8.3 gm/dL (11.4-16.0)
--- NOTE | 2023-09-19 17:51 | P.PN ---
Progress Note - Text Progress Note Date: 09/19/23 This is a very pleasant 73-year-old female who presented to the emergency department with right knee pain with a recent mechanical fall while walking the garbage to the end of the road in her driveway. Patient did strike her head and shoulder and landed directly on her right knee and reports did not lose consciousness. Neighbors were walking by and has a tight neck community and she also brought her phone with her and called her sister. Patient on the scene was able to get up and stand until she realized trying to get into the house she was having severe pain in her right knee. Patient reports she follows with Dr. 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 Patient reports she had a blood transfusion on 27 August this month. Hemoglobin was noted to be 7.0 with a WBC of 3.2 and platelets were 61 on admission to the ER. This morning's labs repeated showing a hemoglobin of 6.4 with hematocrit of 19.9 currently awaited specialized blood per oncology. Patient also with a mildly elevated creatinine of 1.3 and baseline appears to be 1.0-1.1 and most recently 1.2 in June of this year. Patient underwent other images including CT head and cervical spine showing no acute intracranial process with large left pleural effusion and other pathological process in the left chest with no evidence of cervical spine fracture and noted mild multilevel degenerative disc disease. Left shoulder x-ray showed no acute osseous pathology, right hand negative for any fractures, right knee is suggestive of a patellar fracture and 2 partially-threaded screws in the tibial plateau that are intact with noted soft tissue swelling. Patient was admitted with orthopedics on consult as well as hematology/oncology. September 18: Patient's pain is controlled in the right knee. Immobilizer at the bedside. To be fitted by Ortho. Patient is looking into rehab. mobile home lot utility worker working on the same. Patient elevate lives alone. Was 100% independent prior to fall. Oral intake fair. Spoke with oncology [employer] ADVIS[employer] MANAGER Zeeshan Diane. No further transfusion needed. Patient did receive unit of blood yesterday Active Medications Acetaminophen (Acetaminophen Tab 325 Mg Tab) 650 mg PO Q6HR PRN PRN Reason: Mild Pain or Fever > 100.5 Hydrocodone Bitart/Acetaminophen (Hydrocodone/Apap 5-325mg 1 Each Tab) 1 each PO Q4HR PRN PRN Reason: Pain Artificial Tears (Artificial Tears-Hypromellose Drops 15 Ml Btl) 1 drops BOTH EYES QID PRN PRN Reason: Dry Eye(s) Last Admin: 09/19/23 08:43 Dose: 1 drops Cholecalciferol (Cholecalciferol 25 Mcg (1000 Iu) Tablet) 50 mcg PO DAILY [facility] Last Admin: 09/19/23 08:15 Dose: 50 mcg Sodium Chloride (Saline 0.9%) 1,000 mls @ 75 mls/hr IV .[id number] [facility] Last Admin: 09/19/23 08:15 Dose: 75 mls/hr Melatonin (Melatonin 5 Mg Tablet) 5 mg PO HS [facility] Last Admin: 09/18/23 21:21 Dose: 5 mg Multivitamins/Minerals (Vit A,C & H-Qilnax-Wcbmkhnd 1 Each Tab) 1 each PO BID [facility] Last Admin: 09/19/23 08:15 Dose: 1 each Naloxone HCl (Naloxone 0.4 Mg/Ml 1 Ml Vial) 0.2 mg IV Q2M PRN PRN Reason: Opioid Reversal On examination: VITAL SIGNS: [98.5, 88, 20, 109 x 46, 97% room air] GENERAL APPEARANCE: BMI 17.5, reclining in bed awake not in distress. HEENT: Normal external appearance of nose and ear. Oral cavity normal EYES: Pupils equal. Conjunctiva normal. NECK: JVD not raised. Mass not palpable. RESPIRATORY: Respiratory effort normal. Lungs clear to auscultation. CARDIOVASCULAR: First and second sounds normal. No edema. ABDOMEN: Soft. Liver and spleen not palpable. No tenderness. No mass palpable. PSYCHIATRY: Alert and oriented x3. Mood and affect normal. MUSCULOSKELETAL: OA INVESTIGATIONS, reviewed in the clinical context: September 18: White count 3.4 hemoglobin 8.3 platelets 60 September 17: Sodium 135 potassium 4.8 BUN 31 creatinine 1.36 Hemoglobin 6.4 Assessment and plan: -Mechanical fall with right knee pain-acute right patellar fracture Patient seen by orthopedics Dr. Oviedo.-No surgical intervention. Knee immobilizer. Follow-up outpatient. Touchdown weightbearing with walker. 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 -Due to noted symptomatic anemia with progressive drop in hemoglobin and platelets. Further workup was obtained following her last visit, which revealed no evidence of iron, vitamin B12, folic acid deficiency, or hemolysis. SPEP and immunnofixation were negative for monoclonal paraproteinemia, with normal K/L ratio. -Given her prior history with AML and allogenic stem cell transplant, bone marrow biopsy was then recommended and was obtained on 09/02/23. 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 Nai Vera on 09/26/23 to further discuss bone marrow results and treatment recommendations receive 1 unit PRBCs outpt on 08/28/23, due to symptomatic anemia, with hgb 7.2 transfuse for hgb less than 7 and for platelets less than 10,000 or if symptomatic. Please transfuse with IRRADIATED blood products -Moderate protein calorie malnutrition with a BMI of 17.5 Supplement JOELLE, likely dehydration Full code Looking at rehab placement. mobile home lot utility worker on the case. Discussed with patient. 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
[2023-09-20 11:47] LABS: Anisocytosis Slight; HCT 30.5 % (34.0-46.0); HGB 9.6 gm/dL (11.4-16.0); Hypochromasia Marked; MCH 27.9 pg (25.0-35.0); MCHC 31.6 g/dL (31.0-37.0); MCV 88.3 fL (80.0-100.0); Poikilocytosis Slight; RBC 3.45 m/uL (3.80-5.40); RDW 18.9 % (11.5-15.5)
[2023-09-20 11:49] LABS: Platelet Count 51 k/uL (150-450)
[2023-09-20 12:24] LABS: Eosinophils # (M) 0.11 k/uL (0-0.7); Lymphocytes # (M) 0.61 k/uL (1.0-4.8); Monocytes # (M) 0.83 k/uL (0-1.0); Neutrophils # (M) 3.96 k/uL (1.3-7.7); Neutrophils % (M) 72 %; Nucleated Red Blood Cells 6 /100 WBC (0-0); Total Cells Counted 200; WBC 5.5 k/uL (3.8-10.6)
[2023-09-20 12:25] LABS: Howell-Jolly Bodies Present; Polychromasia Present
--- NOTE | 2023-09-20 17:41 | P.PN ---
Progress Note - Text Progress Note Date: 09/20/23 This is a very pleasant 73-year-old female who presented to the emergency department with right knee pain with a recent mechanical fall while walking the garbage to the end of the road in her driveway. Patient did strike her head and shoulder and landed directly on her right knee and reports did not lose consciousness. Neighbors were walking by and has a tight neck community and she also brought her phone with her and called her sister. Patient on the scene was able to get up and stand until she realized trying to get into the house she was having severe pain in her right knee. Patient reports she follows with Dr. 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 Patient reports she had a blood transfusion on 27 August this month. Hemoglobin was noted to be 7.0 with a WBC of 3.2 and platelets were 61 on admission to the ER. This morning's labs repeated showing a hemoglobin of 6.4 with hematocrit of 19.9 currently awaited specialized blood per oncology. Patient also with a mildly elevated creatinine of 1.3 and baseline appears to be 1.0-1.1 and most recently 1.2 in June of this year. Patient underwent other images including CT head and cervical spine showing no acute intracranial process with large left pleural effusion and other pathological process in the left chest with no evidence of cervical spine fracture and noted mild multilevel degenerative disc disease. Left shoulder x-ray showed no acute osseous pathology, right hand negative for any fractures, right knee is suggestive of a patellar fracture and 2 partially-threaded screws in the tibial plateau that are intact with noted soft tissue swelling. Patient was admitted with orthopedics on consult as well as hematology/oncology. September 18: Patient's pain is controlled in the right knee. Immobilizer at the bedside. To be fitted by Ortho. Patient is looking into rehab. transit worker working on the same. Patient elevate lives alone. Was 100% independent prior to fall. Oral intake fair. Spoke with oncology [employer]IST Zeeshan Diane. No further transfusion needed. Patient did receive unit of blood yesterday September 19:. Comfortable. Eating fair. Pending placement for rehab. Social work is working on the same. Discussed Active Medications Acetaminophen (Acetaminophen Tab 325 Mg Tab) 650 mg PO Q6HR PRN PRN Reason: Mild Pain or Fever > 100.5 Hydrocodone Bitart/Acetaminophen (Hydrocodone/Apap 5-325mg 1 Each Tab) 1 each PO Q4HR PRN PRN Reason: Pain Artificial Tears (Artificial Tears-Hypromellose Drops 15 Ml Btl) 1 drops BOTH EYES QID PRN PRN Reason: Dry Eye(s) Last Admin: 09/20/23 10:09 Dose: 1 drops Cholecalciferol (Cholecalciferol 25 Mcg (1000 Iu) Tablet) 50 mcg PO DAILY [facility] Last Admin: 09/20/23 10:05 Dose: 50 mcg Sodium Chloride (Saline 0.9%) 1,000 mls @ 75 mls/hr IV .[id number] [facility] Last Admin: 09/20/23 10:09 Dose: 75 mls/hr Melatonin (Melatonin 5 Mg Tablet) 5 mg PO HS [facility] Last Admin: 09/19/23 21:46 Dose: 5 mg Multivitamins/Minerals (Vit A,C & U-Yzpkee-Vqmqbhib 1 Each Tab) 1 each PO BID [facility] Last Admin: 09/20/23 10:05 Dose: 1 each Naloxone HCl (Naloxone 0.4 Mg/Ml 1 Ml Vial) 0.2 mg IV Q2M PRN PRN Reason: Opioid Reversal On examination: VITAL SIGNS: 98.2, 86, 16, 115/67, 95% room air GENERAL APPEARANCE: Comfortable in bed HEENT: Normal external appearance of nose and ear. Oral cavity normal EYES: Pupils equal. Conjunctiva normal. NECK: JVD not raised. Mass not palpable. RESPIRATORY: Respiratory effort normal. Lungs clear to auscultation. CARDIOVASCULAR: First and second sounds normal. No edema. ABDOMEN: Soft. Liver and spleen not palpable. No tenderness. No mass palpable. PSYCHIATRY: Alert and oriented x3. Mood and affect normal. MUSCULOSKELETAL: OA INVESTIGATIONS, reviewed in the clinical context: September 19: White count 5.5 hemoglobin 9.6 platelets 51 September 18: White count 3.4 hemoglobin 8.3 platelets 60 September 17: Sodium 135 potassium 4.8 BUN 31 creatinine 1.36 Hemoglobin 6.4 Assessment and plan: -Mechanical fall with right knee pain-acute right patellar fracture Patient seen by orthopedics Dr. Oviedo.-No surgical intervention. Knee immobilizer. Follow-up outpatient. Touchdown weightbearing with walker. 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 -Due to noted symptomatic anemia with progressive drop in hemoglobin and platelets. Further workup was obtained following her last visit, which revealed no evidence of iron, vitamin B12, folic acid deficiency, or hemolysis. SPEP and immunnofixation were negative for monoclonal paraproteinemia, with normal K/L ratio. -Given her prior history with AML and allogenic stem cell transplant, bone marrow biopsy was then recommended and was obtained on 09/02/23. 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 aNi Vera on 09/26/23 to further discuss bone marrow results and treatment recommendations receive 1 unit PRBCs outpt on 08/28/23, due to symptomatic anemia, with hgb 7.2 transfuse for hgb less than 7 and for platelets less than 10,000 or if symptomatic. Please transfuse with IRRADIATED blood products -Moderate protein calorie malnutrition with a BMI of 17.5 Supplement JOELLE, likely dehydration Full code Cussed with patient. Pending rehab placement. 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
--- NOTE | 2023-09-20 19:42 | P.PN ---
Subjective Progress Note Date: 09/20/23 Patient resting comfortably in bed. Reports feeling improved. Ortho has evaluated pt, no plan for surgical intervention, knee immobilizer ordered. Counts stable, WBC 5.5, Hgb 9.6, plts 51,000. Plan is for rehab upon discharge, awaiting placement Objective - Vital Signs Vital signs: Vital Signs Temp 98.2 F 09/20/23 12:06 Pulse 86 09/20/23 12:06 Resp 16 09/20/23 12:06 BP 115/67 09/20/23 12:06 Pulse Ox 95 09/20/23 12:06 FiO2 Intake & Output 09/19/23 09/20/23 09/20/23 18:59 06:59 18:59 Weight 47.627 kg Other: # Voids 2 3 1 # Bowel Movements 1 - Constitutional General appearance: Present: average body habitus, no acute distress - EENT Eyes: Present: anicteric sclerae, EOMI ENT: Present: hearing grossly normal - Respiratory Details: breathing is even and unlabored - Cardiovascular Details: well perfused - Gastrointestinal General gastrointestinal: Present: soft. Absent: tenderness - Integumentary Integumentary: Present: jaundiced. Absent: cyanotic - Neurologic Neurologic Comment(s): grossly intact - Psychiatric Psychiatric: Present: A&O x's 3 - Labs CBC & Chem 7: 09/20/23 11:05 09/18/23 02:16 Labs: Abnormal Lab Results - Last 24 Hours (Table) 09/19/23 09/20/23 Range/Units 07:32 11:05 RBC 3.45 L (3.80-5.40) m/uL Hgb 8.3 L D 9.6 L (11.4-16.0) gm/dL Hct 30.5 L (34.0-46.0) % RDW 18.9 H (11.5-15.5) % Plt Count 51 L (150-450) k/uL Lymphocytes # (Manual) 0.61 L (1.0-4.8) k/uL Nucleated RBCs 6 H (0-0) /100 WBC Assessment and Plan (1) Pancytopenia Current Visit: Yes Status: Acute Priority: High Code(s): D61.818 - OTHER PANCYTOPENIA SNOMED Code(s): 712140428 (2) Fall Current Visit: Yes Status: Acute Priority: Medium Code(s): W19.XXXA - UNSPECIFIED FALL, INITIAL ENCOUNTER SNOMED Code(s): 9273781 (3) Right patella fracture Current Visit: Yes Status: Acute Priority: Medium Code(s): S82.001A - UNSP FRACTURE OF RIGHT PATELLA, INIT FOR CLOS FX SNOMED Code(s): 23722014 Plan: Patellar fracture Presented to the emergency room after mechanical fall injuring her right knee and striking her head -On admission CT brain cervical spine was negative for acute intracranial processes negative for acute fracture. Right knee x-ray showed suspected patellar fracture. -Orthopedic surgery has been consulted. 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 -Due to noted symptomatic anemia with progressive drop in hemoglobin and platelets. Further workup was obtained following her last visit, which revealed no evidence of iron, vitamin B12, folic acid deficiency, or hemolysis. SPEP and immunnofixation were negative for monoclonal paraproteinemia, with normal K/L ratio. -Given her prior history with AML and allogenic stem cell transplant, bone marrow biopsy was then recommended and was obtained on 09/02/23. 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 Nai Vera is scheduled on 09/26/23 to further discuss bone marrow results and treatment recommendations -On admission CBC showing pancytopenia, with WBC 3.2, hemoglobin 7.0, and platelets 61,000. -S/p 1 unit PRBCs for hgb 6.4. Hgb improving, 9.6 today. WBC 5.5, plts 51,000 -Continue to monitor CBC. Please transfuse for hgb less than 7 and for platelets less than 10,000 or if symptomatic. Please transfuse with IRRADIATED blood products only Plan is for discharge to rehab. Treatment will be on hold until discharge. Requested CBC recheck twice weekly Clinic f/u will be rescheduled Pt is cleared for discharge from hem/onc standpoint, once cleared by IM and other consulted specialities attests:I have seen and examined pt, performed H&P, developed impression and plan of care. Discussed with dictator. Agree with documentation, dictated as a scribe.
[2023-09-20] MEDS: ZOLPIDEM 5 MG TAB PO PRN (22:52)
[2023-09-21 13:31] VITALS: BP 109/55; PULSE 93; RESP 16; TEMP 98.5
--- NOTE | 2023-09-21 14:30 | P.DS ---
Providers Date of admission: 09/18/23 15:01 Expected date of discharge: 09/21/23 Attending physician: Christiano Rose Consults: 09/17/23 18:29 Consult Physician Urgent Consulting Provider: Nigel Vera Consult Reason/Comments: anemia, hx aml Do you want consulting provider notified?: Yes Consult Physician Urgent Consulting Provider: Jaziel Oviedo Consult Reason/Comments: right patellar fracture Do you want consulting provider notified?: Yes Primary care physician: Hitesh Bustamante [facility] Course: This is a very pleasant 73-year-old female who [facility] with right knee pain with a recent mechanical fall while walking the garbage to the end of the road in her driveway. Patient did strike her head and shoulder and landed directly on her right knee and reports did not lose consciousness. Neighbors were walking by and has a tight neck community and she also brought her phone with her and called her sister. Patient on the scene was able to get up and stand until she realized trying to get into the house she was having severe pain in her right knee. Patient reports she follows with Dr. 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 Patient reports she had a blood transfusion on 27 August this month. Hemoglobin was noted to be 7.0 with a WBC of 3.2 and platelets were 61 on admission to the ER. This morning's labs repeated showing a hemoglobin of 6.4 with hematocrit of 19.9 currently awaited specialized blood per oncology. Patient also with a mildly elevated creatinine of 1.3 and baseline appears to be 1.0-1.1 and most recently 1.2 in June of this year. Patient underwent other images including CT head and cervical spine showing no acute intracranial process with large left pleural effusion and other pathological process in the left chest with no evidence of cervical spine fracture and noted mild multilevel degenerative disc disease. Left shoulder x-ray showed no acute osseous pathology, right hand negative for any fractures, right knee is suggestive of a patellar fracture and 2 partially-threaded screws in the tibial plateau that are intact with noted soft tissue swelling. Patient was admitted with orthopedics on consult as well as hematology/oncology. September 18: Patient's pain is controlled in the right knee. Immobilizer at the bedside. To be fitted by Ortho. Patient is looking into rehab. tray room worker working on the same. Patient elevate lives alone. Was 100% independent prior to fall. Oral intake fair. Spoke with oncology MANAGER CORPORATE Zeeshan Diane. No further transfusion needed. Patient did receive unit of blood yesterday September 19:. Comfortable. Eating fair. Pending placement for rehab. Social work is working on the same. Discussed September 20: Up in a recliner. Comfortable. Leg in the brace. Has not been requiring pain medications. Family visiting. Patient been accepted for rehab at [facility]. Patient to follow-up with oncology outpatient. After rehab. Treatment will be held while patient is at rehab. Discussion and discharge planning more than 35 minutes On examination: VITAL SIGNS: 98.5, 93, 16, 109 x 655, 97% room air GENERAL APPEARANCE: Up in a recliner HEENT: Normal external appearance of nose and ear. Oral cavity normal EYES: Pupils equal. Conjunctiva normal. NECK: JVD not raised. Mass not palpable. RESPIRATORY: Respiratory effort normal. Lungs clear to auscultation. CARDIOVASCULAR: First and second sounds normal. No edema. ABDOMEN: Soft. Liver and spleen not palpable. No tenderness. No mass palpable. PSYCHIATRY: Alert and oriented x3. Mood and affect normal. MUSCULOSKELETAL: OA. Left leg in a brace INVESTIGATIONS, reviewed in the clinical context: September 19: White count 5.5 hemoglobin 9.6 platelets 51 September 18: White count 3.4 hemoglobin 8.3 platelets 60 September 17: Sodium 135 potassium 4.8 BUN 31 creatinine 1.36 Hemoglobin 6.4 Assessment and plan: -Mechanical fall with right knee pain-acute right patellar fracture Patient seen by orthopedics Dr. Oviedo.-No surgical intervention. Knee immobilizer. Follow-up outpatient. Touchdown weightbearing with walker. 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 -Due to noted symptomatic anemia with progressive drop in hemoglobin and platelets. Further workup was obtained following her last visit, which revealed no evidence of iron, vitamin B12, folic acid deficiency, or hemolysis. SPEP and immunnofixation were negative for monoclonal paraproteinemia, with normal K/L ratio. -Given her prior history with AML and allogenic stem cell transplant, bone marrow biopsy was then recommended and was obtained on 09/02/23. 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 Nai Vera on 09/26/23 to further discuss bone marrow results and treatment recommendations receive 1 unit PRBCs outpt on 08/28/23, due to symptomatic anemia, with hgb 7.2 transfuse for hgb less than 7 and for platelets less than 10,000 or if symptomatic. Please transfuse with IRRADIATED blood products -Moderate protein calorie malnutrition with a BMI of 17.5 Supplement JOELLE, likely dehydration Full code Disposition: [facility] 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, lung CA, last blood transfusion was on 08/28/23 History of Any Multi-Drug Resistant Organisms: None Reported Past Surgical History: Orthopedic Surgery, Tonsillectomy Additional Past Surgical History / Comment(s): bone marrow transplant, left ankle surgery with screw, right tib surgery with screw Past Anesthesia/Blood Transfusion Reactions: No Reported Reaction Past Psychological History: No Psychological Hx Reported Smoking Status: Former smoker Past Alcohol Use History: Rare Past Drug Use History: None Reported Plan - Discharge Summary Discharge Rx Participant: No New Discharge Prescriptions: New Artificial Tears-Hypromellose [Artificial Tear Drops] 1 drops BOTH EYES QID PRN ml PRN Reason: Dry Eye(S) Acetaminophen Tab [Tylenol] 650 mg PO Q6HR PRN tab PRN Reason: Mild Pain Or Fever > 100.5 Continue Cholecalciferol (Vitamin D3) [Vitamin D3 (50 Mcg = 2000 Iu)] 50 mcg PO DAILY Vit C/E/Zn/Coppr/Lutein/Zeaxan [Preservision Areds 2 Softgel] 1 cap PO BID Discharge Medication List Cholecalciferol (Vitamin D3) [Vitamin D3 (50 Mcg = 2000 Iu)] 50 mcg PO DAILY 09/17/23 [History] Vit C/E/Zn/Coppr/Lutein/Zeaxan [Preservision Areds 2 Softgel] 1 cap PO BID 09/17/23 [History] Acetaminophen Tab [Tylenol] 650 mg PO Q6HR PRN tab 09/21/23 [Rx] Artificial Tears-Hypromellose [Artificial Tear Drops] 1 drops BOTH EYES QID PRN ml 09/21/23 [Rx] Follow up Appointment(s)/Referral(s): Hitesh Bustamante DO [Primary Care Provider] - 1-2 days Nigel Vera MD [STAFF PHYSICIAN] - 09/26/23 2:15 pm Jaziel Oviedo MD [STAFF PHYSICIAN] - 1 Week Ambulatory/Diagnostic Orders: Walker w/ Wheels [DME.AMB1] Location: None Selected Activity/Diet/Wound Care/Special Instructions: knee immobilizer on while ambulating with walker at all times touch down weight bearing ice to right knee F/U in office take meds as directed Please request CBC w/ diff twice weekly at Rehab facility
== END 2023-09-21 17:10 | DRG 563 ==
LOC: EC 13:26 → 5NMEDONC 18:31 → OBSVTOIN 09-18 15:01
PROVIDERS: ADMIT Hospitalist; ATTEND Hospitalist
PROC: 30233N1 Transfusion of Nonautologous Red Blood Cells into Peripheral Vein, Percutaneous Approach (ICD-10-PCS; principal; 2023-09-18)
DX: S82.001A Unspecified fracture of right patella, initial encounter for closed fracture (principal); E44.0 Moderate protein-calorie malnutrition; Z68.1 Body mass index [BMI] 19.9 or less, adult; C34.12 Malignant neoplasm of upper lobe, left bronchus or lung; C92.00 Acute myeloblastic leukemia, not having achieved remission; D61.818 Other pancytopenia; N17.9 Acute kidney failure, unspecified; T86.5 Complications of stem cell transplant; D46.9 Myelodysplastic syndrome, unspecified; W19.XXXA Unspecified fall, initial encounter; E86.0 Dehydration; W18.30XA Fall on same level, unspecified, initial encounter; I25.2 Old myocardial infarction; Z75.1 Person awaiting admission to adequate facility elsewhere; Z92.3 Personal history of irradiation; Z71.3 Dietary counseling and surveillance; Z87.891 Personal history of nicotine dependence
CPT/HCPCS: 36415; 70450; 72125; 80048; 80053; 85025; 85027; 85610; 86850; 86870; 86880; 86900; 86901; 86920; 96374; 99291

== ENCOUNTER → 2023-10-01 | Outpatient (CLI) | payer MEDICARE, BC | END | disposition home or self-care (01) | LOC: LABPRL 13:15 | PROVIDERS: ATTEND Family Medicine | DX: E44.0 Moderate protein-calorie malnutrition (principal) | CPT/HCPCS: 80053 ==

== ENCOUNTER 2023-10-10 21:19 | Emergency (ER) | payer MEDICARE, BC ==
[2023-10-11] MEDS ORDERED: PANTOPRAZOLE 40 MG/10 ML VIAL ONE (02:42)
== END 2023-10-11 02:00 | disposition home or self-care (01) ==
LOC: EC 21:19
DX: K92.2 Gastrointestinal hemorrhage, unspecified (principal)
CPT/HCPCS: 86850; 86900; 86901; 99284

== ENCOUNTER 2023-11-04 22:21 | Inpatient (IN) | payer MEDICARE, BC ==
--- NOTE | 2023-11-04 23:26 | ED ---
SOB HPI - General Chief Complaint: Shortness of Breath Stated Complaint: Covid Time Seen by Provider: 11/04/23 22:36 Source: patient, EMS Mode of arrival: EMS Limitations: no limitations - History of Present Illness Initial Comments: Patient is a 73-year-old woman, history of lung cancer, who arrives here from senior care to have evaluation for decreased pulse oximetry readings. The patient states that approximately 8 days ago she started having some cough and congestion. 1 week ago she was diagnosed with having COVID infection. The patient states that she has been having cough since that time. Today lower pulse oximetry readings were noted. Apparently the patient was only reading 90% on 3 L nasal cannula. The patient currently is on nasal cannula oxygen at 4 L and states that her breathing seems comfortable. The patient denies history of oxygen use. Patient denies chest pain. No dyspnea. She has not noted leg swelling or pain. No change in urination or bowel movements. Patient currently at senior care as result of having R patella fracture which there treating with leg immobilization. MD Complaint: shortness of breath, cough Onset/Timin -: hour(s) Severity scale (1-10): 0 Consistency: constant Improves With: oxygen Worsens With: nothing Known History Of: other (Lung cancer) Context: other (Covid) Associated Symptoms: denies other symptoms Treatments Prior to Arrival: oxygen - Related Data Home Oxygen Therapy: No Allergies Allergy/AdvReac Type Severity Reaction Status Date / Time No Known Allergies Allergy Verified 11/05/23 10:06 Review of Systems ROS Statement: Those systems with pertinent positive or pertinent negative responses have been documented in the HPI. ROS Other: All systems not noted in ROS Statement are negative. Constitutional: Denies: fever, chills Respiratory: Reports: as per HPI, cough, dyspnea Cardiovascular: Denies: chest pain, palpitations, edema Gastrointestinal: Denies: abdominal pain, nausea, vomiting Genitourinary: Denies: dysuria, hematuria Musculoskeletal: Reports: as per HPI. Denies: back pain Skin: Denies: rash Neurological: Denies: headache, weakness 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, lung CA, last blood transfusion was on 08/28/23 History of Any Multi-Drug Resistant Organisms: None Reported Past Surgical History: Orthopedic Surgery, Tonsillectomy Additional Past Surgical History / Comment(s): bone marrow transplant, left ankle surgery with screw, right tib surgery with screw Past Anesthesia/Blood Transfusion Reactions: No Reported Reaction Past Psychological History: No Psychological Hx Reported Smoking Status: Former smoker Past Alcohol Use History: Rare Past Drug Use History: None Reported General Exam Limitations: no limitations General appearance: alert, in no apparent distress Head exam: Present: atraumatic, normocephalic Eye exam: Present: normal appearance. Absent: scleral icterus, conjunctival injection Neck exam: Present: normal inspection Respiratory exam: Absent: respiratory distress, wheezes, rales, rhonchi, stridor, accessory muscle use Cardiovascular Exam: Present: regular rate, normal rhythm, normal heart sounds. Absent: systolic murmur, diastolic murmur, rubs, gallop GI/Abdominal exam: Present: soft. Absent: distended, tenderness, guarding, rebound, rigid, mass Extremities exam: Present: normal inspection, normal capillary refill, other (Knee immobilizer right leg). Absent: pedal edema, calf tenderness Back exam: Present: normal inspection. Absent: CVA tenderness (R), CVA tenderness (L) Neurological exam: Present: alert Skin exam: Present: warm, dry, intact, normal color. Absent: rash Course Vital Signs 11/04/23 11/04/23 11/04/23 22:27 22:42 22:46 Temperature 98.5 F Pulse Rate 95 94 Respiratory 16 16 18 Rate Blood Pressure 132/62 O2 Sat by Pulse 94 L 93 L Oximetry 11/05/23 11/05/23 11/05/23 00:00 01:00 02:00 Temperature Pulse Rate 97 87 86 Respiratory 20 16 16 Rate Blood Pressure 130/61 132/64 O2 Sat by Pulse 94 L 93 L 93 L Oximetry 11/05/23 11/05/23 11/05/23 03:00 03:15 06:18 Temperature Pulse Rate 86 91 95 Respiratory 18 17 17 Rate Blood Pressure 126/60 128/58 O2 Sat by Pulse 93 L 93 L 94 L Oximetry 11/05/23 11/05/23 11/05/23 06:34 07:43 08:47 Temperature 98.5 F Pulse Rate 92 Respiratory 18 Rate Blood Pressure 145/75 O2 Sat by Pulse 94 L 89 L Oximetry 11/05/23 11/05/23 11/05/23 10:33 12:00 13:00 Temperature Pulse Rate 94 Respiratory 18 18 18 Rate Blood Pressure 136/66 117/69 115/53 O2 Sat by Pulse 91 L 91 L 95 Oximetry 11/05/23 11/05/23 11/05/23 14:21 16:30 18:54 Temperature Pulse Rate 80 86 78 Respiratory 18 18 18 Rate Blood Pressure 117/57 128/86 116/57 O2 Sat by Pulse 95 96 98 Oximetry 11/05/23 11/05/23 22:33 23:15 Temperature Pulse Rate 88 90 Respiratory 18 18 Rate Blood Pressure 129/65 117/66 O2 Sat by Pulse 96 95 Oximetry Medical Decision Making - Medical Decision Making The patient had CT scan of the chest which I interpreted as negative for acute pulmonary embolism. There is dense opacity of the left upper lobe concerning for lung cancer. There is also a right lower lobe infiltrate cancer versus pneumonia. Was pt. sent in by a medical professional or institution (, PA, [employer], urgent care, hospital, or senior care...) When possible be specific @ -[No] Did you speak to anyone other than the patient for history (EMS, parent, family, police, friend...)? What history was obtained from this source @ -[No] Did you review nursing and triage notes (agree or disagree)? Why? @ -[I reviewed and agree with nursing and triage notes] Were old charts reviewed (outside hosp., previous admission, EMS record, old EKG, old radiological studies, urgent care reports/EKG's, senior care records)? Report findings @ -[No old charts were reviewed] Differential Diagnosis (chest pain, altered mental status, abdominal pain women, abdominal pain men, vaginal bleeding, weakness, fever, dyspnea, syncope, headache, dizziness, GI bleed, back pain, seizure, CVA, palpatations, mental health, musculoskeletal)? @ -[Differential Chest Pain: Stable Angina, Unstable Angina, STEMI, NSTEMI Aortic Dissection, Pneumothorax, Musculoskeletal, Esophageal Spasm GERD, Cholecystitis, Pancreatitis, Zoster, this is not meant to be an all-inclusive list. EKG interpreted by me (3pts min.). @ -[I interpreted as above] X-rays interpreted by me (1pt min.). @ -[None done] CT interpreted by me (1pt min.). @ -[I interpreted as above U/S interpreted by me (1pt. min.). @ -[None done] What testing was considered but not performed or refused? (CT, X-rays, U/S, labs)? Why? @ -[None] What meds were considered but not given or refused? Why? @ -[None] Did you discuss the management of the patient with other professionals (professionals i.e. , PA, [employer], lab, RT, psych nurse, social director, rail washer, teacher, youth corrections officer, case worker)? Give summary @ -[Case discussed with admitting physician and treatment recommendations are incorporated Was smoking cessation discussed for >3mins.? @ -[No] Was critical care preformed (if so, how long)? @ -[yes, 30 minutes Were there social determinants of health that impacted care today? How? (Homelessness, low income, unemployed, alcoholism, drug addiction, transportation, low edu. Level, literacy, decrease access to med. care, long-term, rehab)? @ -[No] Was there de-escalation of care discussed even if they declined (Discuss DNR or withdrawal of care, Hospice)? DNR status @ -[Yes What co-morbidities impacted this encounter? (DM, HTN, Smoking, COPD, CAD, Cancer, CVA, ARF, Chemo, Hep., AIDS, mental health diagnosis, sleep apnea, morbid obesity)? @ -[History of advanced lung cancer. 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 Hospital course, mention meds given and route, prescriptions, significant lab abnormalities, going to OR and other pertinent info. @ -[hospital course] Undiagnosed new problem with uncertain prognosis? @ -[No] Drug Therapy requiring intensive monitoring for toxicity (Heparin, Nitro, In sulin, Cardizem)? @ -[No] Were any procedures done? @ -[No] Diagnosis/symptom? @ -[Lung cancer Acute pneumonia Anemia Leukocytosis, due to MDS versus CML Covid 19 infection Acute, or Chronic, or Acute on Chronic? @ -[Acute Uncomplicated (without systemic symptoms) or Complicated (systemic symptoms)? @ -[Complicated by dyspnea Side effects of treatment? @ -[No] Exacerbation, Progression, or Severe Exacerbation? @ -[No] Poses a threat to life or bodily function? How? (Chest pain, USA, DC, pneumonia, PE, COPD, DKA, ARF, appy, cholecystitis, CVA, Diverticulitis, Homicidal, Suicidal, threat to staff... and all critical care pts) @ -[Yes - Lab Data Result diagrams: 11/09/23 04:27 11/08/23 22:09 Lab Results 11/05/23 11/05/23 11/05/23 Range/Units 00:20 00:20 00:20 WBC 21.0 H (3.8-10.6) k/uL RBC 2.73 L (3.80-5.40) m/uL Hgb 7.7 L D (11.4-16.0) gm/dL Hct 24.2 L (34.0-46.0) % MCV 88.4 (80.0-100.0) fL MCH 28.3 (25.0-35.0) pg MCHC 32.0 (31.0-37.0) g/dL RDW 20.9 H (11.5-15.5) % Plt Count 38 L (150-450) k/uL MPV 19.7 Neutrophils % (Manual) 12 % Band Neuts % (Manual) 12 % Lymphocytes % (Manual) 23 % Monocytes % (Manual) 16 % Eosinophils % (Manual) 1 % Blast Cells % 38 H* % Neutrophils # (Manual) 5.00 (1.3-7.7) k/uL Lymphocytes # (Manual) 4.83 H (1.0-4.8) k/uL Monocytes # (Manual) 3.36 H (0-1.0) k/uL Eosinophils # (Manual) 0.21 (0-0.7) k/uL Blast Cells # (Man) 7.98 H (0) k/uL Nucleated RBCs 30 H (0-0) /100 WBC Manual Slide Review Performed Large Platelets Present Polychromasia Present Hypochromasia Moderate Poikilocytosis Slight Poikilocytosis (manual Present Anisocytosis Moderate Anisocytosis (manual) Present [place] Bodies Present PT 11.1 (10.0-12.5) sec INR 1.0 (<1.2) APTT 22.1 (22.0-30.0) sec D-Dimer 3.79 H (<0.60) mg/L FEU Sodium 130 L (137-145) mmol/L Potassium 4.0 (3.5-5.1) mmol/L Chloride 91 L (98-107) mmol/L Carbon Dioxide 32 H (22-30) mmol/L Anion Gap 7 mmol/L BUN 31 H (7-17) mg/dL Creatinine 0.94 (0.52-1.04) mg/dL Est GFR (CKD-EPI)AfAm 70 (>60 ml/min/1.73 sqM) Est GFR (CKD-EPI)NonAf 61 (>60 ml/min/1.73 sqM) Glucose 132 H (74-99) mg/dL Plasma Lactic Acid Walter (0.7-2.0) mmol/L Calcium 9.1 (8.4-10.2) mg/dL Total Bilirubin 0.7 (0.2-1.3) mg/dL AST 28 (14-36) U/L ALT 23 (4-34) U/L Alkaline Phosphatase 105 (38-126) U/L Troponin I (0.000-0.034) ng/mL NT-Pro-B Natriuret Pep 6880 pg/mL Total Protein 7.0 (6.3-8.2) g/dL Albumin 3.8 (3.5-5.0) g/dL Procalcitonin (0.02-0.50) ng/mL 11/05/23 11/05/23 11/05/23 Range/Units 00:20 00:20 00:20 WBC (3.8-10.6) k/uL RBC (3.80-5.40) m/uL Hgb (11.4-16.0) gm/dL Hct (34.0-46.0) % MCV (80.0-100.0) fL MCH (25.0-35.0) pg MCHC (31.0-37.0) g/dL RDW (11.5-15.5) % Plt Count (150-450) k/uL MPV Neutrophils % (Manual) % Band Neuts % (Manual) % Lymphocytes % (Manual) % Monocytes % (Manual) % Eosinophils % (Manual) % Blast Cells % % Neutrophils # (Manual) (1.3-7.7) k/uL Lymphocytes # (Manual) (1.0-4.8) k/uL Monocytes # (Manual) (0-1.0) k/uL Eosinophils # (Manual) (0-0.7) k/uL Blast Cells # (Man) (0) k/uL Nucleated RBCs (0-0) /100 WBC Manual Slide Review Large Platelets Polychromasia Hypochromasia Poikilocytosis Poikilocytosis (manual Anisocytosis Anisocytosis (manual) [place] Bodies PT (10.0-12.5) sec INR (<1.2) APTT (22.0-30.0) sec D-Dimer (<0.60) mg/L FEU Sodium (137-145) mmol/L Potassium (3.5-5.1) mmol/L Chloride (98-107) mmol/L Carbon Dioxide (22-30) mmol/L Anion Gap mmol/L BUN (7-17) mg/dL Creatinine (0.52-1.04) mg/dL Est GFR (CKD-EPI)AfAm (>60 ml/min/1.73 sqM) Est GFR (CKD-EPI)NonAf (>60 ml/min/1.73 sqM) Glucose (74-99) mg/dL Plasma Lactic Acid Walter 1.0 (0.7-2.0) mmol/L Calcium (8.4-10.2) mg/dL Total Bilirubin (0.2-1.3) mg/dL AST (14-36) U/L ALT (4-34) U/L Alkaline Phosphatase (38-126) U/L Troponin I <0.012 (0.000-0.034) ng/mL NT-Pro-B Natriuret Pep pg/mL Total Protein (6.3-8.2) g/dL Albumin (3.5-5.0) g/dL Procalcitonin 0.40 (0.02-0.50) ng/mL - EKG Data -: EKG Interpreted by Pa EKG shows normal: sinus rhythm (With occasional premature supraventricular complexes, rate 97 bpm), axis (Normal), intervals (Normal), QRS complexes (Normal), ST-T waves (Normal) Rate: normal Disposition Clinical Impression: Anemia, COVID-19, Pneumonia, Lung cancer Disposition: ADMITTED IP TO THIS [facility] Condition: Poor Is patient prescribed a controlled substance at d/c from ED?: No
[2023-11-05 00:43] LABS: Anisocytosis Moderate; HCT 24.2 % (34.0-46.0); Hypochromasia Moderate; MCH 28.3 pg (25.0-35.0); MCV 88.4 fL (80.0-100.0); Mean Platelet Volume 19.7; Poikilocytosis Slight; RBC 2.73 m/uL (3.80-5.40); RDW 20.9 % (11.5-15.5)
[2023-11-05 00:55] LABS: Sodium 130 mmol/L (137-145)
[2023-11-05 00:56] LABS: ALT 23 U/L (4-34); AST 28 U/L (14-36); African American GFR (CKD) 70 (>60 ml/min/1.73 sqM); Albumin 3.8 g/dL (3.5-5.0); Alkaline Phosphatase 105 U/L (38-126); Anion Gap 7 mmol/L; Blood Urea Nitrogen 31 mg/dL (7-17); Calcium 9.1 mg/dL (8.4-10.2); Carbon Dioxide 32 mmol/L (22-30); Chloride 91 mmol/L (98-107); Glucose 132 mg/dL (74-99); Non-African American GFR(CKD) 61 (>60 ml/min/1.73 sqM); Total Bilirubin 0.7 mg/dL (0.2-1.3)
[2023-11-05 01:04] LABS: NT-Pro-B-Type Natriuretic Pept 6880 pg/mL
[2023-11-05 01:27] LABS: Partial Thromboplastin Time 22.1 sec (22.0-30.0); Prothrombin Time 11.1 sec (10.0-12.5)
[2023-11-05 01:58] LABS: HGB 7.7 gm/dL (11.4-16.0); Platelet Count 38 k/uL (150-450)
[2023-11-05 02:24] LABS: Band Neutrophils % 12 %; Neutrophils % (M) 12 %
[2023-11-05 02:27] LABS: Blast Cells # (M) 7.98 k/uL (0); Eosinophils # (M) 0.21 k/uL (0-0.7); Lymphocytes # (M) 4.83 k/uL (1.0-4.8); Monocytes # (M) 3.36 k/uL (0-1.0); Nucleated Red Blood Cells 30 /100 WBC (0-0); Total Cells Counted 200
[2023-11-05 02:28] LABS: Anisocytosis (M) Present; Howell-Jolly Bodies Present; Poikilocytosis (M) Present; Polychromasia Present
[2023-11-05 02:30] LABS: Large Platelets Present
--- NOTE | 2023-11-05 03:21 | CT ---
EXAM: CT Angiography Chest With Intravenous Contrast CLINICAL HISTORY: ITS.REASON CT Reason: low SPO2, possible PE TECHNIQUE: Axial computed tomographic angiography images of the chest with intravenous contrast. CTDI is 13.9 mGy and DLP is 189.4 mGy-cm. This CT exam was performed using one or more of the following dose reduction techniques: automated exposure control, adjustment of the mA and/or kV according to patient size, and/or use of iterative reconstruction technique. MIP reconstructed images were created and reviewed. COMPARISON: No relevant prior studies available. FINDINGS: Pulmonary arteries: Unremarkable. No pulmonary embolism. Aorta: Atherosclerotic changes of the aorta. No thoracic aortic aneurysm. Lungs: Near complete consolidation of the LEFT upper lobe. Additional patchy areas of consolidation in the LEFT lower lobe and RIGHT lung, concerning for multilobar pneumonia. Debris in the LEFT mainstem bronchus, consistent with aspiration. Pleural space: Unremarkable. No significant effusion. No pneumothorax. Heart: Unremarkable. No cardiomegaly. No significant pericardial effusion. No evidence of RV dysfunction. Mediastinum: Cardiomediastinal shift to the LEFT. Bones/joints: Degenerative changes of the spine. No acute fracture. No dislocation. Soft tissues: Unremarkable. Lymph nodes: Unremarkable. No enlarged lymph nodes. IMPRESSION: 1. No pulmonary embolism. 2. Near complete consolidation of the LEFT upper lobe. Additional patchy areas of consolidation in the LEFT lower lobe and RIGHT lung, concerning for multilobar pneumonia. Debris in the LEFT mainstem bronchus, consistent with aspiration.
[2023-11-05] MEDS: AZITHROMYCIN 500 MG TAB PO STA (04:04)
[2023-11-05] MEDS ORDERED: PNEUMONIA PROTOCOL UTILIZED 1 EACH MISC PO PRN (04:14)
[2023-11-05] MEDS: SODIUM CHLORIDE 0.9% 1,000 ML IV SCH (05:27)
--- NOTE | 2023-11-05 07:47 | P.CNPUL ---
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 Patient does follow in the pulmonary office with Dr. Moses. Her oncologist is Dr. Vera. Recently a concern for tumor recurrence/progression. Most recent PET scan performed on 08/15/2023 showing a left apical uptake compatible with neoplasm and stable in appearance from prior examination. New or increasing focal uptake within the left anterior lateral abdominal wall. Scattered heterogenous appearance of uptake within osseous structures may be treatment related. Not currently on any systemic treatment. Of note, patient recently had a fall sustaining a right patellar [facility] While at the outside facility, she did test positive for COVID reportedly on October. Unfortunately, she is progressively become more short of breath, now requiring supplemental oxygen, currently on 4 L/min nasal cannula. She does not chronically wear oxygen. Chest CTA done on arrival ne gative for pulmonary embolism. It did redemonstrate the left upper lobe neoplasm/consolidation along with volume loss. Additional patchy areas of consolidation of the left lower lobe and right lung. Unable to exclude superimposed multilobar pneumonia. CBC: WBC count 21, hemoglobin 7.7, hematocri t 24.2, platelets 38,000. Blast cell high blast cell count. 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 Recently underwent bone marrow biopsy. CMP: Sodium 130, potassium 4, chloride 91, serum bicarb 32, BUN 31, creatinine 0.94, glucose 132. LFTs unremarkable. Troponin less than 0.012. NT proBNP 6880. Patient currently being evaluated in the emergency department, room 11. Patient is currently resting comfortably on 4 L/min nasal cannula. She is demanding she is currently resting comfortably on 4 L/min nasal cannula. No acute respiratory distress. She is frail/cachectic. She states that she has been more short of breath over the last 2 weeks. Reportedly diagnosed with COVID at the outside facility on October. He is previously vaccinated and boosted for COVID. This is her first known infection. Review of Systems Constitutional: Reports fatigue, Reports poor appetite, Reports weight loss, Denies chills, Denies fever Ears, nose, mouth and throat: Reports nasal discharge, Denies dysphagia, Denies headache, Denies post-nasal drip, Denies sinus pain, Denies sinus pressure, Denies sore throat Cardiovascular: Reports dyspnea on exertion, Denies chest pain, Denies edema, Denies leg edema, Denies orthopnea, Denies palpitations, Denies paroxysmal nocturnal dyspnea Respiratory: Reports congestion, Reports dyspnea, Denies cough with sputum, Denies home oxygen, Denies pain on inspiration, Denies wheezing Gastrointestinal: Denies abdominal pain, Denies constipation, Denies diarrhea, Denies nausea, Denies vomiting Genitourinary: Denies dysuria, Denies urinary frequency Musculoskeletal: Reports limitation of motion, Denies leg numbness/tingling Musculoskeletal: right: knee pain, knee stiffness Integumentary: Denies rash Neurological: Denies balance difficulties, Denies change in speech, Denies double vision, Denies headaches, Denies seizures, Denies syncope, Denies tremors, Denies visual changes Psychiatric: Denies anxiety, Denies depression 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, lung CA, last blood transfusion was on 08/28/23 History of Any Multi-Drug Resistant Organisms: None Reported Past Surgical History: Orthopedic Surgery, Tonsillectomy Additional Past Surgical History / Comment(s): bone marrow transplant, left ankle surgery with screw, right tib surgery with screw Past Anesthesia/Blood Transfusion Reactions: No Reported Reaction Past Psychological History: No Psychological Hx Reported Smoking Status: Former smoker Past Alcohol Use History: Rare Past Drug Use History: None Reported Medications and Allergies Home Medications Medication Instructions Recorded Confirmed Type Cholecalciferol (Vitamin D3) 50 mcg PO DAILY 09/17/23 09/17/23 History [Vitamin D3 (50 Mcg = 2000 Iu)] Vit C/E/Zn/Coppr/Lutein/Zeaxan 1 cap PO BID 09/17/23 09/17/23 History [Preservision Areds 2 Softgel] Acetaminophen Tab [Tylenol] 650 mg PO Q6HR PRN tab 09/21/23 Rx Artificial Tears-Hypromellose 1 drops BOTH EYES QID PRN ml 09/21/23 Rx [Artificial Tear Drops] Allergies Allergy/AdvReac Type Severity Reaction Status Date / Time No Known Allergies Allergy Verified 09/17/23 16:09 Physical Exam Vitals: Vital Signs Temp Pulse Resp BP Pulse Ox 11/05/23 06:34 98.5 F 11/05/23 06:18 95 17 128/58 94 L 11/05/23 03:15 91 17 126/60 93 L 11/05/23 03:00 86 18 93 L 11/05/23 02:00 86 16 132/64 93 L 11/05/23 01:00 87 16 93 L 11/05/23 00:00 97 20 130/61 94 L 11/04/23 22:46 18 11/04/23 22:42 94 16 93 L 11/04/23 22:27 98.5 F 95 16 132/62 94 L Intake and Output 11/04/23 11/04/23 11/05/23 14:59 22:59 06:59 Other: Weight 44.452 kg GENERAL EXAM: Alert, 73-year-old female, cachectic/frail, comfortable in no apparent distress. HEAD: Normocephalic and atraumatic EYES: Normal reaction of pupils, equal size. NOSE: Clear with pink turbinates. THROAT: No erythema or exudates. NECK: No masses, no JVD. CHEST: No chest wall deformity. LUNGS: Equal air entry with diminished left upper lobe lung sounds. No crackles, rhonchi, wheezes. On 4 L/min nasal cannula. No conversational dyspnea or accessory muscle use while at rest CVS: S1 and S2 normal with no audible murmur, regular rhythm. No extra heart sounds ABDOMEN: No hepatosplenomegaly, active bowel sounds, no guarding or rigidity. SPINE: No scoliosis or deformity SKIN: No rashes CENTRAL NERVOUS SYSTEM: No focal deficits, tone is normal in all 4 extremities. EXTREMITIES: There is no peripheral edema, clubbing, or cyanosis. Peripheral pulses are intact. Results - Laboratory Findings CBC and BMP: 11/05/23 00:20 11/05/23 00:20 PT/INR, D-dimer PT 11.1 sec (10.0-12.5) 11/05/23 00:20 INR 1.0 (<1.2) 11/05/23 00:20 D-Dimer 3.79 mg/L FEU (<0.60) H 11/05/23 00:20 Abnormal lab findings: Abnormal Labs 11/05/23 11/05/23 11/05/23 00:20 00:20 00:20 WBC 21.0 H RBC 2.73 L Hgb 7.7 L D Hct 24.2 L RDW 20.9 H Plt Count 38 L Blast Cells % 38 H* Lymphocytes # (Manual) 4.83 H Monocytes # (Manual) 3.36 H Blast Cells # (Man) 7.98 H Nucleated RBCs 30 H D-Dimer 3.79 H Sodium 130 L Chloride 91 L Carbon Dioxide 32 H BUN 31 H Glucose 132 H - Diagnostic Findings CT scan - chest: image reviewed Assessment and Plan Assessment: Acute COVID infection, reportedly tested positive 10 days ago at outside facility, chest CTA done on arrival negative for pulmonary embolism. It did redemonstrate the chronic left upper lobe neoplasm/consolidation along with volume loss. Additional patchy areas of consolidation of the left lower lobe and right lung. Unable to exclude superimposed multilobar pneumonia. Acute hypoxemic respiratory failure, secondary to above Acute leukocytosis History of non-small cell lung cancer status post chemoradiation followed by immunotherapy. Follows up with frequent outpatient PET scans. Concern for disease recurrence/progression. Most recent PET scan performed on 08/15/2023 showing a left apical uptake compatible with neoplasm and stable in appearance from prior examination. New or increasing focal uptake within the left anterior lateral abdominal wall. Scattered heterogenous appearance of uptake within osse ous structures may be treatment related. Not currently on any systemic treatment. 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 Continue supportive care Check Cepheid 4 Plex; again PCR positive for COVID at our facility Add Decadron Oncology consulted We will also follow I have personally seen and examined the patient, performed the documentation and the assessment and plan as written. Number of minutes spent on the visit:20 Time with Patient: Greater than 30
--- NOTE | 2023-11-05 09:41 | P.HPIM ---
History of Present Illness Patient is a 73-year-old female was sent in from [facility] as she was having shortness of breath and requiring oxygen about 5 L. Patient was recently diagnosed with COVID and there was no significant improvement because of which patient was sent in here patient had a CT of the chest which did not show any pulmonary embolism but did show infiltrate and consolidation in the left upper lobe and some patchy areas consistent with COVID-19 pneumonia patient is presently on 4 L of oxygen. Patient does have history of squamous cell lung cancer with chemoradiation and immunotherapy patient had history of AML and had stem cell transplant in the past. Patient at baseline will does not use any oxygen at home patient is cachectic thin built. Patient had proBNP of over 6000 but clinically does not appear to be in CHF at this time. Patient has been more short of breath for last couple days. Patient denies any cough at this time. Patient does not have any fever does have highly elevated white count of 21,000. REVIEW OF SYSTEMS: All other systems are negative except those mentioned in the HPI PHYSICAL EXAMINATION: GENERAL: The patient is alert and oriented x3, not in any acute distress. Well developed, well nourished. HEENT: Pupils are round and equally reacting to light. EOMI. No scleral icterus. No conjunctival pallor. Normocephalic, atraumatic. No pharyngeal erythema. No thyromegaly. CARDIOVASCULAR: S1 and S2 present. No murmurs, rubs, or gallops. PULMONARY: Chest is clear to auscultation, no wheezing or crackles. ABDOMEN: Soft, nontender, nondistended, normoactive bowel sounds. No palpable organomegaly. MUSCULOSKELETAL: No joint swelling or deformity. EXTREMITIES: No cyanosis, clubbing, or pedal edema. NEUROLOGICAL: Gross neurological examination did not reveal any focal deficits. SKIN: No rashes. Assessment and plan -Acute hypoxic respiratory failure probably secondary to COVID-19 pneumonia a lthough secondary bacterial cannot be ruled out patient had a left upper lobe neoplasm and consolidation with volume loss. Patient is on antibiotics will obtain procalcitonin level patient clinically does not appear to be in CHF exacerbation. Patient is on Decadron as well as Rocephin and azithromycin at this time -Non-small cell lung cancer status post chemoradiation and immunotherapy. -Hyponatremia: There is a possibility of mild hypovolemic hyponatremia will give a small dose of Lasix. 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, lung CA, last blood transfusion was on 08/28/23 History of Any Multi-Drug Resistant Organisms: None Reported Past Surgical History: Orthopedic Surgery, Tonsillectomy Additional Past Surgical History / Comment(s): bone marrow transplant, left ankle surgery with screw, right tib surgery with screw Past Anesthesia/Blood Transfusion Reactions: No Reported Reaction Past Psychological History: No Psychological Hx Reported Smoking Status: Former smoker Past Alcohol Use History: Rare Past Drug Use History: None Reported Medications and Allergies Home Medications Medication Instructions Recorded Confirmed Type Cholecalciferol (Vitamin D3) 50 mcg PO DAILY 09/17/23 09/17/23 History [Vitamin D3 (50 Mcg = 2000 Iu)] Vit C/E/Zn/Coppr/Lutein/Zeaxan 1 cap PO BID 09/17/23 09/17/23 History [Preservision Areds 2 Softgel] Acetaminophen Tab [Tylenol] 650 mg PO Q6HR PRN tab 09/21/23 Rx Artificial Tears-Hypromellose 1 drops BOTH EYES QID PRN ml 09/21/23 Rx [Artificial Tear Drops] Allergies Allergy/AdvReac Type Severity Reaction Status Date / Time No Known Allergies Allergy Verified 11/05/23 09:41 Physical Exam Vitals: Vital Signs Temp Pulse Resp BP Pulse Ox 11/05/23 08:47 92 18 145/75 89 L 11/05/23 07:43 94 L 11/05/23 06:34 98.5 F 11/05/23 06:18 95 17 128/58 94 L 11/05/23 03:15 91 17 126/60 93 L 11/05/23 03:00 86 18 93 L 11/05/23 02:00 86 16 132/64 93 L 11/05/23 01:00 87 16 93 L 11/05/23 00:00 97 20 130/61 94 L 11/04/23 22:46 18 11/04/23 22:42 94 16 93 L 11/04/23 22:27 98.5 F 95 16 132/62 94 L Intake and Output 11/04/23 11/05/23 11/05/23 22:59 06:59 14:59 Other: Weight 44.452 kg Results CBC & Chem 7: 11/05/23 00:20 11/05/23 00:20 Labs: Abnormal Lab Results - Last 24 Hours (Table) 11/05/23 11/05/23 11/05/23 Range/Units 00:20 00:20 00:20 WBC 21.0 H (3.8-10.6) k/uL RBC 2.73 L (3.80-5.40) m/uL Hgb 7.7 L D (11.4-16.0) gm/dL Hct 24.2 L (34.0-46.0) % RDW 20.9 H (11.5-15.5) % Plt Count 38 L (150-450) k/uL Blast Cells % 38 H* % Lymphocytes # (Manual) 4.83 H (1.0-4.8) k/uL Monocytes # (Manual) 3.36 H (0-1.0) k/uL Blast Cells # (Man) 7.98 H (0) k/uL Nucleated RBCs 30 H (0-0) /100 WBC D-Dimer 3.79 H (<0.60) mg/L FEU Sodium 130 L (137-145) mmol/L Chloride 91 L (98-107) mmol/L Carbon Dioxide 32 H (22-30) mmol/L BUN 31 H (7-17) mg/dL Glucose 132 H (74-99) mg/dL SARS-CoV-2 (PCR) (Not Detectd) 11/05/23 Range/Units 06:18 WBC (3.8-10.6) k/uL RBC (3.80-5.40) m/uL Hgb (11.4-16.0) gm/dL Hct (34.0-46.0) % RDW (11.5-15.5) % Plt Count (150-450) k/uL Blast Cells % % Lymphocytes # (Manual) (1.0-4.8) k/uL Monocytes # (Manual) (0-1.0) k/uL Blast Cells # (Man) (0) k/uL Nucleated RBCs (0-0) /100 WBC D-Dimer (<0.60) mg/L FEU Sodium (137-145) mmol/L Chloride (98-107) mmol/L Carbon Dioxide (22-30) mmol/L BUN (7-17) mg/dL Glucose (74-99) mg/dL SARS-CoV-2 (PCR) Detected A (Not Detectd)
[2023-11-05] MEDS: ASCORBIC ACID 500 MG TAB PO SCH (10:28)
[2023-11-05] MEDS: FAMOTIDINE 20 MG TAB PO SCH (10:28)
[2023-11-05] MEDS: DEXAMETHASONE SOD PHOSPHATE 10 MG/ML 1 ML VIAL IVP SCH (10:28)
[2023-11-05] MEDS: ZINC SULFATE 220 MG CAP PO SCH (10:28)
[2023-11-05] MEDS: FUROSEMIDE 10 MG/ML 2 ML VIAL IV ONE (10:28)
[2023-11-05] MEDS: CHOLECALCIFEROL 125 MCG (5000 IU) TABLET PO SCH (10:28)
[2023-11-05 11:45] LABS: Anisocytosis Moderate; HCT 23.3 % (34.0-46.0); HGB 7.4 gm/dL (11.4-16.0); Hypochromasia Moderate; MCH 28.3 pg (25.0-35.0); MCHC 31.9 g/dL (31.0-37.0); MCV 88.7 fL (80.0-100.0); Mean Platelet Volume 19.3; Poikilocytosis Slight; RBC 2.62 m/uL (3.80-5.40)
[2023-11-05 11:48] LABS: Platelet Count 39 k/uL (150-450)
[2023-11-05 15:43] LABS: Neutrophils % (M) 11 %; Nucleated Red Blood Cells 5 /100 WBC (0-0); Total Cells Counted 200
[2023-11-05 15:44] LABS: Basophils # (M) 0.31 k/uL (0-0.2); Blast Cells # (M) 11.82 k/uL (0); Monocytes # (M) 1.87 k/uL (0-1.0); Neutrophils # (M) 3.42 k/uL (1.3-7.7); WBC 31.1 k/uL (3.8-10.6)
[2023-11-05 15:45] LABS: Howell-Jolly Bodies Present; Large Platelets Present; Polychromasia Present
--- NOTE | 2023-11-05 16:32 | P.CONS ---
History of Present Illness - Reason for Consult Consult date: 11/05/23 Hx MDS/AML Requesting physician: Jeferson Gann - Chief Complaint COVID, SOB - History of Present Illness Ms. 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. She is now following with Dr. Nigel Vera, who was referred for squamous cell carcinoma of the left upper lobe. She had been at her baseline up until the end of December 2021, when she noted increased dyspnea on exertion, which she did not have prior. In addition, she noted a productive cough with nonbloody sputum. When this did not improve with outpatient antibiotics, she was recommended to be admitted for additional inpatient management. Chest x-ray on 01/31/2022 noted 8 cm masslike area of consolidation in the left upper lobe. Subsequent CT scan of the chest on 02/01/2022 noted a 6.3 x 5.7 cm left upper lobe mass with central necrosis and extension to the left lateral pleural surface. No hilar or mediastinal lymphadenopathy was noted. Subcentimeter prevascular space lymph nodes were visualized. She underwent a bronchoscopy with BAL and biopsy on 02/02/2022 with pathology of the left upper lobe brush tip consistent with focal cytologic atypia compatible with squamous cell carcinoma (P 40 positive). Biopsy of the left upper lobe mass revealed peribronchial tissue with acute and chronic inflammation and was not diagnostic for neoplasia. She subsequently underwent a PET/CT on 02/16/2022, which noted a 5.5 cm left upper lobe mass with hypermetabolic uptake (no SUV reported). There was no evidence of hypermetabolic activity in the mediastinal lymph nodes or anywhere outside of the chest. Brain MRI revealed no evidence of intracranial metastases. She was discussed at [facility] multidisciplinary tumor board was evaluated [facility] with both concluding that she is not a candidate for surgical intervention. Moreover, she had bronchoscopy performed on 04/25/2022 at [facility], which noted positive station 4R lymph node with PD-L1 TPS of 25%. Original NGS revealed 2 TP53 mutations with no targetable mutations. 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 She initiated concurrent chemotherapy with carboplatin/paclitaxel and radiation therapy on 05/07/2022. She underwent cycle 6 with Taxol on 06/18/2022 alone due to national shortage of carboplatin, and completed radiation therapy on 06/21/2022. CT chest/abdomen on 06/22/2022 with associated with partial response of the left upper lobe/left suprahilar mass. Following discussion with her transplant team at [facility], she proceeded to cycle 1 of consolidative durvalumab on 07/13/2022 and has since completed cycle 12 of treatment on 05/29/2023. Repeat PET/CT on 06/13/2023 following completion of durvalumab noted persistent FDG avidity with the most uptake at the left lateral aspect more medially. Her case was discussed at [facility] thoracic multidisciplinary tumor board and recommended short follow-up PET/CT. PET/CT on 08/15/2023 noted stable appearance to the left apical FDG avid area. Per my review of imaging, she appears to have less FDG avidity in this region compared to the PET/CT in May 2023. It is unclear what the uptake at the left anterior abdominal wall is, but she denies any abdominal pain with no a bdominal wall lesions on exam. She has having evidence of symptomatic anemia with progressive drop in hemoglobin and platelets. Workup following her last visit revealed no evidence of iron, vitamin B12, folic acid deficiency, or hemolysis. SPEP and immunnofixation negative for monoclonal paraproteinemia, K/L ratio normal. Given her prior history with AML and allogenic stem cell transplant, bone marrow biopsy was scheduled for 09/02/23. 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 Plan is start patient on Dacogen, once she was discharged from rehab Patient presented to the emergency room for progressing SOB. She was diagnosed with COVID on 10/27/23. She has been experiencing cough and progressing SOB and dizziness which caused her to present for further evaluation. On admission D dimer elevated at 3.79. CTA chest was obtained which was negative for PE. Near complete consolidation of the left upper lobe. Additional patchy areas of consolidation in the left lower lobe and right lung, concerning for multilobar pneumonia. Debris's in the left mainstem bronchus consistent with aspiration. Patient has been started on azithromycin and Rocephin. Labs reviewed, WBC 21.0, ANC 5.0, hemoglobin 7.7, platelets 38,000. Differential showing elevated lymphocytes and monocytes. Blast cells 38%. Creatinine 0.94, GFR 61. BNP 6880. Troponin negative. Review of Systems 10 point ROS is negative except as stated in HPI 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, lung CA, last blood transfusion was on 08/28/23 History of Any Multi-Drug Resistant Organisms: None Reported Past Surgical History: Orthopedic Surgery, Tonsillectomy Additional Past Surgical History / Comment(s): bone marrow transplant, left ankle surgery with screw, right tib surgery with screw Past Anesthesia/Blood Transfusion Reactions: No Reported Reaction Past Psychological History: No Psychological Hx Reported Smoking Status: Former smoker Past Alcohol Use History: Rare Past Drug Use History: None Reported Medications and Allergies Home Medications Medication Instructions Recorded Confirmed Type Cholecalciferol (Vitamin D3) 50 mcg PO DAILY 09/17/23 11/05/23 History [Vitamin D3 (50 Mcg = 2000 Iu)] Vit C/E/Zn/Coppr/Lutein/Zeaxan 1 cap PO BID 09/17/23 11/05/23 History [Preservision Areds 2 Softgel] Acetaminophen Tab [Tylenol] 650 mg PO Q6H PRN 11/05/23 11/05/23 History Albuterol Sulfate [Proair 1 puff INHALATION RT-Q4H PRN 11/05/23 11/05/23 History Respiclick] Ascorbic Acid [Vitamin C] 1,000 mg PO DAILY 11/05/23 11/05/23 History Calcium Carbonate [Calcium] 600 mg PO DAILY 11/05/23 11/05/23 History Lactose-Reduced Food [Ensure Plus] 237 ml PO TID@0900,1300,2100 11/05/23 11/05/23 History Melatonin 6 mg PO HS PRN 11/05/23 11/05/23 History Quercetin 250mg 250 mg PO DAILY 11/05/23 11/05/23 History Zinc Gluconate [Zinc] 50 mg PO DAILY 11/05/23 11/05/23 History Allergies Allergy/AdvReac Type Severity Reaction Status Date / Time No Known Allergies Allergy Verified 11/05/23 10:06 Physical Exam Vitals: Vital Signs Temp Pulse Resp BP Pulse Ox 11/05/23 08:47 92 18 145/75 89 L 11/05/23 07:43 94 L 11/05/23 06:34 98.5 F 11/05/23 06:18 95 17 128/58 94 L 11/05/23 03:15 91 17 126/60 93 L 11/05/23 03:00 86 18 93 L 11/05/23 02:00 86 16 132/64 93 L 11/05/23 01:00 87 16 93 L 11/05/23 00:00 97 20 130/61 94 L 11/04/23 22:46 18 11/04/23 22:42 94 16 93 L 11/04/23 22:27 98.5 F 95 16 132/62 94 L Intake and Output 11/04/23 11/05/23 11/05/23 22:59 06:59 14:59 Other: Weight 44.452 kg - Constitutional General appearance: no acute distress - EENT Eyes: anicteric sclerae, EOMI ENT: hearing grossly normal - Respiratory Respiratory: bilateral: rales - Cardiovascular Rhythm: regular - Gastrointestinal General gastrointestinal: soft, tenderness - Integumentary mild bruising to extremities - Musculoskeletal Musculoskeletal: strength equal bilaterally - Psychiatric Psychiatric: A&O x's 3 Results CBC & Chem 7: 11/05/23 11:03 11/05/23 00:20 Labs: Abnormal Lab Results - Last 24 Hours (Table) 11/05/23 11/05/23 11/05/23 Range/Units 00:20 00:20 00:20 WBC 21.0 H (3.8-10.6) k/uL RBC 2.73 L (3.80-5.40) m/uL Hgb 7.7 L D (11.4-16.0) gm/dL Hct 24.2 L (34.0-46.0) % RDW 20.9 H (11.5-15.5) % Plt Count 38 L (150-450) k/uL Blast Cells % 38 H* % Lymphocytes # (Manual) 4.83 H (1.0-4.8) k/uL Monocytes # (Manual) 3.36 H (0-1.0) k/uL Blast Cells # (Man) 7.98 H (0) k/uL Nucleated RBCs 30 H (0-0) /100 WBC D-Dimer 3.79 H (<0.60) mg/L FEU Sodium 130 L (137-145) mmol/L Chloride 91 L (98-107) mmol/L Carbon Dioxide 32 H (22-30) mmol/L BUN 31 H (7-17) mg/dL Glucose 132 H (74-99) mg/dL SARS-CoV-2 (PCR) (Not Detectd) 11/05/23 Range/Units 06:18 WBC (3.8-10.6) k/uL RBC (3.80-5.40) m/uL Hgb (11.4-16.0) gm/dL Hct (34.0-46.0) % RDW (11.5-15.5) % Plt Count (150-450) k/uL Blast Cells % % Lymphocytes # (Manual) (1.0-4.8) k/uL Monocytes # (Manual) (0-1.0) k/uL Blast Cells # (Man) (0) k/uL Nucleated RBCs (0-0) /100 WBC D-Dimer (<0.60) mg/L FEU Sodium (137-145) mmol/L Chloride (98-107) mmol/L Carbon Dioxide (22-30) mmol/L BUN (7-17) mg/dL Glucose (74-99) mg/dL SARS-CoV-2 (PCR) Detected A (Not Detectd) CT scan - chest: report reviewed Assessment and Plan (1) MDS (myelodysplastic syndrome) Current Visit: Yes Status: Acute Priority: High Code(s): D46.9 - MYELODYSPLASTIC SYNDROME, UNSPECIFIED SNOMED Code(s): 140306990 (2) Pneumonia Current Visit: Yes Status: Acute Priority: High Code(s): J18.9 - PNEUMONIA, UNSPECIFIED ORGANISM SNOMED Code(s): 106330021 (3) COVID-19 Current Visit: Yes Status: Acute Priority: High Code(s): U07.1 - COVID-19 SNOMED Code(s): 546169179 (4) Anemia Current Visit: Yes Status: Acute Priority: Medium Code(s): D64.9 - ANEMIA, UNSPECIFIED SNOMED Code(s): 727422211 Plan: COVID, pneumonia: Presented to the emergency room for progressing SOB, cough and dizziness. She was diagnosed with COVID on 10/27/23. -On admission D dimer elevated at 3.79. CTA chest was obtained which was negative for PE. Near complete consolidation of the left upper lobe. Additional patchy areas of consolidation in the left lower lobe and right lung, concerning for multilobar pneumonia. Debris's in the left mainstem bronchus consistent with aspiration. -Patient has been started on azithromycin and Rocephin MDS, hx AML: -Oncology history and plan as dictated in the HPI -Workup in clinic showed no evidence of iron, vitamin B12, folic acid deficiency, or hemolysis. SPEP and immunnofixation negative for monoclonal paraproteinemia, K/L ratio normal. Given her prior history with AML and allogenic stem cell transplant, bone marrow biopsy was scheduled for 09/02/23. 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 -Plan is to start patient on Dacogen, once she is discharged from rehab -WBC 21.0, ANC 5.0, hemoglobin 7.7, platelets 38,000. Differential showing elevated lymphocytes and monocytes. Blast cells 38%. -Blast cells likely reactive to acute condition, will continue to monitor and f/u outpt to repeat CBC once she acutely recovered -Continue to monitor CBC. Transfuse for hgb less than 7 and for plts less than 10,000 or if symptomatic. Irradiated blood products attests:I have seen and examined pt, performed H&P, developed impression and plan of care. Discussed with dictator. Agree with documentation, dictated as a scribe.
[2023-11-05] MEDS: HEPARIN SODIUM,PORCINE 5,000 UNIT/ML 1 ML VIAL SQ SCH (20:23)
[2023-11-06] MEDS: AZITHROMYCIN 500 MG TAB PO SCH (08:18)
--- NOTE | 2023-11-06 09:12 | XR ---
EXAMINATION TYPE: XR chest 1V DATE OF EXAM: 11/06/2023 HISTORY: Shortness of breath. COMPARISON: 07/09/2022 TECHNIQUE: Single view of the chest is submitted. FINDINGS: Demonstrated are scattered senescent parenchymal change. Moderate to large area of consolidation left upper lobe with perihilar infiltrate. The heart is stable. Hilar and mediastinal structures are within normal limits. Degenerative changes are seen of the dorsal spine. IMPRESSION: 1. Moderate to large area of consolidation left upper lobe with perihilar infiltrate.
[2023-11-06 10:40] LABS: Anisocytosis Moderate; HCT 23.2 % (34.0-46.0); HGB 7.2 gm/dL (11.4-16.0); Hypochromasia Marked; MCH 28.9 pg (25.0-35.0); MCHC 31.2 g/dL (31.0-37.0); MCV 92.8 fL (80.0-100.0); Macrocytosis Slight; Mean Platelet Volume 17.8; RDW 20.9 % (11.5-15.5)
[2023-11-06 10:46] LABS: BUN/Creat Ratio 26.36 Ratio (12.00-20.00); Calcium 8.4 mg/dL (8.7-10.3); Chloride 97 mmol/L (96-109); Glucose 100 mg/dL (70-110); Potassium 3.7 mmol/L (3.5-5.5); Sodium 139 mmol/L (135-145)
[2023-11-06 10:47] LABS: Magnesium 2.1 mg/dL (1.5-2.4)
[2023-11-06 11:05] LABS: Platelet Count 34 k/uL (150-450)
[2023-11-06 12:08] LABS: Metamyelocytes % 1 %; Myelocytes % 4 %; Neutrophils % (M) 21 %; Nucleated Red Blood Cells 10 /100 WBC (0-0); Total Cells Counted 200
[2023-11-06 12:09] LABS: Blast Cells # (M) 14.19 k/uL (0); Eosinophils # (M) 0.69 k/uL (0-0.7); Lymphocytes # (M) 5.88 k/uL (1.0-4.8); Metamyelocytes # (M) 0.35 k/uL (0); Monocytes # (M) 5.54 k/uL (0-1.0); Myelocytes # (M) 1.38 k/uL (0); Neutrophils # (M) 7.27 k/uL (1.3-7.7); Polychromasia Present; WBC 34.6 k/uL (3.8-10.6)
[2023-11-06 12:10] LABS: Howell-Jolly Bodies Present; Large Platelets Present; Poikilocytosis (M) Present
--- NOTE | 2023-11-06 13:59 | P.PN ---
Subjective Progress Note Date: 11/06/23 Patient is a 73-year-old white female with past medical history significant for squamous cell lung cancer status post chemoradiation and immunotherapy, AML status post allogenic stem cell transplant, pmrdh-[id number]-fnud disease, COPD. Patient does follow in the pulmonary office with Dr. Moses. Her oncologist is Dr. Vera. Recently a concern for tumor recurrence/progression. Most recent PET scan performed on 08/15/2023 showing a left apical uptake compatible with neoplasm and stable in appearance from prior examination. New or increasing focal uptake within the left anterior lateral abdominal wall. Scattered heterogenous appearance of uptake within osseous structures may be treatment related. Not currently on any systemic treatment. Of note, patient recently had a fall sustaining a right patellar fracture, [facility] While at the outside facility, she did test positive for COVID reportedly on October. Unfortunately, she is progressively become more short of breath, now requiring supplemental oxygen, currently on 4 L/min nasal cannula. She does not chronically wear oxygen. Chest CTA done on arrival negative for pulmonary embolism. It did redemonstrate the left upper lobe neoplasm/consolidation along with volume loss. Additional patchy areas of consolidation of the left lower lobe and right lung. Unable to exclude superimposed multilobar pneumonia. CBC: WBC count 21, hemoglobin 7.7, hematocrit 24.2, platelets 38,000. Blast cell high blast cell count. 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 Recently underwent bone marrow biopsy. CMP: Sodium 130, potassium 4, chloride 91, serum bicarb 32, BUN 31, creatinine 0.94, glucose 132. LFTs unremarkable. Troponin less than 0.012. NT proBNP 6880. Patient currently being evaluated in the emergency department, room 11. Patient is currently resting comfortably on 4 L/min nasal cannula. She is demanding she is currently resting comfortably on 4 L/min nasal cannula. No acute respiratory distress. She is frail/cachectic. She states that she has been more short of breath over the last 2 weeks. Reportedly diagnosed with COVID at the outside facility on October. He is previously vaccinated and boosted for COVID. This is her first known infection. The patient is seen today November 06, 2023 in follow-up on the regular medical floor. She is currently sitting up in bed. Awake and alert in no acute distress. Denies any worsening shortness of breath, cough or congestion. She is feeling a bit better today compared to yesterday. She is maintaining good O2 saturations in the 90s on 4 L/min per nasal cannula. She is afebrile. Hemodynamically stable. Blood culture revealing no growth to date. White count 34.6. Hemoglobin 7.2. Platelets 34,000. Sodium 139. Potassium 3.7. Bicarb 30. BUN 29. Creatinine 1.1. Glucose 100. She is continued on Decadron, vitamin supplements. Heparin for DVT prophylaxis. Procalcitonin was 0.4. Cef triaxone has been discontinued. She is completing a course of azithromycin. Objective - Vital Signs Vital signs: Vital Signs Temp 97.9 F 11/06/23 13:48 Pulse 91 11/06/23 13:48 Resp 17 11/06/23 13:48 BP 92/57 11/06/23 13:48 Pulse Ox 93 L 11/06/23 13:48 FiO2 Intake & Output 11/05/23 11/06/23 11/06/23 18:59 06:59 18:59 Intake Total 240 Balance 240 Weight 44.452 kg Intake: Oral 240 Other: Voiding Method External Catheter External Catheter # Voids 1 - Exam GENERAL EXAM: Alert, pleasant 73-year-old female, cachectic/frail, resting in bed, on 4 L nasal cannula, comfortable in no apparent distress. HEAD: Normocephalic and atraumatic EYES: Normal reaction of pupils, equal size. NOSE: Clear with pink turbinates. THROAT: No erythema or exudates. NECK: No masses, no JVD. CHEST: No chest wall deformity. LUNGS: Equal air entry with diminished left upper lobe lung sounds. No crackles, rhonchi, wheezes. No conversational dyspnea CVS: S1 and S2 normal with no audible murmur, regular rhythm. No extra heart sounds ABDOMEN: No hepatosplenomegaly, active bowel sounds, no guarding or rigidity. SPINE: No scoliosis or deformity SKIN: No rashes CENTRAL NERVOUS SYSTEM: No focal deficits, tone is normal in all 4 extremities. EXTREMITIES: There is no peripheral edema, clubbing, or cyanosis. Peripheral pulses are intact. - Labs CBC & Chem 7: 11/06/23 06:52 11/06/23 06:52 Labs: Abnormal Lab Results - Last 24 Hours (Table) 11/05/23 11/06/23 11/06/23 Range/Units 11:03 06:52 06:52 WBC 31.1 H 34.6 H (3.8-10.6) k/uL RBC 2.50 L (3.80-5.40) m/uL Hgb 7.2 L (11.4-16.0) gm/dL Hct 23.2 L (34.0-46.0) % RDW 20.9 H (11.5-15.5) % Plt Count 34 L (150-450) k/uL Blast Cells % 38 H* 41 H* % Lymphocytes # (Manual) 14.00 H 5.88 H (1.0-4.8) k/uL Monocytes # (Manual) 1.87 H 5.54 H (0-1.0) k/uL Basophils # (Manual) 0.31 H (0-0.2) k/uL Metamyelocytes # (Man) 0.35 H (0) k/uL Myelocytes # (Manual) 1.38 H (0) k/uL Blast Cells # (Man) 11.82 H 14.19 H (0) k/uL Nucleated RBCs 5 H 10 H (0-0) /100 WBC BUN 29.0 H (9.0-27.0) mg/dL Est GFR (CKD-EPI) 53 L (>=60) BUN/Creatinine Ratio 26.36 H (12.00-20.00) Ratio Calcium 8.4 L (8.7-10.3) mg/dL Microbiology - Last 24 Hours (Table) 11/05/23 04:00 Blood Culture - Preliminary Blood Assessment and Plan Assessment: Acute COVID infection, reportedly tested positive 10 days ago at outside facility, chest CTA done on arrival negative for pulmonary embolism. It did redemonstrate the chronic left upper lobe neoplasm/consolidation along with volume loss. Additional patchy areas of consolidation of the left lower lobe and right lung. Unable to exclude superimposed multilobar pneumonia. Procalcitonin was negative at 0.4. Rocephin discontinued. Acute hypoxemic respiratory failure, secondary to above Acute leukocytosis History of non-small cell lung cancer status post chemoradiation followed by immunotherapy. Follows up with frequent outpatient PET scans. Concern for disease recurrence/progression. Most recent PET scan performed on 08/15/2023 showing a left apical uptake compatible with neoplasm and stable in appearance from prior examination. New or increasing focal uptake within the left anterior lateral abdominal wall. Scattered heterogenous appearance of uptake within osseous structures may be treatment related. Not currently on any systemic treatment. Chronic obstructive pulmonary disease, stable History of AML, status post allogenic stem cell transplant History of bbehb-zitbko-aoml disease Bicytopenia, underwent recent bone marrow biopsy, consistent with MDS, peripheral blast cells are elevated possibly related to acute illness Plan: The patient was seen and evaluated Labs and medications reviewed Procalcitonin 0.4 Rocephin discontinued Continue vitamin supplements, Decadron Stable and on 4 L nasal cannula Titrate down the FiO2 as tolerated We will continue to follow I have personally seen and examined the patient, performed the documentation and the assessment and plan as written. Number of minutes spent on the visit: 10.
[2023-11-06 14:31] VITALS: BMI 16.8
--- NOTE | 2023-11-06 19:49 | P.PN ---
Subjective Progress Note Date: 11/06/23 No acute events. Pt reporting improvement in breathing. Hgb 7.2, WBC 34.6, plt 34. Blast cells 41. Pt afebrile, SPO2 92% on 4L Objective - Vital Signs Vital signs: Vital Signs Temp 98.6 F 11/06/23 07:45 Pulse 92 11/06/23 07:45 Resp 17 11/06/23 07:45 BP 131/66 11/06/23 07:45 Pulse Ox 93 L 11/06/23 12:51 FiO2 Intake & Output 11/05/23 11/06/23 11/06/23 18:59 06:59 18:59 Weight 44.452 kg Other: Voiding Method External Catheter External Catheter # Voids 1 - Constitutional General appearance: Present: no acute distress - EENT Eyes: Present: anicteric sclerae, EOMI ENT: Present: hearing grossly normal - Respiratory Details: breathing is even and unlabored - Cardiovascular Details: skin warm and dry - Integumentary Integumentary: Absent: cyanotic - Musculoskeletal Musculoskeletal: Present: strength equal bilaterally - Psychiatric Psychiatric: Present: A&O x's 3 - Labs CBC & Chem 7: 11/06/23 06:52 11/06/23 06:52 Labs: Abnormal Lab Results - Last 24 Hours (Table) 11/05/23 11/06/23 11/06/23 Range/Units 11:03 06:52 06:52 WBC 31.1 H 34.6 H (3.8-10.6) k/uL RBC 2.50 L (3.80-5.40) m/uL Hgb 7.2 L (11.4-16.0) gm/dL Hct 23.2 L (34.0-46.0) % RDW 20.9 H (11.5-15.5) % Plt Count 34 L (150-450) k/uL Blast Cells % 38 H* 41 H* % Lymphocytes # (Manual) 14.00 H 5.88 H (1.0-4.8) k/uL Monocytes # (Manual) 1.87 H 5.54 H (0-1.0) k/uL Basophils # (Manual) 0.31 H (0-0.2) k/uL Metamyelocytes # (Man) 0.35 H (0) k/uL Myelocytes # (Manual) 1.38 H (0) k/uL Blast Cells # (Man) 11.82 H 14.19 H (0) k/uL Nucleated RBCs 5 H 10 H (0-0) /100 WBC BUN 29.0 H (9.0-27.0) mg/dL Est GFR (CKD-EPI) 53 L (>=60) BUN/Creatinine Ratio 26.36 H (12.00-20.00) Ratio Calcium 8.4 L (8.7-10.3) mg/dL Microbiology - Last 24 Hours (Table) 11/05/23 04:00 Blood Culture - Preliminary Blood Assessment and Plan (1) MDS (myelodysplastic syndrome) Current Visit: Yes Status: Acute Priority: High Code(s): D46.9 - MYELODYSPLASTIC SYNDROME, UNSPECIFIED SNOMED Code(s): 474206724 (2) Pneumonia Current Visit: Yes Status: Acute Priority: High Code(s): J18.9 - PNEUMONIA, UNSPECIFIED ORGANISM SNOMED Code(s): 082930975 (3) COVID-19 Current Visit: Yes Status: Acute Priority: High Code(s): U07.1 - COVID-19 SNOMED Code(s): 205045969 (4) Anemia Current Visit: Yes Status: Acute Priority: Medium Code(s): D64.9 - ANEMIA, UNSPECIFIED SNOMED Code(s): 361645261 Plan: COVID, pneumonia: Presented to the emergency room for progressing SOB, cough and dizziness. She was diagnosed with COVID on 10/27/23. -On admission D dimer elevated at 3.79. CTA chest was obtained which was negative for PE. Near complete consolidation of the left upper lobe. Additional patchy areas of consolidation in the left lower lobe and right lung, concerning for multilobar pneumonia. Debris's in the left mainstem bronchus consistent with aspiration. -Patient has been started on azithromycin and Rocephin -Blood cultures negative thus far. Sputum culture pending -Showing improvement in SOB/CASEY MDS, hx AML: -Oncology history and plan as dictated in the HPI -Workup in clinic showed no evidence of iron, vitamin B12, folic acid deficiency, or hemolysis. SPEP and immunnofixation negative for monoclonal paraproteinemia, K/L ratio normal. Given her prior history with AML and allogenic stem cell transplant, bone marrow biopsy was scheduled for 09/02/23. 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 -Plan is to start patient on Dacogen, once she is discharged from rehab -Admit labs show WBC 21.0, ANC 5.0, hemoglobin 7.7, platelets 38,000. Differential showing elevated lymphocytes and monocytes. Blast cells 38%. -Blast cells likely reactive to acute condition, will continue to monitor and f/u outpt to repeat CBC once she acutely recovered -Continue to monitor CBC. Transfuse for hgb less than 7 and for plts less than 10,000 or if symptomatic. Irradiated blood products attests:I have seen and examined pt, performed H&P, developed impression and plan of care. Discussed with dictator. Agree with documentation, dictated as a scribe.
--- NOTE | 2023-11-06 22:59 | P.PN ---
Progress Note - Text Progress Note Date: 11/06/23 Patient is a 73-year-old female was sent in from [facility] as she was having shortness of breath and requiring oxygen about 5 L. Patient was recently diagnosed with COVID and there was no significant improvement because of which patient was sent in here patient had a CT of the chest which did not show any pulmonary embolism but did show infiltrate and consolidation in the left upper lobe and some patchy areas consistent with COVID-19 pneumonia patient is presently on 4 L of oxygen. Patient does have history of squamous cell lung cancer with chemoradiation and immunotherapy patient had history of AML and had stem cell transplant in the past. Patient at baseline will does not use any oxygen at home patient is cachectic thin built. Patient had proBNP of over 6000 but clinically does not appear to be in CHF at this time. Patient has been more short of breath for last couple days. Patient denies any cough at this time. Patient does not have any fever does have highly elevated white count of 21,000. November 05: Laying in bed. Cough. Decreased appetite. Tired. Added incentive spirometry. Have the patient sit up in a chair. Active Medications Ascorbic Acid (Ascorbic Acid 500 Mg Tab) 500 mg PO DAILY [facility] Last Admin: 11/06/23 08:18 Dose: 500 mg Azithromycin (Azithromycin 500 Mg Tab) 500 mg PO DAILY [facility]; Protocol Stop: 11/07/23 09:01 Last Admin: 11/06/23 08:18 Dose: 500 mg Cholecalciferol (Cholecalciferol 125 Mcg (5000 Iu) Tablet) 125 mcg PO DAILY [facility] Last Admin: 11/06/23 08:18 Dose: 125 mcg Dexamethasone Sodium Phosphate (Dexamethasone Sod Phosphate 10 Mg/Ml 1 Ml Vial) 6 mg IVP DAILY [facility] Last Admin: 11/06/23 08:18 Dose: 6 mg Famotidine (Famotidine 20 Mg Tab) 20 mg PO DAILY [facility] Last Admin: 11/06/23 08:18 Dose: 20 mg Heparin Sodium (Porcine) (Heparin Sodium,Porcine 5,000 Unit/Ml 1 Ml Vial) 5,000 unit SQ Q12HR [facility] Last Admin: 11/06/23 20:12 Dose: 5,000 unit Sodium Chloride (Saline 0.9%) 1,000 mls @ 20 mls/hr IV .Q24H [facility] Last Admin: 11/06/23 06:46 Dose: 20 mls/hr Miscellaneous Information ([facility]neumonia [facility] each PO ONCE PRN PRN Reason: Per Protocol Zinc Sulfate (Zinc Sulfate 220 Mg Cap) 220 mg PO DAILY [facility] Last Admin: 11/06/23 08:18 Dose: 220 mg On examination: VITAL SIGNS: [98.4, 91, 19, 101 x 60, 96% on 4 L] GENERAL APPEARANCE: Bed, tired. HEENT: Normal external appearance of nose and ear. Oral cavity normal EYES: Pupils equal. Conjunctiva normal. NECK: JVD not raised. Mass not palpable. RESPIRATORY: Respiratory effort increased, decreased breath sound. Some basal crackles right base. CARDIOVASCULAR: First and second sounds normal. No edema. ABDOMEN: Soft. Liver and spleen not palpable. No tenderness. No mass palpable. PSYCHIATRY: Alert and oriented x3. Mood and affect normal. INVESTIGATIONS, reviewed in the clinical context: November 05: White count 34.6 hemoglobin 7.2 platelets 34 blast cells 41 potassium 3.7 BUN 29 creatinine 1.1 COVID PCR: Positive Chest x-ray: Moderate to large area of consolidation left upper lobe with perihilar infiltrate Chest CT: Near complete consolidation of the left upper lobe. Additional patchy areas of consolidation left lower lobe and right lung. Debris in left mainstem bronchus. Assessment and plan -Acute hypoxic respiratory failure probably secondary to COVID-19 p pneumonitis in a prior setting of left upper lobe neoplasm and consolidation with volume loss. Pneumonia ruled out because of negative procalcitonin Zithromax -Acute COVID-19 pneumonitis causing hypoxia Decadron changed to p.o. - -Non-small cell lung cancer status post chemoradiation and immunotherapy. -Hyponatremia: There is a possibility of mild hypovolemic hyponatremia -COPD Albuterol -AML status post allogenic stem cell transplant Per hematology blast cells felt to be reactive to acute infection -Bicytopenia Follow with nephrology. For irradiated blood products -Myelodysplastic syndrome Being followed by hematology -Leukocytosis due to assessment #1 -Chronic kidney disease stage 2 likely nephrosclerosis Has the patient sit up in a chair. Incentive spirometry. Other medications to continue. 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, lung CA, last blood transfusion was on 08/28/23 History of Any Multi-Drug Resistant Organisms: None Reported Past Surgical History: Orthopedic Surgery, Tonsillectomy Additional Past Surgical History / Comment(s): bone marrow transplant, left ankle surgery with screw, right tib surgery with screw Past Anesthesia/Blood Transfusion Reactions: No Reported Reaction Past Psychological History: No Psychological Hx Reported Smoking Status: Former smoker Past Alcohol Use History: Rare Past Drug Use History: None Reported Medications and Allergies Home Medications Medication Instructions Recorded Confirmed Type Cholecalciferol (Vitamin D3) 50 mcg PO DAILY 09/17/23 09/17/23 History [Vitamin D3 (50 Mcg = 2000 Iu)] Vit C/E/Zn/Coppr/Lutein/Zeaxan 1 cap PO BID 09/17/23 09/17/23 History [Preservision Areds 2 Softgel] Acetaminophen Tab [Tylenol] 650 mg PO Q6HR PRN tab 09/21/23 Rx Artificial Tears-Hypromellose 1 drops BOTH EYES QID PRN ml 09/21/23 Rx [Artificial Tear Drops] Allergies Allergy/AdvReac Type Severity Reaction Status Date / Time No Known Allergies Allergy Verified 11/05/23 09:41 Physical Exam Vitals: Vital Signs Temp Pulse Resp BP Pulse Ox 11/05/23 08:47 92 18 145/75 89 L 11/05/23 07:43 94 L 11/05/23 06:34 98.5 F 11/05/23 06:18 95 17 128/58 94 L 11/05/23 03:15 91 17 126/60 93 L 11/05/23 03:00 86 18 93 L 11/05/23 02:00 86 16 132/64 93 L 11/05/23 01:00 87 16 93 L 11/05/23 00:00 97 20 130/61 94 L 11/04/23 22:46 18 11/04/23 22:42 94 16 93 L 11/04/23 22:27 98.5 F 95 16 132/62 94 L Intake and Output 11/04/23 11/05/23 11/05/23 22:59 06:59 14:59 Other: Weight 44.452 kg Results CBC & Chem 7: 11/05/23 00:20 11/05/23 00:20 Labs: Abnormal Lab Results - Last 24 Hours (Table) 11/05/23 11/05/23 11/05/23 Range/Units 00:20 00:20 00:20 WBC 21.0 H (3.8-10.6) k/uL RBC 2.73 L (3.80-5.40) m/uL Hgb 7.7 L D (11.4-16.0) gm/dL Hct 24.2 L (34.0-46.0) % RDW 20.9 H (11.5-15.5) % Plt Count 38 L (150-450) k/uL Blast Cells % 38 H* % Lymphocytes # (Manual) 4.83 H (1.0-4.8) k/uL Monocytes # (Manual) 3.36 H (0-1.0) k/uL Blast Cells # (Man) 7.98 H (0) k/uL Nucleated RBCs 30 H (0-0) /100 WBC D-Dimer 3.79 H (<0.60) mg/L FEU Sodium 130 L (137-145) mmol/L Chloride 91 L (98-107) mmol/L Carbon Dioxide 32 H (22-30) mmol/L BUN 31 H (7-17) mg/dL Glucose 132 H (74-99) mg/dL SARS-CoV-2 (PCR) (Not Detectd) 11/05/23 Range/Units 06:18 WBC (3.8-10.6) k/uL RBC (3.80-5.40) m/uL Hgb (11.4-16.0) gm/dL Hct (34.0-46.0) % RDW (11.5-15.5) % Plt Count (150-450) k/uL Blast Cells % % Lymphocytes # (Manual) (1.0-4.8) k/uL Monocytes # (Manual) (0-1.0) k/uL Blast Cells # (Man) (0) k/uL Nucleated RBCs (0-0) /100 WBC D-Dimer (<0.60) mg/L FEU Sodium (137-145) mmol/L Chloride (98-107) mmol/L Carbon Dioxide (22-30) mmol/L BUN (7-17) mg/dL Glucose (74-99) mg/dL SARS-CoV-2 (PCR) Detected A (Not Detectd)
[2023-11-07] MEDS ORDERED: ALBUTEROL HFA INHALER INHALATION SCH (08:00)
[2023-11-07] MEDS: dexAMETHasone 2 MG TAB PO SCH (08:23)
[2023-11-07] MEDS: ENOXAPARIN 40 MG/0.4 ML SYRINGE SQ SCH (08:24)
[2023-11-07] MEDS: ALBUTEROL HFA INHALER INHALATION SCH (09:39)
[2023-11-07 11:45] LABS: Anisocytosis (M) 2+; Basophils # (M) 0 X 10*3/uL (0.00-0.10); Blast Cells # (M) 23.26 k/uL (0); Elliptocytes 2+; Eosinophils # (M) 0 X 10*3/uL (0.04-0.35); HGB 7.1 g/dL (12.0-15.0); Immature Platelet Fraction 31.8 % (1.1-6.1); Lymphocytes # (M) 4.45 X 10*3/uL (0.90-5.00); MCH 28.9 pg (27.0-32.0); MCHC 29.6 g/dL (32.0-37.0); MCV 97.6 FL (80.0-97.0); Metamyelocytes % 1 % (0-0); Monocytes # (M) 8.41 X 10*3/uL (0.20-1.00); Myelocytes % 2 % (0-0); NRBC Per 100 WBC 5.13 X 10*3/uL (0.00-0.01); Neutrophils # (M) 11.38 X 10*3/uL (1.80-7.70); Neutrophils % (M) 23 %; Platelet Count 25 X 10*3/uL (140-440); Promyelocytes # (M) 0.49 k/uL (0); Promyelocytes % 1 %; RBC 2.46 X 10*6/uL (4.10-5.20); RDW 21.6 % (11.5-14.5); WBC 49.48 X 10*3/uL (4.50-10.00)
--- NOTE | 2023-11-07 13:00 | P.PN ---
Subjective Progress Note Date: 11/07/23 Patient is a 73-year-old white female with past medical history significant for squamous cell lung cancer status post chemoradiation and immunotherapy, AML status post allogenic stem cell transplant, bllfi-xursli-ynre disease, COPD. Patient does follow in the pulmonary office with Dr. Moses. Her oncologist is Dr. Vera. Recently a concern for tumor recurrence/progression. Most recent PET scan performed on 08/15/2023 showing a left apical uptake compatible with neoplasm and stable in appearance from prior examination. New or increasing focal uptake within the left anterior lateral abdominal wall. Scattered heterogenous appearance of uptake within osseous structures may be treatment related. Not currently on any systemic treatment. Of note, patient recently had a fall sustaining a right patellar fracture, [facility] While at the outside facility, she did test positive for COVID reportedly on October. Unfortunately, she is progressively become more short of breath, now requiring supplemental oxygen, currently on 4 L/min nasal cannula. She does not chronically wear oxygen. Chest CTA done on arrival negative for pulmonary embolism. It did redemonstrate the left upper lobe neoplasm/consolidation along with volume loss. Additional patchy areas of consolidation of the left lower lobe and right lung. Unable to exclude superimposed multilobar pneumonia. CBC: WBC count 21, hemoglobin 7.7, hematocrit 24.2, platelets 38,000. Blast cell high blast cell count. 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 Recently underwent bone marrow biopsy. CMP: Sodium 130, potassium 4, chloride 91, serum bicarb 32, BUN 31, creatinine 0.94, glucose 132. LFTs unremarkable. Troponin less than 0.012. NT proBNP 6880. Patient currently being evaluated in the emergency department, room 11. Patient is currently resting comfortably on 4 L/min nasal cannula. She is demanding she is currently resting comfortably on 4 L/min nasal cannula. No acute respiratory distress. She is frail/cachectic. She states that she has been more short of breath over the last 2 weeks. Reportedly diagnosed with COVID at the outside facility on October. He is previously vaccinated and boosted for COVID. This is her first known infection. The patient is seen today November 06, 2023 in follow-up on the regular medical floor. She is currently sitting up in bed. Awake and alert in no acute distress. Denies any worsening shortness of breath, cough or congestion. She is feeling a bit better today compared to yesterday. She is maintaining good O2 saturations in the 90s on 4 L/min per nasal cannula. She is afebrile. Hemodynamically stable. Blood culture revealing no growth to date. White count 34.6. Hemoglobin 7.2. Platelets 34,000. Sodium 139. Potassium 3.7. Bicarb 30. BUN 29. Creatinine 1.1. Glucose 100. She is continued on Decadron, vitamin supplements. Heparin for DVT prophylaxis. Procalcitonin was 0.4. Cef triaxone has been discontinued. She is completing a course of azithromycin. The patient is seen today November 07, 2023 in follow-up on the regular medical floor. She is awake and alert in no acute distress. Resting comfortably in bed. Denies any worsening shortness of breath, cough or congestion. She has been slow to progress. Still feeling about the same. She is maintaining good O2 saturations in the 90s on 4 L/min per nasal cannula. Sputum culture is positive for Aspergillus species, Tyra albicans. Blood culture revealing no growth. White count 49.4. Hemoglobin 7.1. Platelets 25,000. On Decadron and vitamin supplements. Lovenox for DVT prophylaxis. Objective - Vital Signs Vital signs: Vital Signs Temp 98.6 F 11/07/23 00:17 Pulse 86 11/07/23 07:36 Resp 20 11/07/23 08:00 BP 100/55 11/07/23 07:36 Pulse Ox 91 L 11/07/23 07:36 FiO2 Intake & Output 11/06/23 11/07/23 11/07/23 18:59 06:59 18:59 Intake Total 780 Balance 780 Weight 44.452 kg Intake: Oral 780 Other: Voiding Method External Catheter Bedside Commode # Voids 3 1 1 - Exam GENERAL EXAM: Alert, 73-year-old female, cachectic/frail, resting in bed, on 4 L nasal cannula, in no apparent distress. HEAD: Normocephalic and atraumatic EYES: Normal reaction of pupils, equal size. NOSE: Clear with pink turbinates. THROAT: No erythema or exudates. NECK: No masses, no JVD. CHEST: No chest wall deformity. LUNGS: Equal air entry with diminished left upper lobe lung sounds. No crackles, rhonchi, wheezes. No conversational dyspnea CVS: S1 and S2 normal with no audible murmur, regular rhythm. No extra heart sounds ABDOMEN: No hepatosplenomegaly, active bowel sounds, no guarding or rigidity. SPINE: No scoliosis or deformity SKIN: No rashes CENTRAL NERVOUS SYSTEM: No focal deficits, tone is normal in all 4 extremities. EXTREMITIES: There is no peripheral edema, clubbing, or cyanosis. Peripheral pulses are intact. - Labs CBC & Chem 7: 11/07/23 06:26 11/06/23 06:52 Labs: Abnormal Lab Results - Last 24 Hours (Table) 11/07/23 Range/Units 06:26 WBC 49.48 H (4.50-10.00) X 10*3/uL RBC 2.46 L (4.10-5.20) X 10*6/uL Hgb 7.1 L (12.0-15.0) g/dL Hct 24.0 L (37.2-46.3) % MCV 97.6 H (80.0-97.0) FL MCHC 29.6 L (32.0-37.0) g/dL RDW 21.6 H (11.5-14.5) % Plt Count 25 L (140-440) X 10*3/uL Neutrophils # (Manual) 11.38 H (1.80-7.70) X 10*3/uL Monocytes # (Manual) 8.41 H (0.20-1.00) X 10*3/uL Eosinophils # (Manual) 0 L (0.04-0.35) X 10*3/uL NRBC/100 WBC Diff 5.13 H (0.00-0.01) X 10*3/uL Immature Plt Fraction 31.8 H (1.1-6.1) % Anisocytosis (manual) 2+ A Elliptocytes 2+ A Microbiology - Last 24 Hours (Table) 11/05/23 23:18 Gram Stain - Preliminary Sputum Sputum Culture - Preliminary Tyra albicans Aspergillus species 11/05/23 04:00 Blood Culture - Preliminary Blood Assessment and Plan Assessment: Acute COVID infection, reportedly tested positive 10 days ago at outside facility, chest CTA done on arrival negative for pulmonary embolism. It did redemonstrate the chronic left upper lobe neoplasm/consolidation along with volume loss. Additional patchy areas of consolidation of the left lower lobe and right lung. Unable to exclude superimposed multilobar pneumonia. Procalcitonin was negative at 0.4. Rocephin discontinued. Sputum showing Tyra and aspergillus species. Acute hypoxemic respiratory failure, secondary to above Acute leukocytosis History of non-small cell lung cancer status post chemoradiation followed by immunotherapy. Follows up with frequent outpatient PET scans. Concern for disease recurrence/progression. Most recent PET scan performed on 08/15/2023 sandra wing a left apical uptake compatible with neoplasm and stable in appearance from prior examination. New or increasing focal uptake within the left anterior lateral abdominal wall. Scattered heterogenous appearance of uptake within osseous structures may be treatment related. Not currently on any systemic treatment. Chronic obstructive pulmonary disease, stable History of AML, status post allogenic stem cell transplant History of tbpep-lqbefr-bopz disease Bicytopenia, underwent recent bone marrow biopsy, consistent with MDS, peripheral blast cells are elevated possibly related to acute illness Plan: The patient was seen and evaluated Labs and medications reviewed Sputum culture showing Aspergillus species Consult to infectious disease service Continue vitamin supplements, Decadron Stable and on 4 L nasal cannula Titrate down the FiO2 as tolerated We will continue to follow I have personally seen and examined the patient, performed the documentation and the assessment and plan as written. Number of minutes spent on the visit: 10.
--- NOTE | 2023-11-07 17:14 | P.PN ---
Progress Note - Text Progress Note Date: 11/07/23 Patient is a 73-year-old female was sent in from [facility] as she was having shortness of breath and requiring oxygen about 5 L. Patient was recently diagnosed with COVID and there was no significant improvement because of which patient was sent in here patient had a CT of the chest which did not show any pulmonary embolism but did show infiltrate and consolidation in the left upper lobe and some patchy areas consistent with COVID-19 pneumonia patient is presently on 4 L of oxygen. Patient does have history of squamous cell lung cancer with chemoradiation and immunotherapy patient had history of AML and had stem cell transplant in the past. Patient at baseline will does not use any oxygen at home patient is cachectic thin built. Patient had proBNP of over 6000 but clinically does not appear to be in CHF at this time. Patient has been more short of breath for last couple days. Patient denies any cough at this time. Patient does not have any fever does have highly elevated white count of 21,000. November 05: Laying in bed. Cough. Decreased appetite. Tired. Added incentive spirometry. Have the patient sit up in a chair. November 06: Laying in bed. Congested cough remains. On 4 L nasal cannula. Reminded the patient to be up in a chair and use incentive spirometry. Eating about 25%. Sputum positive for Tyra albicans and Aspergillus species. Consult ID. Patient remained weak tired short of breath Active Medications Albuterol Sulfate (Albuterol Hfa Inhaler) 4 puff INHALATION RT-QID FORMERLY [facility], 1928–1983 Last Admin: 11/07/23 16:29 Dose: 4 puff Ascorbic Acid (Ascorbic Acid 500 Mg Tab) 500 mg PO DAILY FORMERLY [facility], 1928–1983 Last Admin: 11/07/23 08:24 Dose: 500 mg Cholecalciferol (Cholecalciferol 125 Mcg (5000 Iu) Tablet) 125 mcg PO DAILY FORMERLY [facility], 1928–1983 Last Admin: 11/07/23 08:24 Dose: 125 mcg Dexamethasone (Dexamethasone 2 Mg Tab) 6 mg PO DAILY FORMERLY [facility], 1928–1983 Last Admin: 11/07/23 08:23 Dose: 6 mg Enoxaparin Sodium (Enoxaparin 40 Mg/0.4 Ml Syringe) 40 mg SQ DAILY FORMERLY [facility], 1928–1983 Last Admin: 11/07/23 08:24 Dose: 40 mg Famotidine (Famotidine 20 Mg Tab) 20 mg PO DAILY FORMERLY [facility], 1928–1983 Last Admin: 11/07/23 08:24 Dose: 20 mg Sodium Chloride (Saline 0.9%) 1,000 mls @ 20 mls/hr IV .Q24H FOR[facility]LY [facility], 1928–1983 Last Admin: 11/06/23 06:46 Dose: 20 mls/hr Miscellaneous Information (Pneumonia Protocol Utilized 1 Each [facility]) 1 each PO ONCE PRN PRN Reason: Per Protocol Zinc Sulfate (Zinc Sulfate 220 Mg Cap) 220 mg PO DAILY FORMERLY [facility], 1928[facility]1983 Last Admin: 11/07/23 08:24 Dose: 220 mg On examination: VITAL SIGNS: 98.6, 86, 22, 100/55, 91% on 4 L GENERAL APPEARANCE: Lying in bed, tired. Audible rattly cough HEENT: Normal external appearance of nose and ear. Oral cavity normal EYES: Pupils equal. Conjunctiva normal. NECK: JVD not raised. Mass not palpable. RESPIRATORY: Respiratory effort increased, decreased breath sound. Basal crackles right base. CARDIOVASCULAR: First and second sounds normal. No edema. ABDOMEN: Soft. Liver and spleen not palpable. No tenderness. No mass palpable. PSYCHIATRY: Alert and oriented x3. Mood and affect normal. INVESTIGATIONS, reviewed in the clinical context: November 06: White count 49.4 hemoglobin 7.1 platelets 25 November 05: White count 34.6 hemoglobin 7.2 platelets 34 blast cells 41 potassium 3.7 BUN 29 creatinine 1.1 COVID PCR: Positive Chest x-ray: Moderate to large area of consolidation left upper lobe with perihilar infiltrate Chest CT: Near complete consolidation of the left upper lobe. Additional patchy areas of consolidation left lower lobe and right lung. Debris in left mainstem bronchus. Assessment and plan -Acute hypoxic respiratory failure probably secondary to COVID-19 p pneumonitis in a prior setting of left upper lobe neoplasm and consolidation with volume loss.: Not improving 4 L oxygen Pneumonia ruled out because of negative procalcitonin Zithromax -Sputum culture positive for Aspergillus and Tyra. ID consulted for further management -Acute COVID-19 pneumonitis causing hypoxia: Not improving Decadron changed to p.o. - -Non-small cell lung cancer status post chemoradiation and immunotherapy. -Hyponatremia: There is a possibility of mild hypovolemic hyponatremia: Improved -COPD Albuterol -AML status post allogenic stem cell transplant Per hematology blast cells felt to be reactive to acute infection -Bicytopenia Follow with nephrology. For irradiated blood products -Myelodysplastic syndrome Being followed by hematology -Leukocytosis due to assessment #1 -Chronic kidney disease stage 2 likely nephrosclerosis Consult ID. Hematology following. Not ready for discharge. 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
--- NOTE | 2023-11-07 22:27 | P.CONS ---
History of Present Illness - Reason for Consult Consult date: 11/07/23 Aspergillosis Requesting physician: Benny Díaz - Chief Complaint Shortness of breath x 1 week - History of Present Illness Patient is a 73-year-old female with a past medical history significant for leukemia relapse status post pulmonary transplant lung cancer M SD presenting to the hospital for evaluation of increasing shortness of breath and low pulse ox apparently the patient symptoms started about 8 days before presentation to the hospital and symptom has been mostly congestion and cough and has been diagnosed with COVID-19 about a week ago however the patient symptom continue to get worse patient having more shortness of breath on minimal exertion even at rest she also have a cough moderate intensity bring up some sputum but denies any hemoptysis or pleuritic chest pain patient did have some nausea but no vomiting, no abdominal pain or diarrhea however urinary symptoms patient on presentation to the hospital was afebrile and no fever have been recorded subsequently patient was not tachycardic or hypotensive however she was hypoxic and currently on 5 L nasal cannula oxygen patient did have a white count of 21,000 admission which is up to 49.48 creatinine has been normal liver enzymes are normal patient did have a procalcitonin of 0.40 she did tested positive for SARS-CoV-2 PCR influenza RSV and urine for Legionella antigen was negative patient did have blood cultures so far negative sputum now growing Aspergillus species that has prompted this consultation patient did have a CT angiogram of the chest which shows near complete consolidation of the left upper lobe additional patchy areas of consolidation in the left lower lobe and right lung concerning for multilobar pneumonia there is a left mainstem bronchus consistent with aspiration Review of Systems Positive point and negatives has been mentioned in the HPI, complete review of systems was performed and all other systems are negative 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 Now [facility] History of Any Multi-Drug Resistant Organisms: None Reported Past Surgical History: Orthopedic Surgery, Tonsillectomy Additional Past Surgical History / Comment(s): bone marrow transplant, left ankle surgery with screw, right tib surgery with screw Past Anesthesia/Blood Transfusion Reactions: No Reported Reaction Past Psychological History: No Psychological Hx Reported Smoking Status: Former smoker Past Alcohol Use History: Rare Past Drug Use History: None Reported Medications and Allergies Home Medications Medication Instructions Recorded Confirmed Type Cholecalciferol (Vitamin D3) 50 mcg PO DAILY 09/17/23 11/05/23 History [Vitamin D3 (50 Mcg = 2000 Iu)] Vit C/E/Zn/Coppr/Lutein/Zeaxan 1 cap PO BID 09/17/23 11/05/23 History [Preservision Areds 2 Softgel] Acetaminophen Tab [Tylenol] 650 mg PO Q6H PRN 11/05/23 11/05/23 History Albuterol Sulfate [Proair 1 puff INHALATION RT-Q4H PRN 11/05/23 11/05/23 History Respiclick] Ascorbic Acid [Vitamin C] 1,000 mg PO DAILY 11/05/23 11/05/23 History Calcium Carbonate [Calcium] 600 mg PO DAILY 11/05/23 11/05/23 History Lactose-Reduced Food [Ensure Plus] 237 ml PO TID@0900,1300,2100 11/05/23 11/05/23 History Melatonin 6 mg PO HS PRN 11/05/23 11/05/23 History Quercetin 250mg 250 mg PO DAILY 11/05/23 11/05/23 History Zinc Gluconate [Zinc] 50 mg PO DAILY 11/05/23 11/05/23 History Allergies Allergy/AdvReac Type Severity Reaction Status Date / Time No Known Allergies Allergy Verified 11/05/23 10:06 Physical Exam Vitals: Vital Signs Temp Pulse Resp BP Pulse Ox 11/07/23 08:00 20 11/07/23 07:36 86 16 100/55 91 L 11/07/23 00:17 98.6 F 89 20 108/53 90 L 11/06/23 19:02 98.4 F 91 19 101/60 96 11/06/23 13:48 97.9 F 91 17 92/57 93 L Intake and Output 11/06/23 11/07/23 11/07/23 22:59 06:59 14:59 Intake Total 540 Balance 540 Intake: Oral 540 Other: Voiding Method Bedside Commode # Voids 3 1 1 GENERAL DESCRIPTION: Elderly female up in the chaird, no distress. No tachypnea or accessory muscle of respiration use. HEENT: Shows Pallor , no scleral icterus. Oral mucous membrane is dry. Patient did have extensiv r thrush NECK: Trachea central, no thyromegaly. LUNGS: Unlabored breathing. Coarse breath sounds bilaterally HEART: S1, S2, regular rate and rhythm. No loud murmur ABDOMEN: Soft, no tenderness , guarding or rigidity, no organomegaly EXTREMITIES: No edema of feet. SKIN: No rash, no masses palpable. NEUROLOGICAL: The patient is awake, alert, oriented x3, mood and affect normal. Results CBC & Chem 7: 11/07/23 06:26 11/06/23 06:52 Labs: Abnormal Lab Results - Last 24 Hours (Table) 11/07/23 Range/Units 06:26 WBC 49.48 H (4.50-10.00) X 10*3/uL RBC 2.46 L (4.10-5.20) X 10*6/uL Hgb 7.1 L (12.0-15.0) g/dL Hct 24.0 L (37.2-46.3) % MCV 97.6 H (80.0-97.0) FL MCHC 29.6 L (32.0-37.0) g/dL RDW 21.6 H (11.5-14.5) % Plt Count 25 L (140-440) X 10*3/uL Neutrophils # (Manual) 11.38 H (1.80-7.70) X 10*3/uL Monocytes # (Manual) 8.41 H (0.20-1.00) X 10*3/uL Eosinophils # (Manual) 0 L (0.04-0.35) X 10*3/uL NRBC/100 WBC Diff 5.13 H (0.00-0.01) X 10*3/uL Immature Plt Fraction 31.8 H (1.1-6.1) % Anisocytosis (manual) 2+ A Elliptocytes 2+ A Microbiology - Last 24 Hours (Table) 11/05/23 04:00 Blood Culture - Preliminary Blood 11/05/23 23:18 Gram Stain - Preliminary Sputum Sputum Culture - Preliminary Tyra albicans Aspergillus species Assessment and Plan (1) Aspergillosis Current Visit: Yes Status: Acute Code(s): B44.9 - ASPERGILLOSIS, UNSPECIFIED SNOMED Code(s): 62717854 (2) COVID-19 Current Visit: Yes Status: Acute Priority: High Code(s): U07.1 - COVID-19 SNOMED Code(s): 686986796 (3) Left upper lobe pneumonia Current Visit: No Status: Acute Code(s): J18.9 - PNEUMONIA, UNSPECIFIED ORGANISM SNOMED Code(s): 461621150 Plan: 1patient presented to hospital with increasing shortness of breath which is likely multifactorial in this patient has been diagnosed with COVID-19 more than a week before presentation to the hospital patient on admission did have significant abnormality on CT angiogram of the chest with complete opacification of the left upper lobe now with a sputum positive for Aspergillus species in this patient who did have history of lung cancer as well as hematological malignancy plus recent diagnosis of COVID-19 due to risk of Aspergillus 2-we will check Aspergillus serum galactomannan 3-we will empirically start the patient on voriconazole and see clinical response and monitor clinical course closely We will follow on clinical condition and cultures to further adjust medication if needed Thank you for this consultation we will follow the patient along with you Dictation was produced using [employer] dictation software. please excuse any grammatical, word or spelling errors. Time with Patient: Greater than 30
--- NOTE | 2023-11-08 07:48 | XR ---
EXAMINATION TYPE: XR chest 1V portable DATE OF EXAM: 11/08/2023 HISTORY: Shortness of breath. COMPARISON: 11/06/2023 TECHNIQUE: Single view of the chest is submitted. FINDINGS: Demonstrated are scattered senescent parenchymal change. Aggressive opacity throughout the left lung with a small area of aerated lung noted. Additional patch y density right lower lobe and right suprahilar region. The heart is stable. Hilar and mediastinal structures are within normal limits. Degenerative changes are seen of the dorsal spine. IMPRESSION: 1. Multifocal pneumonia with slight progression suggested on the left.
[2023-11-08 09:41] LABS: Basophils # (M) 0 X 10*3/uL (0.00-0.10); Blast Cells # (M) 21.55 k/uL (0); Eosinophils # (M) 0 X 10*3/uL (0.04-0.35); HCT 23.2 % (37.2-46.3); HGB 6.8 g/dL (12.0-15.0); Immature Platelet Fraction 31.6 % (1.1-6.1); Lymphocytes # (M) 27.11 X 10*3/uL (0.90-5.00); MCH 28.2 pg (27.0-32.0); MCHC 29.3 g/dL (32.0-37.0); MCV 96.3 FL (80.0-97.0); Monocytes # (M) 6.95 X 10*3/uL (0.20-1.00); NRBC Per 100 WBC 7.11 X 10*3/uL (0.00-0.01); Neutrophils % (M) 20 %; Platelet Count 25 X 10*3/uL (140-440); RBC 2.41 X 10*6/uL (4.10-5.20); WBC 69.52 X 10*3/uL (4.50-10.00)
[2023-11-08] MEDS: guaiFENesin 600 MG TABLET.ER PO SCH (09:59)
[2023-11-08 10:00] LABS: Erythrocyte Sedimentation Rate 28 mm/Hr (0-30)
--- NOTE | 2023-11-08 11:12 | P.PN ---
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 Patient does follow in the pulmonary office with Dr. Moses. Her oncologist is Dr. Vera. Recently a concern for tumor recurrence/progression. Most recent PET scan performed on 08/15/2023 showing a left apical uptake compatible with neoplasm and stable in appearance from prior examination. New or increasing focal uptake within the left anterior lateral abdominal wall. Scattered heterogenous appearance of uptake within osseous structures may be treatment related. Not currently on any systemic treatment. Of note, patient recently had a fall sustaining a right patellar fracture, [facility] her [facility]. While at the outside facility, she did test positive for COVID reportedly on October. Unfortunately, she is progressively become more short of breath, now requiring supplemental oxygen, currently on 4 L/min nasal cannula. She does not chronically wear oxygen. Chest CTA done on arrival negative for pulmonary embolism. It did redemonstrate the left upper lobe neoplasm/consolidation along with volume loss. Additional patchy areas of consolidation of the left lower lobe and right lung. Unable to exclude superimposed multilobar pneumonia. CBC: WBC count 21, hemoglobin 7.7, hematocrit 24.2, platelets 38,000. Blast cell high blast cell count. 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 Recently underwent bone marrow biopsy. CMP: Sodium 130, potassium 4, chloride 91, serum bicarb 32, BUN 31, creatinine 0.94, glucose 132. LFTs unremarkable. Troponin less than 0.012. NT proBNP 6880. Patient currently being evaluated in the emergency department, room 11. Patient is currently resting comfortably on 4 L/min nasal cannula. She is demanding she is currently resting comfortably on 4 L/min nasal cannula. No acute respiratory distress. She is frail/cachectic. She states that she has been more short of breath over the last 2 weeks. Reportedly diagnosed with COVID at the outside facility on October. He is previously vaccinated and boosted for COVID. This is her first known infection. The patient is seen today November 06, 2023 in follow-up on the regular medical floor. She is currently sitting up in bed. Awake and alert in no acute distress. Denies any worsening shortness of breath, cough or congestion. She is feeling a bit better today compared to yesterday. She is maintaining good O2 saturations in the 90s on 4 L/min per nasal cannula. She is afebrile. Hemodynamically stable. Blood culture revealing no growth to date. White count 34.6. Hemoglobin 7.2. Platelets 34,000. Sodium 139. Potassium 3.7. Bicarb 30. BUN 29. Creatinine 1.1. Glucose 100. She is continued on Decadron, vitamin supplements. Heparin for DVT prophylaxis. Procalcitonin was 0.4. Cef triaxone has been discontinued. She is completing a course of azithromycin. The patient is seen today November 07, 2023 in follow-up on the regular medical floor. She is awake and alert in no acute distress. Resting comfortably in bed. Denies any worsening shortness of breath, cough or congestion. She has been slow to progress. Still feeling about the same. She is maintaining good O2 saturations in the 90s on 4 L/min per nasal cannula. Sputum culture is positive for Aspergillus species, Tyra albicans. Blood culture revealing no growth. White count 49.4. Hemoglobin 7.1. Platelets 25,000. On Decadron and vitamin supplements. Lovenox for DVT prophylaxis. The patient is seen today November 08, 2023 in follow-up on the regular medical floor. She is currently resting in bed. Awake and alert in no acute distress. Denies any worsening shortness of breath, cough or congestion. Maintaining O2 saturations in the 90s on 5 L/min per nasal cannula. She is afebrile. Hemodyn amically stable. Her chest x-ray shows slight progression of her multifocal pneumonia on the left lung. Urine culture was positive for Tyra and aspergillus fumigatus. She has been initiated on voriconazole per ID service. White count 69.5. Hemoglobin 6.8. Platelets 25,000. Procalcitonin 0.49. C- reactive protein 13.6. She is continued on Decadron, vitamin supplements, Lovenox for DVT prophylaxis. Objective - Vital Signs Vital signs: Vital Signs Temp 98.3 F 11/08/23 07:18 Pulse 84 11/08/23 07:18 Resp 18 11/08/23 07:18 BP 101/54 11/08/23 07:18 Pulse Ox 94 L 11/08/23 07:18 FiO2 Intake & Output 11/07/23 11/08/23 11/08/23 18:59 06:59 18:59 Other: # Voids 2 1 # Bowel Movements 1 - Exam GENERAL EXAM: Alert, pleasant, cachectic/frail, 73-year-old female, resting in bed, on 5 L nasal cannula, in no apparent distress. HEAD: Normocephalic and atraumatic EYES: Normal reaction of pupils, equal size. NOSE: Clear with pink turbinates. THROAT: No erythema or exudates. NECK: No masses, no JVD. CHEST: No chest wall deformity. LUNGS: Equal air entry with diminished left upper lobe lung sounds. No crackles, rhonchi, wheezes. No conversational dyspnea CVS: S1 and S2 normal with no audible murmur, regular rhythm. No extra heart sounds ABDOMEN: No hepatosplenomegaly, active bowel sounds, no guarding or rigidity. SPINE: No scoliosis or deformity SKIN: No rashes CENTRAL NERVOUS SYSTEM: No focal deficits, tone is normal in all 4 extremities. EXTREMITIES: There is no peripheral edema, clubbing, or cyanosis. Peripheral pulses are intact. - Labs CBC & Chem 7: 11/08/23 04:35 11/06/23 06:52 Labs: Abnormal Lab Results - Last 24 Hours (Table) 11/07/23 11/08/23 11/08/23 Range/Units 06:26 04:35 04:35 WBC 49.48 H 69.52 A* (4.50-10.00) X 10*3/uL RBC 2.46 L 2.41 L (4.10-5.20) X 10*6/uL Hgb 7.1 L 6.8 A* (12.0-15.0) g/dL Hct 24.0 L 23.2 L (37.2-46.3) % MCV 97.6 H (80.0-97.0) FL MCHC 29.6 L 29.3 L (32.0-37.0) g/dL RDW 21.6 H 22.0 H (11.5-14.5) % Plt Count 25 L 25 L (140-440) X 10*3/uL Neutrophils # (Manual) 11.38 H 13.90 H (1.80-7.70) X 10*3/uL Lymphocytes # (Manual) 27.11 H (0.90-5.00) X 10*3/uL Monocytes # (Manual) 8.41 H 6.95 H (0.20-1.00) X 10*3/uL Eosinophils # (Manual) 0 L 0 L (0.04-0.35) X 10*3/uL Promyelocytes # (Man) 0.49 H (0) k/uL Blast Cells # (Man) 23.26 H (0) k/uL NRBC/100 WBC Diff 5.13 H 7.11 H (0.00-0.01) X 10*3/uL Immature Plt Fraction 31.8 H 31.6 H (1.1-6.1) % Anisocytosis (manual) 2+ A Elliptocytes 2+ A C-Reactive Protein 13.60 H (0.00-0.80) mg/dL Microbiology - Last 24 Hours (Table) 11/05/23 23:18 Gram Stain - Final Sputum Sputum Culture - Final Tyra albicans Aspergillus fumigatus 11/05/23 04:00 Blood Culture - Preliminary Blood Assessment and Plan Assessment: Acute COVID infection, reportedly tested positive 10 days ago at outside facility, chest CTA done on arrival negative for pulmonary embolism. It did redemonstrate the chronic left upper lobe neoplasm/consolidation along with volume loss. Additional patchy areas of consolidation of the left lower lobe and right lung. Unable to exclude superimposed multilobar pneumonia. Procalcitonin was negative at 0.4. Rocephin discontinued. Sputum showing Tyra and aspergillus fumigatus. Initiated on voriconazole Acute hypoxemic respiratory failure, secondary to above Acute leukocytosis History of non-small cell lung cancer status post chemoradiation followed by immunotherapy. Follows up with frequent outpatient PET scans. Concern for disease recurrence/progression. Most recent PET scan performed on 08/15/2023 showing a left apical uptake compatible with neoplasm and stable in appearance from prior examination. New or increasing focal uptake within the left anterior lateral abdominal wall. Scattered heterogenous appearance of uptake within osseous structures may be treatment related. Not currently on any systemic aissatou tment. Chronic obstructive pulmonary disease, stable History of AML, status post allogenic stem cell transplant History of jpvnh-hisrny-wonc disease Bicytopenia, underwent recent bone marrow biopsy, consistent with MDS, peripheral blast cells are elevated possibly related to acute illness Plan: The patient was seen and evaluated Chest x-ray, labs and medications reviewed Initiated on voriconazole Will hold off on bronchoscopy due to recent COVID infection Stable and on 5 L nasal cannula Continue vitamin supplements, Decadron Encouraged the increased use of the incentive spirometer Add flutter valve, add chest physiotherapy Titrate down the FiO2 as tolerated We will continue to follow I have personally seen and examined the patient, performed the documentation and the assessment and plan as written. Number of minutes spent on the visit: 10.
--- NOTE | 2023-11-08 15:02 | P.PN ---
Subjective Progress Note Date: 11/08/23 Principal diagnosis: Reason for follow-up is COVID/aspergillosis Patient is a 73-year-old female with a past medical history significant for leukemia relapse status post pulmonary transplant lung cancer MSD presenting to the hospital for evaluation of increasing shortness of breath and low pulse ox apparently the patient symptoms started about 8 days before presentation to the hospital., Patient did have a CT we did shows near complete consolidation of the left upper lobe additional patchy areas of consolidation sputum came back positive with Aspergillus prompted this consultation. On today's evaluation that is 11/08/2023,the patient remains to be afebrile, pat ient is on 4 L nasal cannula worsening supplemental oxygen and denies any shortness of breath no chest pain and denies any worsening cough.Patient denies having any nausea or vomiting, no abdominal pain and no diarrhea has been reported. Patient white count is up to 69.52 no BMP was done Objective - Vital Signs Vital signs: Vital Signs Temp 98.3 F 11/08/23 07:18 Pulse 84 11/08/23 07:18 Resp 18 11/08/23 07:18 BP 101/54 11/08/23 07:18 Pulse Ox 94 L 11/08/23 07:18 FiO2 Intake & Output 11/07/23 11/08/23 11/08/23 18:59 06:59 18:59 Other: # Voids 2 1 # Bowel Movements 1 - Exam GENERAL DESCRIPTION: An elderly female up in the chair in no distress RESPIRATORY SYSTEM: Unlabored breathing , decreased breath sounds at bases HEART: S1 S2 regular rate and rhythm , ABDOMEN: Soft , no tenderness EXTREMITIES: No edema feet - Labs CBC & Chem 7: 11/08/23 04:35 11/06/23 06:52 Labs: Abnormal Lab Results - Last 24 Hours (Table) 11/07/23 11/08/23 11/08/23 Range/Units 06:26 04:35 04:35 WBC 69.52 A* (4.50-10.00) X 10*3/uL RBC 2.41 L (4.10-5.20) X 10*6/uL Hgb 6.8 A* (12.0-15.0) g/dL Hct 23.2 L (37.2-46.3) % MCHC 29.3 L (32.0-37.0) g/dL RDW 22.0 H (11.5-14.5) % Plt Count 25 L (140-440) X 10*3/uL Neutrophils # (Manual) 13.90 H (1.80-7.70) X 10*3/uL Lymphocytes # (Manual) 27.11 H (0.90-5.00) X 10*3/uL Monocytes # (Manual) 6.95 H (0.20-1.00) X 10*3/uL Eosinophils # (Manual) 0 L (0.04-0.35) X 10*3/uL Promyelocytes # (Man) 0.49 H (0) k/uL Blast Cells # (Man) 23.26 H (0) k/uL NRBC/100 WBC Diff 7.11 H (0.00-0.01) X 10*3/uL Immature Plt Fraction 31.6 H (1.1-6.1) % C-Reactive Protein 13.60 H (0.00-0.80) mg/dL Microbiology - Last 24 Hours (Table) 11/05/23 23:18 Gram Stain - Final Sputum Sputum Culture - Final Tyra albicans Aspergillus fumigatus 11/05/23 04:00 Blood Culture - Preliminary Blood Assessment and Plan (1) Aspergillosis Current Visit: Yes Status: Acute Code(s): B44.9 - ASPERGILLOSIS, UNSPECIFIED SNOMED Code(s): 30537068 (2) COVID-19 Current Visit: Yes Status: Acute Priority: High Code(s): U07.1 - COVID-19 SNOMED Code(s): 314878965 (3) Left upper lobe pneumonia Current Visit: No Status: Acute Code(s): J18.9 - PNEUMONIA, UNSPECIFIED ORGANISM SNOMED Code(s): 517866742 Plan: 1patient presented to hospital with increasing shortness of breath which is likely multifactorial in this patient has been diagnosed with COVID-19 more than a week before presentation to the hospital patient on admission did have significant abnormality on CT angiogram of the chest with complete opacification of the left upper lobe now with a sputum positive for Aspergillus species in this patient who did have history of lung cancer as well as hematological malign fadia plus recent diagnosis of COVID-19 due to risk of Aspergillus 2-currently waiting for Aspergillus serum galactomannan 3-patient to continue with voriconazole and monitor clinical course closely Dictation was produced using [employer] dictation software. please excuse any grammatical, word or spelling errors. Time with Patient: Less than 30
--- NOTE | 2023-11-08 15:19 | P.PN ---
Subjective Progress Note Date: 11/08/23 No acute events. Pt reporting continuing SOB, no acute changes in breathing. Hgb 6.8, WBC 69.5, plt 25. Blast cells 31%. Sputum culture positive for Aspergillus. Pt afebrile, SPO2 95% on 5L Objective - Vital Signs Vital signs: Vital Signs Temp 98.3 F 11/08/23 07:18 Pulse 84 11/08/23 07:18 Resp 18 11/08/23 07:18 BP 101/54 11/08/23 07:18 Pulse Ox 94 L 11/08/23 07:18 FiO2 Intake & Output 11/07/23 11/08/23 11/08/23 18:59 06:59 18:59 Weight 44.452 kg Other: # Voids 2 1 # Bowel Movements 1 - Constitutional General appearance: Present: no acute distress, thin - EENT Eyes: Present: anicteric sclerae, EOMI ENT: Present: hearing grossly normal - Respiratory Details: breathing is even and unlabored - Cardiovascular Details: skin warm and dry - Integumentary Integumentary: Absent: cyanotic - Musculoskeletal Musculoskeletal: Present: generalized weakness - Psychiatric Psychiatric: Present: A&O x's 3 - Labs CBC & Chem 7: 11/08/23 04:35 11/06/23 06:52 Labs: Abnormal Lab Results - Last 24 Hours (Table) 11/07/23 11/08/23 11/08/23 Range/Units 06:26 04:35 04:35 WBC 69.52 A* (4.50-10.00) X 10*3/uL RBC 2.41 L (4.10-5.20) X 10*6/uL Hgb 6.8 A* (12.0-15.0) g/dL Hct 23.2 L (37.2-46.3) % MCHC 29.3 L (32.0-37.0) g/dL RDW 22.0 H (11.5-14.5) % Plt Count 25 L (140-440) X 10*3/uL Neutrophils # (Manual) 13.90 H (1.80-7.70) X 10*3/uL Lymphocytes # (Manual) 27.11 H (0.90-5.00) X 10*3/uL Monocytes # (Manual) 6.95 H (0.20-1.00) X 10*3/uL Eosinophils # (Manual) 0 L (0.04-0.35) X 10*3/uL Promyelocytes # (Man) 0.49 H (0) k/uL Blast Cells # (Man) 23.26 H (0) k/uL NRBC/100 WBC Diff 7.11 H (0.00-0.01) X 10*3/uL Immature Plt Fraction 31.6 H (1.1-6.1) % C-Reactive Protein 13.60 H (0.00-0.80) mg/dL Microbiology - Last 24 Hours (Table) 11/05/23 04:00 Blood Culture - Preliminary Blood 11/05/23 23:18 Gram Stain - Final Sputum Sputum Culture - Final Tyra albicans Aspergillus fumigatus Assessment and Plan (1) MDS (myelodysplastic syndrome) Current Visit: Yes Status: Acute Priority: High Code(s): D46.9 - MYELODYSPLASTIC SYNDROME, UNSPECIFIED SNOMED Code(s): 829736945 (2) Pneumonia Current Visit: Yes Status: Acute Priority: High Code(s): J18.9 - PNEU MONIA, UNSPECIFIED ORGANISM SNOMED Code(s): 471373488 (3) COVID-19 Current Visit: Yes Status: Acute Priority: High Code(s): U07.1 - COVID-19 SNOMED Code(s): 572223312 (4) Anemia Current Visit: Yes Status: Acute Priority: Medium Code(s): D64.9 - ANEMIA, UNSPECIFIED SNOMED Code(s): 310438391 Plan: COVID, pneumonia: Presented to the emergency room for progressing SOB, cough and dizziness. She was diagnosed with COVID on 10/27/23. -On admission D dimer elevated at 3.79. CTA chest was obtained which was negative for PE. Near complete consolidation of the left upper lobe. Additional patchy areas of consolidation in the left lower lobe and right lung, concerning for multilobar pneumonia. Debris's in the left mainstem bronchus consistent with aspiration. -Patient has been started on azithromycin and Rocephin -Blood cultures negative thus far. Sputum culture positive for Aspergillus -ID following, antifungal tx started MDS, hx AML: -Oncology history and plan as dictated in the HPI -Workup in clinic showed no evidence of iron, vitamin B12, folic acid deficiency, or hemolysis. SPEP and immunnofixation negative for monoclonal paraproteinemia, K/L ratio normal. Given her prior history with AML and allogenic stem cell transplant, bone marrow biopsy was scheduled for 09/02/23. 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 -Plan is to start patient on Dacogen, once she is discharged from rehab -Admit labs show WBC 21.0, ANC 5.0, hemoglobin 7.7, platelets 38,000. Blast cells 38%. -Hgb 6.8 today, 1 unit irradiated PRBCs ordered -WBC increased today to 69.5, blasts now 31% from 47% -Blast cells likely reactive to acute condition in part to leukomoid rxn r/t COVID, pneumonia, aspergillus infection. Do not believe this a blast crisis. Will continue to monitor and f/u outpt to repeat CBC once she acutely recovered -Continue to monitor CBC. Transfuse for hgb less than 7 and for plts less than 10,000 or if symptomatic. Irradiated blood products attests:I have seen and examined pt, performed H&P, developed impression and plan of care. Discussed with dictator. Agree with documentation, dictated as a scribe.
--- NOTE | 2023-11-08 17:08 | P.PN ---
Progress Note - Text Progress Note Date: 11/08/23 Patient is a 73-year-old female was sent in from [facility] as she was having shortness of breath and requiring oxygen about 5 L. Patient was recently diagnosed with COVID and there was no significant improvement because of which patient was sent in here patient had a CT of the chest which did not show any pulmonary embolism but did show infiltrate and consolidation in the left upper lobe and some patchy areas consistent with COVID-19 pneumonia patient is presently on 4 L of oxygen. Patient does have history of squamous cell lung cancer with chemoradiation and immunotherapy patient had history of AML and had stem cell transplant in the past. Patient at baseline will does not use any oxygen at home patient is cachectic thin built. Patient had proBNP of over 6000 but clinically does not appear to be in CHF at this time. Patient has been more short of breath for last couple days. Patient denies any cough at this time. Patient does not have any fever does have highly elevated white count of 21,000. November 05: Laying in bed. Cough. Decreased appetite. Tired. Added incentive spirometry. Have the patient sit up in a chair. November 06: Laying in bed. Congested cough remains. On 4 L nasal cannula. Reminded the patient to be up in a chair and use incentive spirometry. Eating about 25%. Sputum positive for Tyra albicans and Aspergillus species. Consult ID. Patient remained weak tired short of breath November 07: Up in a recliner. Some shortness of breath. Congested cough. 4 L nasal cannula. Voriconazole added by ID. Oral intake variable. Instructed about incentive spirometry and flutter valve again. Worsening white count up to 69,000 hemoglobin 6.8. Blast cells have been going up. Discussed with Dr. Vera from hematology. To look into transformation into leukemia. Active Medications Albuterol Sulfate (Albuterol Hfa Inhaler) 4 puff INHALATION RT-QID [facility] Last Admin: 11/08/23 16:40 Dose: 4 puff Ascorbic Acid (Ascorbic Acid 500 Mg Tab) 500 mg PO DAILY [facility] Last Admin: 11/08/23 09:59 Dose: 500 mg Cholecalciferol (Cholecalciferol 125 Mcg (5000 Iu) Tablet) 125 mcg PO DAILY [facility] Last Admin: 11/08/23 09:59 Dose: 125 mcg Dexamethasone (Dexamethasone 2 Mg Tab) 6 mg PO DAILY [facility] Last Admin: 11/08/23 09:59 Dose: 6 mg Enoxaparin Sodium (Enoxaparin 40 Mg/0.4 Ml Syringe) 40 mg SQ DAILY [facility] Last Admin: 11/08/23 09:58 Dose: 40 mg Famotidine (Famotidine 20 Mg Tab) 20 mg PO DAILY [facility] Last Admin: 11/08/23 09:59 Dose: 20 mg Guaifenesin (Guaifenesin 600 Mg Tablet.Er) 600 mg PO Q12HR DIEGO Last Admin: 11/08/23 09:59 Dose: 600 mg Sodium Chloride (Saline 0.9%) 1,000 mls @ 20 mls/hr IV .Q24H [facility] Last Admin: 11/08/23 05:23 Dose: Not Given Miscellaneous Information (Pneumonia Protocol Utilized 1 Each Misc) 1 each PO ONCE PRN PRN Reason: Per Protocol Voriconazole (Voriconazole 200 Mg Tab) 200 mg PO Q12HR [facility]; Protocol Zinc Sulfate (Zinc Sulfate 220 Mg Cap) 220 mg PO DAILY [facility] Last Admin: 11/08/23 09:59 Dose: 220 mg On examination: VITAL SIGNS: 98.1, 83, 17, 110 x 54, 94% on 5 L GENERAL APPEARANCE: Up in a recliner a bit short of breath HEENT: Normal external appearance of nose and ear. Oral cavity normal EYES: Pupils equal. Conjunctiva normal. NECK: JVD not raised. Mass not palpable. RESPIRATORY: Respiratory effort increased, decreased breath sound. Expiratory crackles CARDIOVASCULAR: First and second sounds normal. No edema. ABDOMEN: Soft. Liver and spleen not palpable. No tenderness. No mass palpable. PSYCHIATRY: Alert and oriented x3. Mood and affect normal. INVESTIGATIONS, reviewed in the clinical context: November 07: White count 69, hemoglobin 6.8 platelets 25 blast cells from yesterday 23.2 CRP 13.6 procalcitonin 0.49 November 06: White count 49.4 hemoglobin 7.1 platelets 25 November 05: White count 34.6 hemoglobin 7.2 platelets 34 blast cells 41 potassium 3.7 BUN 29 creatinine 1.1 COVID PCR: Positive Chest x-ray: Moderate to large area of consolidation left upper lobe with perihilar infiltrate Chest CT: Near complete consolidation of the left upper lobe. Additional patchy areas of consolidation left lower lobe and right lung. Debris in left mainstem bronchus. Assessment and plan -Acute hypoxic respiratory failure probably secondary to COVID-19 p pneumonitis in a prior setting of left upper lobe neoplasm and consolidation with volume loss.: Not improving 4 L oxygen Pneumonia ruled out because of negative procalcitonin Zithromax -Sputum culture positive for Aspergillus and Tyra. ID patient started on voriconazole -Acute COVID-19 pneumonitis causing hypoxia: Not improving Decadron - -Non-small cell lung cancer status post chemoradiation and immunotherapy. -Hyponatremia: There is a possibility of mild hypovolemic hyponatremia: Improved -Severe protein calorie malnutrition Add Ensure supplement -COPD Albuterol -AML status post allogenic stem cell transplant Worsening leukocytosis with blast cells. Spoke to Dr. Hugo today. To evaluate. -Bicytopenia, but worsening hemoglobin Follow with nephrology. For irradiated blood products 1 unit of blood ordered -Myelodysplastic syndrome Being followed by hematology -Leukocytosis due to assessment #1, worsening -Chronic kidney disease stage 2 likely nephrosclerosis Voriconazole started. Hematology to evaluate again changing CBC profile. Concern for leukemia transformation. Still could be from underlying infection and steroids. 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
[2023-11-08] MEDS ORDERED: EPINEPHrine 10 ML SYRINGE (0.1 MG/ML) ONE (21:14)
[2023-11-08] MEDS ORDERED: SODIUM BICARB 8.4% 50 ML SYR (1 MEQ/ML) ONE (21:14)
[2023-11-08 21:17] LABS: Glucose,Whole Blood 284 mg/dL (70-110)
[2023-11-08 21:38] LABS: Glucose,Whole Blood 285 mg/dL (70-110)
[2023-11-08 22:10] LABS: ABG Base Excess -8.5 mmol/L; ABG HCO3 22 mmol/L (21-25); ABG Oxygen Saturation 99.4 % (94-97); ABG PO2 199 mmHg (83-108); ABG TCO2 25 mmol/L (19-24)
[2023-11-08 22:18] LABS: ABG PH 6.97 (7.35-7.45)
[2023-11-08 22:19] LABS: ABG PCO2 96 mmHg (35-45); Allen Test Performed? no
--- NOTE | 2023-11-08 22:21 | XR ---
EXAMINATION TYPE: XR chest 1V portable DATE OF EXAM: 11/08/2023 10:01 PM CLINICAL INDICATION:Female, 73 years old with history of intubation and COVID infection. COMPARISON: Chest radiograph from the same day TECHNIQUE: XR chest 1V portable Frontal view of the chest. FINDINGS: There has been interval placement of endotracheal tube seen terminating within the trachea approximat garfield 3 cm above the bifurcation. Interval placement of a enteric decompression tube with distal tip se en terminating in the area of the stomach. There is similar near complete opacification of the left h emithorax. There is mild interval increase in patchy airspace opacities involving the right hemithora x. The cardiac silhouette is obscured. No acute osseous abnormalities. IMPRESSION: 1. Interval placement of endotracheal tube and enteric decompression tubes. 2. Similar near complete opacification of the left hemithorax. 3. Mild progression of patchy airspace disease involving the right hemithorax.
[2023-11-08] MEDS: SODIUM CHLORIDE 0.9% 1,000 ML IV ONE ×2 (22:26→23:20)
[2023-11-08] MEDS: NOREPINEPHRINE 4 MG in SODIUM CHLORIDE 0.9% 250 ML IV SCH (22:26)
[2023-11-08] MEDS: SODIUM BICARB 8.4% 50 ML SYR (1 MEQ/ML) IV STA (22:26)
[2023-11-08 22:30] LABS: Anisocytosis Moderate; HCT 20.2 % (34.0-46.0); Hypochromasia Marked; MCH 28.6 pg (25.0-35.0); MCHC 28.8 g/dL (31.0-37.0); Macrocytosis Moderate; Mean Platelet Volume 8.7; Poikilocytosis Slight; RBC 2.03 m/uL (3.80-5.40); RDW 21.3 % (11.5-15.5)
[2023-11-08 22:33] LABS: HGB 5.8 gm/dL (11.4-16.0); MCV 99.3 fL (80.0-100.0)
[2023-11-08 22:34] LABS: Platelet Count 21 k/uL (150-450)
[2023-11-08 22:39] LABS: AST 593 U/L (14-36); African American GFR (CKD) 44 (>60 ml/min/1.73 sqM); Albumin 2.3 g/dL (3.5-5.0); Albumin/Globulin Ratio 0.9; Alkaline Phosphatase 108 U/L (38-126); Anion Gap 16 mmol/L; Blood Urea Nitrogen 49 mg/dL (7-17); Calcium 8.5 mg/dL (8.4-10.2); Carbon Dioxide 22 mmol/L (22-30); Chloride 103 mmol/L (98-107); Globulin 2.5 g/dL; Glucose 326 mg/dL (74-99); Magnesium 2.7 mg/dL (1.6-2.3); Non-African American GFR(CKD) 38 (>60 ml/min/1.73 sqM); Potassium 5.1 mmol/L (3.5-5.1); Sodium 141 mmol/L (137-145); Total Bilirubin 0.5 mg/dL (0.2-1.3); Total Protein 4.8 g/dL (6.3-8.2)
[2023-11-08 22:43] LABS: ABG Base Excess -1.3 mmol/L; ABG HCO3 26 mmol/L (21-25); ABG Oxygen Saturation 83.8 % (94-97); ABG PCO2 57 mmHg (35-45); ABG PH 7.26 (7.35-7.45); ABG TCO2 27 mmol/L (19-24)
[2023-11-08 22:47] LABS: ABG PO2 53 mmHg (83-108); Allen Test Performed? no
[2023-11-08 22:48] LABS: ALT 355 U/L (4-34)
[2023-11-08] MEDS: VORICONAZOLE 200 MG TAB PO SCH (23:19)
[2023-11-08] MEDS: VASOPRESSIN 60 UNIT in SODIUM CHLORIDE 0.9% 150 ML IV SCH (23:20)
[2023-11-08] MEDS: PIPERACILLIN-TAZOBACTAM 3.375 GM in SODIUM CHLORIDE 0.9% 100 ML IVPB SCH (23:42)
[2023-11-08] MEDS: SODIUM CHLORIDE 0.9% 1,000 ML IV SCH (23:43)
[2023-11-09 00:10] VITALS: TEMP 95.3
--- NOTE | 2023-11-09 00:53 | P.EN ---
CODE BLUE note Activated at 2113. Arrived at the scene shortly after. Reviewed the chart and discussed the case with the RN in detail. The patient was admitted for hypoxic respiratory failure suspected secondary to COVID pneumonitis. The patient also has a history of non-small cell lung cancer along with myelodysplastic syndrome and AML. She was last seen in the room resting comfortably at 2103 by the RN. As the RN was walking by at 2113, she noticed that the patient's oxygen nasal cannula was off and the patient was noted to be unresponsive. CODE BLUE was immediately activated and the ACLS protocol was initiated. The patient was started on CPR. She was noted to have asystole on the monitor. She was subsequently noted to have PEA. ACLS protocol was followed and patient was given 3 ampoules of epinephrine IV push and 2 ampoules of sodium bicarbonate. She was intubated by the INSPECTOR MACHINED [employer]S. ROSC was achieved at 2124 with sinus tachycardia. She was transferred to the MICU. The patient's family was notified by the RN. The contact finger assembler and the primary team were also notified. On examination, the patient's pupils were noted to be 5 mm and nonreactive, coarse breath sounds were noted bilaterally. Abdomen was soft with no lower extremity edema noted. Please refer to the code sheet for further details. Laboratory evaluation and imaging for ET tube placement was ordered. Total time spent providing total care for this patient: 40 minutes
[2023-11-09] MEDS: HYDROCORTISONE SUCCINATE 100 MG/2 ML VIAL IV STA (04:31)
[2023-11-09 04:55] LABS: Anisocytosis Moderate; HCT 22.4 % (34.0-46.0); Hypochromasia Marked; MCHC 25.6 g/dL (31.0-37.0); MCV 97.9 fL (80.0-100.0); Macrocytosis Moderate; Mean Platelet Volume 12.1; Poikilocytosis Slight; RBC 2.29 m/uL (3.80-5.40); RDW 20.8 % (11.5-15.5)
[2023-11-09 04:59] LABS: ABG HCO3 18 mmol/L (21-25); ABG Oxygen Saturation 99.1 % (94-97); ABG PCO2 47 mmHg (35-45); ABG PO2 140 mmHg (83-108); ABG TCO2 20 mmol/L (19-24)
[2023-11-09 05:07] LABS: Allen Test Performed? no
[2023-11-09] MEDS: SODIUM BICARB 8.4% 50 ML SYR (1 MEQ/ML) IV STA (05:25)
[2023-11-09 05:26] LABS: HGB 5.7 gm/dL (11.4-16.0); Platelet Count 52 k/uL (150-450)
[2023-11-09 05:36] LABS: Glucose,Whole Blood 243 mg/dL (70-110)
[2023-11-09] MEDS: DEXTROSE 5% IN WATER 1,000 ML with SODIUM BICARB (1 MEQ/ML) 150 ML IV SCH (06:01)
[2023-11-09] MEDS: INSULIN ASPART (NovoLOG) 100 UNIT/ML VIAL SQ SCH (06:02)
[2023-11-09] MEDS: INSULIN DETEMIR (LEVEMIR) 100 UNIT/ML SYR SQ SCH (06:13)
--- NOTE | 2023-11-09 07:19 | XR ---
EXAMINATION TYPE: XR chest 1V DATE OF EXAM: 11/09/2023 6:04 AM CLINICAL INDICATION: Female, 73 years old with history of post cardiac-arrest; [facility] COMPARISON: Chest radiographs from TECHNIQUE: XR chest 1V Frontal view of the chest. FINDINGS: Lungs/Pleura: Similar multifocal airspace opacities. Blunting of left costophrenic angle. No evidence of pneumothorax or right pleural effusion. Pulmonary vascularity: Unremarkable. Heart/mediastinum: Cardiomediastinal silhouette is unremarkable. Musculoskeletal: No acute osseous pathology. Other findings: None Lines/Tubes: Endotracheal tube with distal tip 1.9 cm above the leslie. Nasogastric tube with its distal tip and side-port projecting under the diaphragm. IMPRESSION: 1. Similar multifocal airspace opacities. 2. Stable support lines and tubes.
[2023-11-09 07:39] LABS: Band Neutrophils % 1 %; Metamyelocytes % 4 %; Myelocytes % 11 %; Neutrophils % (M) 12 %; Nucleated Red Blood Cells 14 /100 WBC (0-0); Promyelocytes % 4 %; Total Cells Counted 200
[2023-11-09 07:43] LABS: Blast Cells # (M) 27.82 k/uL (0); Howell-Jolly Bodies Present; Metamyelocytes # (M) 2.37 k/uL (0); Monocytes # (M) 5.92 k/uL (0-1.0); Myelocytes # (M) 6.51 k/uL (0); Polychromasia Present; Promyelocytes # (M) 2.37 k/uL (0); WBC 59.2 k/uL (3.8-10.6)
[2023-11-09 07:45] LABS: Basophilic Stippling Present; RBC Fragments Present
[2023-11-09 07:46] LABS: Spherocytes Present
[2023-11-09 08:14] VITALS: BP 85/34; PULSE 113; RESP 30
[2023-11-09] MEDS ORDERED: MORPHINE SULFATE 2 MG/ML SYRINGE IV PRN (08:28)
[2023-11-09] MEDS ORDERED: ATROPINE OPHTH SOLN 1% 5ML BTL SUBLINGUAL PRN (08:28)
[2023-11-09] MEDS ORDERED: GLYCOPYRROLATE 0.2 MG/ML 2 ML VIAL IVP PRN (08:28)
[2023-11-09] MEDS ORDERED: MORPHINE SULFATE 4 MG/ML SYRINGE IV PRN (08:28)
[2023-11-09] MEDS ORDERED: MORPHINE SULFATE 100 MG in SODIUM CHLORIDE 0.9% 90 ML IV SCH (08:30)
[2023-11-09 10:26] LABS: Band Neutrophils % 1 %; Blast Cells # (M) 40.37 k/uL (0); Eosinophils # (M) 0.86 k/uL (0-0.7); Lymphocytes # (M) 12.89 k/uL (1.0-4.8); Metamyelocytes # (M) 1.72 k/uL (0); Metamyelocytes % 2 %; Monocytes # (M) 7.73 k/uL (0-1.0); Myelocytes # (M) 8.59 k/uL (0); Myelocytes % 10 %; Neutrophils % (M) 13 %; Nucleated Red Blood Cells 10 /100 WBC (0-0); Promyelocytes # (M) 2.58 k/uL (0); Promyelocytes % 3 %; Total Cells Counted 200; WBC 85.9 k/uL (3.8-10.6)
[2023-11-09 10:27] LABS: Basophilic Stippling Present; Howell-Jolly Bodies Present; Polychromasia Present; RBC Fragments Present; Spherocytes Present
--- NOTE | 2023-11-09 10:42 | P.PN ---
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 Patient does follow in the pulmonary office with Dr. Moses. Her oncologist is Dr. Vera. Recently a concern for tumor recurrence/progression. Most recent PET scan performed on 08/15/2023 showing a left apical uptake compatible with neoplasm and stable in appearance from prior examination. New or increasing focal uptake within the left anterior lateral abdominal wall. Scattered heterogenous appearance of uptake within osseous structures may be treatment related. Not currently on any systemic treatment. Of note, patient recently had a fall sustaining a right patellar fracture, placing her at [facility] rehab facility. While at the outside facility, she did test positive for COVID reportedly on October. Unfortunately, she is progressively become more short of breath, now requiring supplemental oxygen, currently on 4 L/min nasal cannula. She does not chronically wear oxygen. Chest CTA done on arrival negative for pulmonary embolism. It did redemonstrate the left upper lobe neopl asm/consolidation along with volume loss. Additional patchy areas of consolidation of the left lower lobe and right lung. Unable to exclude superimposed multilobar pneumonia. CBC: WBC count 21, hemoglobin 7.7, hematocrit 24.2, platelets 38,000. Blast cell high blast cell count. 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 Recently underwent bone marrow biopsy. CMP: Sodium 130, potassium 4, chloride 91, serum bicarb 32, BUN 31, creatinine 0.94, glucose 132. LFTs unremarkable. Troponin less than 0.012. NT proBNP 6880. Patient currently being evaluated in the emergency department, room 11. Patient is currently resting comfortably on 4 L/min nasal cannula. She is demanding she is currently resting comfortably on 4 L/min nasal cannula. No acute respiratory distress. She is frail/cachectic. She states that she has been more short of breath over the last 2 weeks. Reportedly diagnosed with COVID at the outside facility on October. He is previously vaccinated and boosted for COVID. This is her first known infection. The patient is seen today November 06, 2023 in follow-up on the regular medical floor. She is currently sitting up in bed. Awake and alert in no acute distress. Denies any worsening shortness of breath, cough or congestion. She is feeling a bit better today compared to yesterday. She is maintaining good O2 saturations in the 90s on 4 L/min per nasal cannula. She is afebrile. Hemodynamically stable. Blood culture revealing no growth to date. White count 34.6. Hemoglobin 7.2. Platelets 34,000. Sodium 139. Potassium 3.7. Bicarb 30. BUN 29. Creatinine 1.1. Glucose 100. She is continued on Decadron, vitamin supplements. Heparin for DVT prophylaxis. Procalcitonin was 0.4. Ceftriaxone has been discontinued. She is completing a course of azithromycin. The patient is seen today November 07, 2023 in follow-up on the regular medical floor. She is awake and alert in no acute distress. Resting comfortably in bed. Denies any worsening shortness of breath, cough or congestion. She has been slow to progress. Still feeling about the same. She is maintaining good O2 saturations in the 90s on 4 L/min per nasal cannula. Sputum culture is positive for Aspergillus species, Tyra albicans. Blood culture revealing no growth. White count 49.4. Hemoglobin 7.1. Platelets 25,000. On Decadron and vitamin supplements. Lovenox for DVT prophylaxis. The patient is seen today November 08, 2023 in follow-up on the regular medical floor. She is currently resting in bed. Awake and alert in no acute distress. Denies any worsening shortness of breath, cough or congestion. Maintaining O2 saturations in the 90s on 5 L/min per nasal cannula. She is afebrile. Hemodynamically stable. Her chest x-ray shows slight progression of her multifocal pneumonia on the left lung. Urine culture was positive for Tyra and aspergillus fumigatus. She has been initiated on voriconazole per ID service. White count 69.5. Hemoglobin 6.8. Platelets 25,000. Procalcitonin 0.49. C-reactive protein 13.6. She is continued on Decadron, vitamin supplements, Lovenox for DVT prophylaxis. Patient seen on November 08/2024, she is now in the ICU. Last night at 21:14, patient apparently had a sudden episode of unresponsiveness witnessed by the nurse taking care of the patient. CODE BLUE was immediately activated, and ACLS protocol was initiated. Patient received CPR, she had asystole on the monitor, subsequently she had pulseless electrical activity, patient received 3 A of epinephrine and 2 A of sodium bicarb, she was intubated by STRUCTURAL [employer]EL [employer]AD[employer] WORKER, and return of spontaneous circulation was noted at 20: 25 patient was transferred to the ICU, and I was notified about this patient who is already familiar to my service, notified about this patient, and she has been taking a downhill course through the whole night. Multiple calls were made to me overnight, patient remained hypotensive requiring maximal therapy with multiple boluses of fluids, she also received maximal infusion of norepinephrine, maximal infusion of vasopressin, Solu-Cortef was also given, patient was also noted to have low hemoglobin, but c ould not find her type of blood/irradiated blood, and that could not be given. Her gases have remained very marginal overnight. Her initial ABG after intubation was pO2 of 199 pCO2 96 pH of 6.97 patient received bicarb, she also received bicarb drip, and follow-up ABG showed a pO2 of 53 pCO2 57 pH of 7.26. This morning the patient was placed on 85% FiO2 with a pO2 of 140 pCO2 47 pH of 7.20. Patient is quite hypotensive,In spite of maximal pressors, white count is up to 85.9 hemoglobin is 5.7 platelets are 52,000, her differential is showing significant amount of blast cells and myelocytes. Hematology oncology on the case have been entertaining the possibility of myelodysplastic syndrome her last bone marrow biopsy on 09/02/2023 showed no recurrence of acute leukemia but this was consistent with MDS. In the meantime the patient is receiving voriconazole for acute aspergillosis as noted on her positive sputum cultures. This x-ray is showing significant worsening of the opacification of the left lung and worsening infiltrates in the right lung. Her overall pulmonary status is extr sudarshan marginal. After reviewing the chart today and noticing all the abnormalities, discussed her condition with her brother over the phone, and updated the family on the overall situation. Clearly family requested comfort care measures at that point. Will proceed with comfort care measures and no further aggressive measures as the patient seems to be quite ill, and prognosis is extremely poor. Reviewed her ventilator settings, patient is on rate of 3 0 tidal volume 350, FiO2 85% PEEP of 5 patient is empirically on Zosyn and she is also on voriconazole. Patient is maximized on norepinephrine at 1 mcg/kg/min also maximized on vasopressin at 0.04 she is on D5W with 3 A of bicarb at 75 cc/ h IV fluid is at 130 cc/h. Objective - Vital Signs Vital signs: Vital Signs Temp 95.3 F L 11/09/23 00:00 Pulse 113 H 11/09/23 08:00 Resp 30 H 11/09/23 08:00 BP 85/34 11/09/23 08:00 Pulse Ox 94 L 11/09/23 04:00 FiO2 85 11/09/23 08:00 Intake & Output 11/08/23 11/09/23 11/09/23 18:59 06:59 18:59 Intake Total 3372.880 706.305 Output Total 150 25 0 Balance -150 3347.880 706.305 Weight 44.452 kg 48.2 kg Intake: IV 2910 410 Dextrose 5% in Water 1, 0 150 000 ml @ 75 mls/hr IV . [id number] DIEGO with Sodium Bicarb (1 Meq/ml) 150 ml Rx#:[id number] Sodium Chloride 0.9% 1, 910 260 000 ml @ 130 mls/hr IV . Q7H42M DIEGO Rx#:[id number] Sodium Chloride 0.9% 1, 1000 000 ml @ 999 mls/hr IV . Q1H1M ONE Rx#:[id number] Sodium Chloride 0.9% 1, 1000 000 ml @ 999 mls/hr IV . Q1H1M ONE Rx#:[id number] Intake, IV Titration 462.880 296.305 Amount Norepinephrine 4 mg In 462.880 254 Sodium Chloride 0.9% 250 ml @ 0.03 MCG/KG/MIN 5. 081 mls/hr IV .Q24H DIEGO Rx#:[id number] Vasopressin 60 unit In 42.305 Sodium Chloride 0.9% 150 ml @ 0.03 UNITS/MIN 4.59 mls/hr IV .Q24H DIEGO Rx#: [id number] Output: Urine 150 25 0 Other: Voiding Method Incontinent Indwelling Catheter Indwelling Catheter External Catheter # Voids 1 0 - Exam GENERAL EXAM: 73-year-old female intubated mechanically ventilated sedated HEAD: Normocephalic and atraumatic endotracheal tube and orogastric tube are intact. EYES: Normal reaction of pupils, equal size. NOSE: Clear with pink turbinates. THROAT: No erythema or exudates. NECK: No masses, no JVD. CHEST: No chest wall deformity. LUNGS: Crackles and rhonchi noted bilaterally. CVS: S1 and S2 normal with no audible murmur, regular rhythm. No extra heart sounds ABDOMEN: No hepatosplenomegaly, active bowel sounds, no guarding or rigidity. SKIN: No rashes CENTRAL NERVOUS SYSTEM: Could not assess, patient is fully sedated intubated mechanically ventilated EXTREMITIES: Edema, no clubbing, diminished distal pulses cold lower extremities - Labs CBC & Chem 7: 11/09/23 04:27 11/08/23 22:09 Labs: Abnormal Lab Results - Last 24 Hours (Table) 11/08/23 11/08/23 11/08/23 Range/Units 12:24 14:50 21:16 WBC (3.8-10.6) k/uL RBC (3.80-5.40) m/uL Hgb (11.4-16.0) gm/dL Hct (34.0-46.0) % MCHC (31.0-37.0) g/dL RDW (11.5-15.5) % Plt Count (150-450) k/uL Blast Cells % % Lymphocytes # (Manual) (1.0-4.8) k/uL Monocytes # (Manual) (0-1.0) k/uL Metamyelocytes # (Man) (0) k/uL Myelocytes # (Manual) (0) k/uL Promyelocytes # (Man) (0) k/uL Blast Cells # (Man) (0) k/uL Nucleated RBCs (0-0) /100 WBC ABG pH (7.35-7.45) ABG pCO2 (35-45) mmHg ABG pO2 (83-108) mmHg ABG HCO3 (21-25) mmol/L ABG Total CO2 (19-24) mmol/L ABG O2 Saturation (94-97) % Hemoglobin (11.4-16.0) gm/dL BUN (7-17) mg/dL Creatinine (0.52-1.04) mg/dL Glucose (74-99) mg/dL POC Glucose (mg/dL) 284 H (70-110) mg/dL Plasma Lactic Acid Walter (0.7-2.0) mmol/L Magnesium (1.6-2.3) mg/dL AST (14-36) U/L ALT (4-34) U/L Total Protein (6.3-8.2) g/dL Albumin (3.5-5.0) g/dL Crossmatch See Detail See Detail Blood Bank Comment Sent to [facility] 11/08/23 11/08/23 11/08/23 Range/Units 21:38 22:02 22:09 WBC 59.2 H* (3.8-10.6) k/uL RBC 2.03 L (3.80-5.40) m/uL Hgb 5.8 L* (11.4-16.0) gm/dL Hct 20.2 L (34.0-46.0) % MCHC 28.8 L (31.0-37.0) g/dL RDW 21.3 H (11.5-15.5) % Plt Count 21 L (150-450) k/uL Blast Cells % 47 H* % Lymphocytes # (Manual) 7.70 H (1.0-4.8) k/uL Monocytes # (Manual) 5.92 H (0-1.0) k/uL Metamyelocytes # (Man) 2.37 H (0) k/uL Myelocytes # (Manual) 6.51 H (0) k/uL Promyelocytes # (Man) 2.37 H (0) k/uL Blast Cells # (Man) 27.82 H (0) k/uL Nucleated RBCs 14 H (0-0) /100 WBC ABG pH 6.97 L* (7.35-7.45) ABG pCO2 96 H* (35-45) mmHg ABG pO2 199 H (83-108) mmHg ABG HCO3 (21-25) mmol/L ABG Total CO2 25 H (19-24) mmol/L ABG O2 Saturation 99.4 H (94-97) % Hemoglobin 5.6 L* (11.4-16.0) gm/dL BUN (7-17) mg/dL Creatinine (0.52-1.04) mg/dL Glucose (74-99) mg/dL POC Glucose (mg/dL) 285 H (70-110) mg/dL Plasma Lactic Acid Walter (0.7-2.0) mmol/L Magnesium (1.6-2.3) mg/dL AST (14-36) U/L ALT (4-34) U/L Total Protein (6.3-8.2) g/dL Albumin (3.5-5.0) g/dL Crossmatch Blood Bank Comment 11/08/23 11/08/23 11/08/23 Range/Units 22:09 22:09 22:40 WBC (3.8-10.6) k/uL RBC (3.80-5.40) m/uL Hgb (11.4-16.0) gm/dL Hct (34.0-46.0) % MCHC (31.0-37.0) g/dL RDW (11.5-15.5) % Plt Count (150-450) k/uL Blast Cells % % Lymphocytes # (Manual) (1.0-4.8) k/uL Monocytes # (Manual) (0-1.0) k/uL Metamyelocytes # (Man) (0) k/uL Myelocytes # (Manual) (0) k/uL Promyelocytes # (Man) (0) k/uL Blast Cells # (Man) (0) k/uL Nucleated RBCs (0-0) /100 WBC ABG pH 7.26 L (7.35-7.45) ABG pCO2 57 H (35-45) mmHg ABG pO2 53 L* (83-108) mmHg ABG HCO3 26 H (21-25) mmol/L ABG Total CO2 27 H (19-24) mmol/L ABG O2 Saturation 83.8 L (94-97) % Hemoglobin 5.5 L* (11.4-16.0) gm/dL BUN 49 H (7-17) mg/dL Creatinine 1.39 H (0.52-1.04) mg/dL Glucose 326 H (74-99) mg/dL POC Glucose (mg/dL) (70-110) mg/dL Plasma Lactic Acid Walter 14.0 H* (0.7-2.0) mmol/L Magnesium 2.7 H (1.6-2.3) mg/dL AST 593 H (14-36) U/L ALT 355 H (4-34) U/L Total Protein 4.8 L (6.3-8.2) g/dL Albumin 2.3 L (3.5-5.0) g/dL Crossmatch Blood Bank Comment 11/09/23 11/09/23 11/09/23 Range/Units 00:47 04:27 04:35 WBC 94.5 H* (3.8-10.6) k/uL RBC 2.29 L (3.80-5.40) m/uL Hgb 5.7 L* (11.4-16.0) gm/dL Hct 22.4 L (34.0-46.0) % MCHC 25.6 L (31.0-37.0) g/dL RDW 20.8 H (11.5-15.5) % Plt Count 52 L D (150-450) k/uL Blast Cells % % Lymphocytes # (Manual) (1.0-4.8) k/uL Monocytes # (Manual) (0-1.0) k/uL Metamyelocytes # (Man) (0) k/uL Myelocytes # (Manual) (0) k/uL Promyelocytes # (Man) (0) k/uL Blast Cells # (Man) (0) k/uL Nucleated RBCs (0-0) /100 WBC ABG pH (7.35-7.45) ABG pCO2 (35-45) mmHg ABG pO2 (83-108) mmHg ABG HCO3 (21-25) mmol/L ABG Total CO2 (19-24) mmol/L ABG O2 Saturation (94-97) % Hemoglobin (11.4-16.0) gm/dL BUN (7-17) mg/dL Creatinine (0.52-1.04) mg/dL Glucose (74-99) mg/dL POC Glucose (mg/dL) (70-110) mg/dL Plasma Lactic Acid Walter 11.1 H* 11.9 H* (0.7-2.0) mmol/L Magnesium (1.6-2.3) mg/dL AST (14-36) U/L ALT (4-34) U/L Total Protein (6.3-8.2) g/dL Albumin (3.5-5.0) g/dL Crossnhtch Blood Bank Comment 11/09/23 11/09/23 Range/Units 04:57 05:33 WBC (3.8-10.6) k/uL RBC (3.80-5.40) m/uL Hgb (11.4-16.0) gm/dL Hct (34.0-46.0) % MCHC (31.0-37.0) g/dL RDW (11.5-15.5) % Plt Count (150-450) k/uL Blast Cells % % Lymphocytes # (Manual) (1.0-4.8) k/uL Monocytes # (Manual) (0-1.0) k/uL Metamyelocytes # (Man) (0) k/uL Myelocytes # (Manual) (0) k/uL Promyelocytes # (Man) (0) k/uL Blast Cells # (Man) (0) k/uL Nucleated RBCs (0-0) /100 WBC ABG pH 7.20 L (7.35-7.45) ABG pCO2 47 H (35-45) mmHg ABG pO2 140 H (83-108) mmHg ABG HCO3 18 L (21-25) mmol/L ABG Total CO2 (19-24) mmol/L ABG O2 Saturation 99.1 H (94-97) % Hemoglobin 6.0 L* (11.4-16.0) gm/dL BUN (7-17) mg/dL Creatinine (0.52-1.04) mg/dL Glucose (74-99) mg/dL POC Glucose (mg/dL) 243 H (70-110) mg/dL Plasma Lactic Acid Walter (0.7-2.0) mmol/L Magnesium (1.6-2.3) mg/dL AST (14-36) U/L ALT (4-34) U/L Total Protein (6.3-8.2) g/dL Albumin (3.5-5.0) g/dL Crossmatch Blood Bank Comment Microbiology - Last 24 Hours (Table) 11/05/23 04:00 Blood Culture - Preliminary Blood 11/05/23 23:18 Gram Stain - Final Sputum Sputum Culture - Final Tyra albicans Aspergillus fumigatus Assessment and Plan Assessment: Impression: Cardiac arrest Acute pulmonary aspergillosis Possible sepsis and septic shock secondary to above Acute hypoxic and hypercapnic respiratory failure secondary to cardiac arrest and underlying pneumonia History of non-small cell lung cancer status post chemo and radiation plus immunotherapy History of AML and previous allogenic stem cell transplant 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 Discussed the option of continuing aggressive therapy or the option of comfort care measures specially with her prognosis seeming to be extremely poor and guarded. At this point in time, the brother discussed her condition with other family members called back and recommended that we proceed to comfort care measures. Will proceed to comfort care, Critical care time is over 30 minutes. Time with Patient: Greater than 30
--- NOTE | 2023-11-09 20:07 | P.DS ---
Providers Date of admission: 11/05/23 04:15 Expected date of discharge: 11/09/23 (Patient ) Attending physician: Christiano Rose Consults: 11/05/23 04:14 Consult Physician Routine Consulting Provider: Benny Díaz Consult Reason/Comments: pneumonia. Covid Do you want consulting provider notified?: Yes 11/05/23 04:16 Consult Physician Routine Consulting Provider: Nigel Vera Consult Reason/Comments: MDS/AML patient Do you want consulting provider notified?: Yes 11/07/23 13:00 Consult Physician Routine Consulting Provider: Lyndsay Vidal Consult Reason/Comments: Aspergillus Do you want consulting provider notified?: Yes Primary care physician: Nigel Vera MD Hospital Course: Patient is a 73-year-old female was sent in from [facility] as she was having shortness of breath and requiring oxygen about 5 L. Patient was recently diagnosed with COVID and there was no significant improvement because of which patient was sent in here patient had a CT of the chest which did not show any pulmonary embolism but did show infiltrate and consolidation in the left upper lobe and some patchy areas consistent with COVID-19 pneumonia patient is presently on 4 L of oxygen. Patient does have history of squamous cell lung cancer with chemoradiation and immunotherapy patient had history of AML and had stem cell transplant in the past. Patient at baseline will does not use any oxygen at home patient is cachectic thin built. Patient had proBNP of over 6000 but clinically does not appear to be in CHF at this time. Patient has been more short of breath for last couple days. Patient denies any cough at this time. Patient does not have any fever does have highly elevated white count of 21,000. November 05: Laying in bed. Cough. Decreased appetite. Tired. Added incentive spirometry. Have the patient sit up in a chair. November 06: Laying in bed. Congested cough remains. On 4 L nasal cannula. Reminded the patient to be up in a chair and use incentive spirometry. Eating about 25%. Sputum positive for Tyra albicans and Aspergillus species. Consult ID. Patient remained weak tired short of breath November 07: Up in a recliner. Some shortness of breath. Congested cough. 4 L nasal cannula. Voriconazole added by ID. Oral intake variable. Instructed about incentive spirometry and flutter valve again. Worsening white count up to 69,000 hemoglobin 6.8. Blast cells have been going up. Discussed with Dr. Vera from hematology. To look into transformation into leukemia. November 08: Overnight patient was found unresponsive. Cardiac arrest. Intubated. A team called. Patient moved to the ICU. Patient early this morning. INVESTIGATIONS, reviewed in the clinical context: November 07: White count 69, hemoglobin 6.8 platelets 25 blast cells from yesterday 23.2 CRP 13.6 procalcitonin 0.49 November 06: White count 49.4 hemoglobin 7.1 platelets 25 November 05: White count 34.6 hemoglobin 7.2 platelets 34 blast cells 41 potassium 3.7 BUN 29 creatinine 1.1 COVID PCR: Positive Chest x-ray: Moderate to large area of consolidation left upper lobe with perihilar infiltrate Chest CT: Near complete consolidation of the left upper lobe. Additional patchy areas of consolidation left lower lobe and right lung. Debris in left mainstem bronchus. Cause of : COVID-19 pneumonitis Myelodysplastic syndrome Assessment and plan -Acute hypoxic respiratory failure probably secondary to COVID-19 p pneumonitis in a prior setting of left upper lobe neoplasm and consolidation with volume loss.: Not improving 4 L oxygen Pneumonia ruled out because of negative procalcitonin Zithromax -Sputum culture positive for Aspergillus and Tyra. ID patient started on voriconazole -Acute COVID-19 pneumonitis causing hypoxia: Not improving Decadron - -Non-small cell lung cancer status post chemoradiation and immunotherapy. -Hyponatremia: There is a possibility of mild hypovolemic hyponatremia: Improved -Severe protein calorie malnutrition Add Ensure supplement -COPD Albuterol -AML status post allogenic stem cell transplant Worsening leukocytosis with blast cells. Spoke to Dr. Hugo today. To evaluate. -Bicytopenia, but worsening hemoglobin Follow with nephrology. 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, lung CA, last blood transfusion was on 08/28/23 History of Any Multi-Drug Resistant Organisms: None Reported Past Surgical History: Orthopedic Surgery, Tonsillectomy Additional Past Surgical History / Comment(s): bone marrow transplant, left ankle surgery with screw, right tib surgery with screw Past Anesthesia/Blood Transfusion Reactions: No Reported Reaction Past Psychological History: No Psychological Hx Reported Smoking Status: Former smoker Past Alcohol Use History: Rare Past Drug Use History: None Reported Plan - Discharge Summary Discharge Rx Participant: No New Discharge Prescriptions: Discontinued Cholecalciferol (Vitamin D3) [Vitamin D3 (50 Mcg = 2000 Iu)] 50 mcg PO DAILY Acetaminophen Tab [Tylenol] 650 mg PO Q6H PRN PRN Reason: Pain Quercetin 250mg 250 mg PO DAILY Albuterol Sulfate [Proair Respiclick] 1 puff INHALATION RT-Q4H PRN PRN Reason: Shortness Of Breath Lactose-Reduced Food [Ensure Plus] 237 ml PO TID@0900,1300,2100 Zinc Gluconate [Zinc] 50 mg PO DAILY Ascorbic Acid [Vitamin C] 1,000 mg PO DAILY Vit C/E/Zn/Coppr/Lutein/Zeaxan [Preservision Areds 2 Softgel] 1 cap PO BID Melatonin 6 mg PO HS PRN PRN Reason: Insomnia Calcium Carbonate [Calcium] 600 mg PO DAILY Discharge Disposition: - Preliminary Cause of Preliminary Cause of : COVID-19 pneumonitis
== END 2023-11-09 12:10 | disposition expired | DRG 208 ==
LOC: EC 22:21 → 4SSUR 11-05 04:15 → 2SICU 11-08 21:49
PROVIDERS: ADMIT Hospitalist; ATTEND Hospitalist
PROC: 0BH17EZ Insertion of Endotracheal Airway into Trachea, Via Natural or Artificial Opening (ICD-10-PCS; principal; 2023-11-08)
PROC: 5A1935Z Respiratory Ventilation, Less than 24 Consecutive Hours (ICD-10-PCS; principal; 2023-11-08)
PROC: 5A12012 Performance of Cardiac Output, Single, Manual (ICD-10-PCS; principal; 2023-11-08)
PROC: 3E033XZ Introduction of Vasopressor into Peripheral Vein, Percutaneous Approach (ICD-10-PCS; 2023-11-08)
DX: U07.1 COVID-19 (principal); E43 Unspecified severe protein-calorie malnutrition; J96.01 Acute respiratory failure with hypoxia; J96.02 Acute respiratory failure with hypercapnia; A41.9 Sepsis, unspecified organism; R65.21 Severe sepsis with septic shock; J44.0 Chronic obstructive pulmonary disease with (acute) lower respiratory infection; Z94.84 Stem cells transplant status; R64 Cachexia; E87.1 Hypo-osmolality and hyponatremia; B44.1 Other pulmonary aspergillosis; J98.19 Other pulmonary collapse; Z68.1 Body mass index [BMI] 19.9 or less, adult; Z66 Do not resuscitate; Z51.5 Encounter for palliative care; I46.9 Cardiac arrest, cause unspecified; I12.9 Hypertensive chronic kidney disease with stage 1 through stage 4 chronic kidney disease, or unspecified chronic kidney disease; D63.0 Anemia in neoplastic disease; D46.9 Myelodysplastic syndrome, unspecified; N18.2 Chronic kidney disease, stage 2 (mild); J98.4 Other disorders of lung; S82.001D Unspecified fracture of right patella, subsequent encounter for closed fracture with routine healing; W19.XXXD Unspecified fall, subsequent encounter; Z92.21 Personal history of antineoplastic chemotherapy; Z92.3 Personal history of irradiation; Z85.118 Personal history of other malignant neoplasm of bronchus and lung; Z87.891 Personal history of nicotine dependence
CPT/HCPCS: 36415; 36600; 71045; 71275; 80048; 80053; 82805; 83605; 83735; 83880; 84145; 84484; 85025; 85379; 85610; 85652; 85730; 86140; 86850; 86870; 86880; 86900; 86901; 86902; 86920; 87040; 87070; 87205; 87449; 87636; 92950; 93005; 94002; 94003; 94640; 94667; 94668; 94760; 96365; 96372; 96375; 99291